=== PATIENT | female | born 1940 | race Caucasian/White ===

== ENCOUNTER 2020-09-27 08:37 | Inpatient (IN) ==
--- NOTE | 2020-08-20 12:22 | PAT Medication Instructions ---
Medication Instructions Date of Service August 20, 2020 Home Medications trazodone 75 mg PO HS acetaminophen [Tylenol] 650 mg PO QID PRN bupropion HCl [Wellbutrin SR] 150 mg PO Q OTHER DAY metoprolol succinate [Toprol XL] 25 mg PO QAM potassium chloride [K-Tab] 10 meq PO QAM rosuvastatin [Crestor] 20 mg PO HS duloxetine 30 mg PO QAM melatonin 10 mg PO HS PRN Continue as directed bupropion HCl [Wellbutrin SR] 150 mg PO Q OTHER DAY DO NOT take the morning of surgery potassium chloride [K-Tab] 10 meq PO QAM Take morning of surgery With a small sip of water, OTHERWISE NOTHING TO EAT OR DRINK AFTER MIDNIGHT: acetaminophen [Tylenol] 650 mg PO QID PRN (okay to take up to 4 hours prior to surgery if needed) metoprolol succinate [Toprol XL] 25 mg PO QAM duloxetine 30 mg PO QAM Take evening before surgery trazodone 75 mg PO HS acetaminophen [Tylenol] 650 mg PO QID PRN (if needed) rosuvastatin [Crestor] 20 mg PO HS melatonin 10 mg PO HS PRN (if needed) Other Notes If you have any questions please call us at [phone] or [phone] or [phone] or [phone]
--- NOTE | 2020-08-24 14:32 | Anesthesiology Consultation ---
Date of Service August 24, 2020 Assessment & Plan (1) Encounter for pre-operative examination: - Per assessment on 08/24: Travel screen negative. No known COVID-19 positive contacts or current COVID-19 related symptoms. Surgeon arranging preop COVID testing (scheduled 08/30; [place]). Awaiting results. - Cardiology office visit: 04/26/20: "She is considered moderate risk from cardiovascular standpoint for a low risk procedure.. I had a long discussion with the patient regarding her cardiovascular history.. Recommend dobutamine stress echocardiography for further risk stratification given abnormal ECG and symptoms reported above. If stress testing within normal limits, she will proceed with EGD as scheduled. Continue current cardiovascular medications including Toprol-XL and statin therapy. No medication changes at this time." Patient had subsequent DSE 04/26/20 with no inducible ischemia and preserved LV systolic function. EGD done 04/2020 without issue. Chart Review Chart Review: Acceptable Risk for Surgery and Patient seen in Pre Admission Testing Teaching & Discussion Pre-Anesthesia Teaching/Discussion Notes: Instructed NPO after midnight before surgery,except medications with 15 cc of water. Medication instructions provided according to the PAT guidelines. History Surgery Operation Date: 09/03/20 10:40 Proposed Procedures p Right Reverse Total Shoulder Arthroplasty - Haris Soares, Height/Weight Height: 5 ft 2 in Weight: 69.3 kg Allergies Allergy/AdvReac Type Severity Reaction Status Date / Time oxycodone AdvReac Intermediate nausea, Verified 08/24/20 14:29 constipation, "didn't feel right" Medications Home Medications Medication Instructions Recorded Confirmed Last Taken trazodone 75 mg PO HS 12/06/18 08/24/20 07/31/20 acetaminophen [Tylenol] 650 mg PO QID PRN 02/23/20 08/24/20 07/31/20 bupropion HCl [Wellbutrin SR] 150 mg PO Q OTHER DAY 02/23/20 08/24/20 07/31/20 metoprolol succinate [Toprol XL] 25 mg PO QAM 02/23/20 08/24/20 07/31/20 potassium chloride [K-Tab] 10 meq PO QAM 02/23/20 08/24/20 07/31/20 rosuvastatin [Crestor] 20 mg PO HS 02/23/20 08/24/20 07/31/20 duloxetine 30 mg PO QAM 06/23/20 08/24/20 07/31/20 melatonin 10 mg PO HS PRN 06/23/20 08/24/20 07/31/20 Past Medical History Medical History (Updated 08/24/20 @ 15:13 by Zakia Patel) Anxiety and depression CAD (coronary artery disease) non-obstructive per 2018 cardiac cath Chronic kidney disease stage III Dyslipidemia Fracture of left ankle, lateral malleolus mechanical fall 07/2016 resulting in left ankle/foot and right shoulder injuries, non-displaced left lateral malleous fracture per 08/01/20 x-ray- ortho monitoring/recommend boot x 3-4 weeks/no surgical intervention planned at this time GERD (gastroesophageal reflux disease) + breakthrough symptoms History of kidney stones History of melanoma right calf and foot Hypertension Macular degeneration Osteoarthritis Osteopenia Tremor of both hands occasional Exercise / Class Metabolic Activity III < 4 Walking/Shop/Light housework Past Family History Family History Other No significant family history Past Surgical History Surgical History H/O total hysterectomy History of cardiac cath 2018- no stents (attempts to obtain official report unsuccesful) History of cataract surgery Left cataract extraction with IOL: 07/13/20: [place] [facility] [place] cataract extraction with IOL: 06/29/20: MAc sedation [place] [facility] [place] History of cholecystectomy History of colonoscopy History of cystoscopy MULTIPLE History of esophagogastroduodenoscopy (EGD) History of lithotripsy MULTIPLE History of parathyroidectomy HYPERCALCEMIA- REASON FOR SURGERY History of repair of rotator cuff RT History of tonsillectomy Past Anesthesia History No Hx of Anesthesia Complications and No Family Hx of Anesthesia Complications History of PONV No Hx of PONV and No Hx of Motion Sickness Social History Smoking Status: Former smoker tobacco type: cigarettes Do You Dip or Chew Tobacco: No Smoking End Date: Quit 50 years ago Hx Alcohol Use: No Hx Substance Use: No Review of Systems Patient denies chest pain, shortness of breath, dyspnea on exertion, joint pain, reflux, cough, wheezing, palpitations. Physical Exam Vital Signs VITALS BP 154/85 P 60 TEMP 98.3 SP02 97%RA RESP 16 PHYSICAL Full neck and c-spine range of motion. Full TMJ range of motion. TMD 3 finger breaths Mallampati Score 3 Dentition: intact, + crowns on molars Lungs: clear throughout to auscultation Cardiac: regular rate and rhythm, no murmurs noted Spine: normal Carotid arteries: negative bruit Extremities: left foot in orthopedic boot Testing Laboratory Results 08/24/20 14:58 08/24/20 14:58 PT 10.9 Seconds (9.0-12.0) 08/24/20 14:58 INR 1.0 (0.9-1.1) 08/24/20 14:58 APTT 25.4 Seconds (21.0-31.0) 08/24/20 14:58 Blood Type O Positive 08/24/20 14:58 Antibody Screen NEGATIVE 08/24/20 14:58 Electrocardiogram Date: 02/23/20 SB with first degree AVB at 54bpm. Septal infarct, age undetermined. Subsequent stress test. Chest X-Ray Date: 08/24/20 FINDINGS: PA and lateral chest radiographs are obtained. No prior studies are available for comparison at the time of dictation. The PA view is degraded by apical lordotic positioning. The cardiomediastinal silhouette is unremarkable noting atherosclerotic calcification of the thoracic aorta. There is mild bibasilar scarring/atelectasis. No airspace consolidation or pleural effusion is identified. There is no pneumothorax. The skeletal structures are osteopenic. Advanced arthritic change and deformity is seen in the right shoulder. A compression deformity is noted in the lower thoracic spine. Fusion hardware is partially visualized in the upper lumbar spine. Cholecystectomy clips are seen in the right upper quadrant. IMPRESSION: No active disease in the chest. Stress Test Date: 04/26/20 Type: DSE DSE is negative for inducible ischemia. LVEF 55-59%. Mild MR/TR. Grade I DD. 102% MPHR.
--- NOTE | 2020-08-24 15:35 | XRay Report ---
TWO VIEW CHEST CLINICAL HISTORY: Preoperative examination. FINDINGS: PA and lateral chest radiographs are obtained. No prior studies are available for compariso n at the time of dictation. The PA view is degraded by apical lordotic positioning. The cardiomediast inal silhouette is unremarkable noting atherosclerotic calcification of the thoracic aorta. There is mild bibasilar scarring/atelectasis. No airspace consolidation or pleural effusion is identified. The re is no pneumothorax. The skeletal structures are osteopenic. Advanced arthritic change and deformit y is seen in the right shoulder. A compression deformity is noted in the lower thoracic spine. Fusion hardware is partially visualized in the upper lumbar spine. Cholecystectomy clips are seen in the ri ght upper quadrant. IMPRESSION: No active disease in the chest. ACT 112: Negative or not required by law. Electronically signed by: Mikael Brown M.D. 08/24/2020 3:34 PM
[2020-08-24 16:10] LABS: Basophils # (auto) 0.02 K/uL (0-0.2); Basophils % (auto) 0.2 %; Eosinophils # (auto) 0.16 K/uL (0-0.5); Eosinophils % (auto) 1.8 %; Hematocrit (blood only) 34.6 % (37-47); Hemoglobin 11.6 g/dL (12.0-16.0); Immature Granulocytes # (auto) 0.02 K/uL (0.00-0.02); Immature Granulocytes % (auto) 0.2 %; Lymphocytes # (auto) 2.08 K/uL (1.2-3.4); Lymphocytes % (auto) 23.9 %; Mean Corpuscular Hgb Conc 33.5 g/dL (32-36); Mean Corpuscular Volume 95.3 fL (80-100); Mean Platelet Volume 9.9 fL (7.4-10.4); Monocytes # (auto) 0.49 K/uL (0.11-0.59); Monocytes % (auto) 5.6 %; Neutrophils # (auto) 5.93 K/uL (1.4-6.5); Neutrophils % (auto) 68.3 %; Platelet Count 231 K/uL (130-400); RDW Coefficient of Variation 12.8 % (11.5-14.5); RDW Standard Deviation 44.8 fL (36.4-46.3); Red Blood Count 3.63 M/uL (4.2-5.4)
[2020-08-24 16:21] LABS: Calcium 10.1 mg/dl (8.5-10.1); Creatinine Clr Calc Pharmacy 39.6 ml/min; Est GFR (African American) 58.5; Est GFR (Non-African American) 50.5; Potassium 4.3 mmol/L (3.5-5.1)
[2020-08-24 16:32] LABS: Partial Thromboplastin Ratio 0.9; Partial Thromboplastin Time 25.4 Seconds (21.0-31.0); Prothrombin Time 10.9 Seconds (9.0-12.0)
[2020-09-01 14:06] LABS: SARS CoV2 RNA (COVID-19) NOT DETECTED (NOT DETECTED)
--- NOTE | 2020-09-02 14:33 | History & Physical Report ---
Date of Service September 02, 2020 Assessment & Plan (1) Rotator cuff arthropathy of right shoulder: We will proceed with a right reverse shoulder arthroplasty. Postoperatively she will be placed in a sling and kept overnight in the hospital for postoperative medical management. She plans to go to outpatient physical therapy upon discharge. She will be living with her son for 3 weeks who lives out of town. Present on Admission?: Yes History of Present Illness Chief Complaint: Rotator cuff arthropathy of the right shoulder Primary Care Provider: Von Hernandez DO Lakshmi is a pleasant 80-year-old female who is been dealing with chronic increasing right shoulder pain. X-rays and clinical examination have been diagnostic for advanced rotator cuff arthropathy of her right shoulder. She can no longer lift her arm. She lives in constant pain. After failing conservative treatment, she has elected to proceed with a right reverse shoulder arthroplasty. Allergies Allergy/AdvReac Type Severity Reaction Status Date / Time oxycodone AdvReac Intermediate nausea, Verified 08/24/20 14:29 constipation, "didn't feel right" Home Medications Home Medications Medication Instructions Recorded Confirmed Type trazodone 75 mg PO HS 12/06/18 08/24/20 History acetaminophen [Tylenol] 650 mg PO QID PRN 02/23/20 08/24/20 History bupropion HCl [Wellbutrin SR] 150 mg PO Q OTHER DAY 02/23/20 08/24/20 History metoprolol succinate [Toprol XL] 25 mg PO QAM 02/23/20 08/24/20 History potassium chloride [K-Tab] 10 meq PO QAM 02/23/20 08/24/20 History rosuvastatin [Crestor] 20 mg PO HS 02/23/20 08/24/20 History duloxetine 30 mg PO QAM 06/23/20 08/24/20 History melatonin 10 mg PO HS PRN 06/23/20 08/24/20 History Past Med/Surg History Medical History Anxiety and depression CAD (coronary artery disease) non-obstructive per 2018 cardiac cath Chronic kidney disease stage III Dyslipidemia Fracture of left ankle, lateral malleolus mechanical fall 07/2016 resulting in left ankle/foot and right shoulder injuries, non-displaced left lateral malleous fracture per 9/6/20 x-ray- ortho monitoring/recommend boot x 3-4 weeks/no surgical intervention planned at this time GERD (gastroesophageal reflux disease) + breakthrough symptoms History of kidney stones History of melanoma right calf and foot Hypertension Macular degeneration Osteoarthritis Osteopenia Tremor of both hands occasional Surgical History H/O total hysterectomy History of cardiac cath 2017- no stents (attempts to obtain official report unsuccesful) History of cataract surgery Left cataract extraction with IOL: 07/13/20: MAC sedation at [facility] Right cataract extraction with IOL: 06/29/20: MAc sedation at [facility] History of cholecystectomy History of colonoscopy History of cystoscopy MULTIPLE History of esophagogastroduodenoscopy (EGD) History of lithotripsy MULTIPLE History of parathyroidectomy HYPERCALCEMIA- REASON FOR SURGERY History of repair of rotator cuff RT History of tonsillectomy Family History Other No significant family history Social History Smoking Status: Former smoker Smoking End Date: Quit 50 years ago; Second Hand Exposure: No; Do You Dip or Chew Tobacco: No; Hx Alcohol Use: No Hx Substance Use: No Preferred Language: [place] Communication Ability: Effective Health Program Analyst Required: No Beliefs That Will Affect Care: None Current Living Situation: Alone Feels Safe at Home: Yes Safety Concerns: Feels Safe At This Time Assistive Devices: Cane and Glasses Review of Systems Review of Systems: All systems reviewed & are unremarkable except as noted in HPI & below Physical Exam Constitutional: WD/WN, vitals as above Eyes: PERRL, conjunctivae normal, anicteric sclerae ENMT: external ear and nose normal, oropharynx normal Neck: trachea midline, no thyromegaly Respiratory: normal respiratory effort Cardiovascular: RRR, no murmur, no edema Gastrointestinal (Abdomen): normal bowel sounds, soft, nontender, no hepatosplenomegaly Musculoskeletal: Physical examination of the right shoulder reveals decreased range of motion and significant weakness. There is tenderness palpation along the anterior glenohumeral joint line. The right upper extremity is neurovascularly intact. Psychiatric: A+Ox3, euthymic affect Results & Data Results & Data ([facility]) Diagnostic Findings Radiographs of the right shoulder show some signs of osteoarthritis with blunting of the greater tuberosity and some superior migration of the humeral head on the glenoid. PG Care Time/CCT Total # of Minutes Spent Total Time Spent with Patient: Total time spent is greater than 50% in coordination of care (as documented) at patient's floor/unit and/or counseling patient: Coding Level of Care Code None Diagnoses Rotator cuff arthropathy of right shoulder M12.811
--- NOTE | 2020-09-23 08:45 | History & Physical Report ---
Date of Service September 23, 2020 Assessment & Plan (1) Rotator cuff arthropathy of right shoulder: We will proceed with a right reverse shoulder arthroplasty. Postoperatively she will be placed in a sling and kept overnight for postop medical management. She plans to go to outpatient physical therapy upon discharge. Present on Admission?: Yes History of Present Illness Chief Complaint: Rotator cuff arthropathy of the right shoulder Primary Care Provider: Von Hernandez DO Lakshmi is a pleasant 80-year-old female who is been dealing with chronic right shoulder pain. 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 She can no longer lift her arm. After failing conservative treatment, she has elected proceed with a right reverse shoulder arthroplasty. Allergies Allergy/AdvReac Type Severity Reaction Status Date / Time oxycodone AdvReac Intermediate nausea, Verified 09/22/20 13:26 constipation, "didn't feel right" Home Medications Home Medications Medication Instructions Recorded Confirmed Type trazodone 75 mg PO HS 12/06/18 09/22/20 History acetaminophen [Tylenol] 650 mg PO QID PRN 02/23/20 09/22/20 History bupropion HCl [Wellbutrin SR] 150 mg PO Q OTHER DAY 02/23/20 09/22/20 History metoprolol succinate [Toprol XL] 25 mg PO QAM 02/23/20 09/22/20 History potassium chloride [K-Tab] 10 meq PO QAM 02/23/20 09/22/20 History rosuvastatin [Crestor] 20 mg PO HS 02/23/20 09/22/20 History duloxetine 30 mg PO QAM 06/23/20 09/22/20 History melatonin 10 mg PO HS PRN 06/23/20 09/22/20 History Past Med/Surg History Medical History Anxiety and depression CAD (coronary artery disease) non-obstructive per 2018 cardiac cath Chronic kidney disease stage III Dyslipidemia Fracture of left ankle, lateral malleolus mechanical fall 07/2016 resulting in left ankle/foot and right shoulder injuries, non-displaced left lateral malleous fracture per 08/01/20 x-ray- ortho monitoring/recommend boot x 3-4 weeks/no surgical intervention planned at this time GERD (gastroesophageal reflux disease) + breakthrough symptoms History of kidney stones History of melanoma right calf and foot Hypertension Macular degeneration Osteoarthritis Osteopenia Tremor of both hands occasional Surgical History H/O total hysterectomy History of cardiac cath 2017- no stents (attempts to obtain official report unsuccesful) History of cataract surgery Left cataract extraction with IOL: 07/13/20: [place] [facility] [place] extraction with IOL: 06/29/20: MA[place] [facility] [place] History of cholecystectomy History of colonoscopy History of cystoscopy MULTIPLE History of esophagogastroduodenoscopy (EGD) History of lithotripsy MULTIPLE History of parathyroidectomy HYPERCALCEMIA- REASON FOR SURGERY History of repair of rotator cuff RT History of tonsillectomy Family History Other No significant family history Social History Smoking Status: Former smoker Second Hand Exposure: No; Hx Alcohol Use: No Hx Substance Use: No Preferred Language: Wolof Communication Ability: Effective Engineering Production Liaison Required: No Beliefs That Will Affect Care: None Current Living Situation: Alone Feels Safe at Home: Yes Assistive Devices: Cane and Glasses Review of Systems Review of Systems: All systems reviewed & are unremarkable except as noted in HPI & below Physical Exam Constitutional: WD/WN, vitals as above Eyes: PERRL, conjunctivae normal, anicteric sclerae ENMT: external ear and nose normal, oropharynx normal Neck: trachea midline, no thyromegaly Respiratory: normal respiratory effort Cardiovascular: RRR, no murmur, no edema Gastrointestinal (Abdomen): normal bowel sounds, soft, nontender, no hepatosplenomegaly Musculoskeletal: Physical examination of the right shoulder reveals decreased range of motion and significant weakness. There is tenderness palpation along the anterior glenohumeral joint line. The right upper extremity is neurovascularly intact. Psychiatric: A+Ox3, euthymic affect Results & Data Results & Data ([facility]) Diagnostic Findings Radiographs of the right shoulder show some signs of osteoarthritis with blunting of the greater tuberosity and some superior migration of the humeral head on the glenoid. PG Care Time/CCT Total # of Minutes Spent Total Time Spent with Patient: Total time spent is greater than 50% in coordination of care (as documented) at patient's floor/unit and/or counseling patient: Coding Level of Care Code None Diagnoses Rotator cuff arthropathy of right shoulder M12.811
[~2020-09-27 08:37] MED LIST: ACETAMINOPHEN 500 MG TAB PO SCH; BUPIVACAINE 0.5 % 5 MG/1 ML PF 10ML VIAL ONE; FAMOTIDINE 20 MG TAB PO SCH; GABAPENTIN 300 MG CAP PO SCH; LR 15ML/HR IV SCH; LR 60ML/HR IV SCH; ROPIVACAINE 0.5% HCL/PF 150 MG, BUPIVACAINE 0.5% MPF 30 ML, EPINEPHrine 30MG/30ML (OR U... INSTIL SCH; TRANEXAMIC ACID 1,000 MG **IV Intra-op IV SCH; TRANEXAMIC ACID 1,000 MG **IV Pre-op IV SCH; ceFAZolin 1000MG 1,000 MG/7.5 ML SYR IV SCH; dexAMETHasone 4 MG TAB PO SCH
--- NOTE | 2020-09-27 09:30 | History & Physical Bridge Note ---
Date of Service September 27, 2020 History & Physical Bridge Note I have examined the patient, reviewed the History & Physical and in the interval since the performance of the History & Physical I have noted the following changes of clinical significance: no changes noted
[2020-09-27] MEDS ORDERED: ONDANSETRON INJ 2 MG/ML 2 ML VIAL ONE ×2 (10:27→10:39)
[2020-09-27] MEDS ORDERED: MIDAZOLAM HCL 1 MG/ML 2ML VIAL ONE ×2 (10:27→10:39)
[2020-09-27] MEDS ORDERED: PROPOFOL IV EMULSION 10 MG/ML 20 ML VIAL IV ONE ×2 (10:27→10:39)
[2020-09-27] MEDS ORDERED: DEXAMETHASONE SOD INJ 4 MG/ML VIAL ONE ×2 (10:27→10:39)
[2020-09-27] MEDS ORDERED: LIDOCAINE HCL 2% 2 ML VIAL/AMP(20MG/ML) INFIL ONE ×2 (10:27→10:39)
[2020-09-27] MEDS ORDERED: fentaNYL citrate 100 MCG/2 ML VIAL ONE ×2 (10:27→10:39)
[2020-09-27] MEDS ORDERED: NEOSTIGMINE METHYLSULFATE 5 MG/5 ML SYR ONE (10:39)
[2020-09-27] MEDS ORDERED: GLYCOPYRROLATE 0.2 MG/ML VIAL ONE ×2 (10:39→12:38)
[2020-09-27] MEDS ORDERED: ORTHO JOINT ANESTHETIC ONE (10:41)
[2020-09-27] MEDS ORDERED: fentaNYL citrate 100 MCG/2 ML VIAL IV PRN (10:45)
[2020-09-27] MEDS ORDERED: ePHEDrine sulfate 50 MG/ML AMP IV PRN (10:45)
[2020-09-27] MEDS ORDERED: ONDANSETRON INJ 2 MG/ML 2 ML VIAL IV PRN ×2 (10:45→14:10)
[2020-09-27] MEDS ORDERED: ATROPINE SULFATE 0.1 MG/ML 10ML SYR IV PRN (10:45)
[2020-09-27] MEDS ORDERED: ROCURONIUM BROMIDE 10 MG/ML 5 ML VIAL IV ONE ×4 (10:46)
[2020-09-27] MEDS ORDERED: LR 60ML/HR IV SCH (11:00)
--- NOTE | 2020-09-27 12:45 | Operative Report ---
PG Post Operative Report Pre & Post Diagnosis Operation Date: 09/27/20 10:55 Pre-Op Diagnosis: Rotator cuff arthropathy of the right shoulder with tendinopathy of the long head of the biceps tendon Post-Op Diagnosis: Rotator cuff arthropathy of the right shoulder with tendinopathy of the long head of the biceps tendon I identified the patient and participated in the time-out.: Yes Procedure Operation Date: 09/27/20 10:55 Actual Procedures p Right Reverse Total Shoulder Arthroplasty, with open biceps tenodesis as a distinct and separate procedure (modifier 59) (Right) - Haris Soares DO Surgeon Haris Soares DO Industrial Conveyor Belt Repairer Haris Sifuentes PAC Estimated Blood Loss 200 Findings Consistent with Post-Op Diagnosis Specimens Right humeral head Complications none Disposition Disposition: Recovery Room Indications Lakshmi is a pleasant 80-year-old female who is been dealing with chronic increasing right shoulder pain. She has a history of a rotator cuff repair in the past. She is gone on to develop cuff arthropathy of the right shoulder. After failing conservative treatment, she has elected to proceed with a right reverse shoulder arthroplasty. Description of Procedure A CPT code modifier 59: The long head of the biceps tendon was enlarged and inflamed consistent with tendinopathy. A tenodesis was opted. This was a separate and distinct portion of the procedure. For these reasons, a CPT code modifier 59 will be added to this case. Implants used: I used a [employer]omet Comprehensive reverse total shoulder arthroplasty system with a size 6 press fit micro humeral stem, a +6 humeral tray and a standard humeral bearing, a 25 mm small augment baseplate with a 6.5 mm central screw and superior, inferior, and anterior locking screws, and a size 36 mm eccentric glenosphere. Lakshmi arrived at [facility] for the above procedure. She was seen in the preoperative holding area and the operative extremity was identified and signed. She was given a preoperative antibiotic, TXA, and an interscalene nerve block. She was taken back to the operating room, laid on table in supine position, and put under general anesthesia. She was then put into the beachchair position. The shoulder was then prepped and draped in sterile fashion. A timeout was done and the patient and the operative extremity was properly identified. A deltopectoral approach was used. Dissection was taken down through the fascia and the deltoid was retracted laterally and the conjoined tendon was retracted medially. The anterior shoulder was exposed. The biceps groove was opened up and the biceps tendon was examined extensively. The biceps tendon demonstrated enlargement and inflammatory changes consistent with longstanding inflammation in the context of osteoarthritis and cuff arthropathy. The long head of the biceps tendon was then tenodesed to the upper border of the pectoralis major. This was a separate and distinct portion of the procedure. The subscapularis was then directly released off the lesser tuberosity with a peel technique. The inferior capsule was released and the humeral head was dislocated. A canal finding reamer was sent down the center of the humeral canal. Sequential reaming up to a size 6 reamer was done. Off that reamer, a proximal humeral resection guide was placed. The proximal humerus was resected at 135 of inclination and 25 of retroversion. Osteophytes were then removed and the glenoid was exposed. Time was spent doing a complete capsular and labral release. The glenoid guide was then placed in the inferior aspect of the glenoid. A 3.2 mm Steinmann pin was then placed into the glenoid vault at 10 of inclination. . The glenoid baseplate was then reamed. The final size 25 mm small augment baseplate was then impacted in the place. A 6.5 mm central screw was then placed followed by superior, inferior, and anterior locking screws. A 36 mm eccentric glenosphere was then impacted into place. Surrounding soft tissues were then injected with 100 cc an orthopedic pain control cocktail. The proximal humerus was then exposed. Sequential broaching of the humerus up to a size 6 broach was done. Off that broach a +6 humeral tray was trialed. The shoulder was then reduced, brought through a full range of motion, and felt to be stable. The shoulder was then dislocated and the broach was removed. The final size 6 micro press-fit humeral stem was then impacted into place. A standard humeral bearing was then snapped onto a +6 humeral tray. The humeral tray was then impacted onto the humeral stem. The shoulder was once again reduced, brought through a full range of motion, and felt to be stable. The subscapularis was then tenodesed back to the lesser tuberosity with transosseous FiberWire sutures and side to side sutures with the arm in 45 of external rotation. A dilute betadyne lavage was then done for 3 minutes. The joint was then irrigated with normal saline solution. Hemostasis was obtained. The interval was closed with 2-0 Vicryl suture. The skin was then closed with 2-0 Vicryl and jamel. A Silverlon dressing was placed and the arm was rested in a regular arm sling. She was then extubated and transferred to a hospital bed. She taken to the postanesthesia care unit in stable condition. She tolerated the procedure well. Haris Sifuentes PA-C, was present for the entire procedure. He was critical for patient positioning, prepping, draping, retraction exposure, wound closure and application of sterile dressing. I attest to the content of the Intraoperative Record and any orders documented therein. Any exceptions are noted below.
[2020-09-27] MEDS ORDERED: MAGNESIUM HYDROXIDE SUSP 30 ML UDC PO PRN (14:10)
[2020-09-27] MEDS ORDERED: oxyCODONE HCL IR 5 MG TAB (IMMEDIATE RELEASE) PO PRN (14:10)
[2020-09-27] MEDS ORDERED: METOCLOPRAMIDE HCL INJ 5 MG/ML 2 ML VIAL IV PRN (14:10)
[2020-09-27] MEDS ORDERED: SODIUM CHLORIDE 0.9% 1000ML 1,000 ML IV SCH (14:10)
[2020-09-27] MEDS ORDERED: NALOXONE HCL 0.4 MG/1 ML VIAL/CARP IV PRN (14:10)
[2020-09-27] MEDS ORDERED: HYDROmorphone INJ 0.5 MG/0.5 ML SYR IV PRN (14:10)
[2020-09-27] MEDS ORDERED: HYDROCODONE/ACETAMOPHEN 5/325MG TAB PO PRN (14:10)
[2020-09-27] MEDS ORDERED: bisacodyL 10 MG SUPP PR PRN (14:10)
[2020-09-27] MEDS ORDERED: Nursing to Pharmacy Communication SCH (14:15)
[2020-09-27] MEDS ORDERED: COUGH DROP (SUGAR FREE) LOZ 24 LOZ/1 BOX BUCCAL PRN (14:19)
--- NOTE | 2020-09-27 14:42 | XRay Report ---
XR shoulder RT min 2V routine HISTORY: 80 years-old Female Post shoulder surgery right shoulder total joint arthroplasty COMPARISON: Chest radiograph 08/24/2020 TECHNIQUE: 2 views of the right shoulder FINDINGS: Reverse right shoulder total joint arthroplasty demonstrates satisfactory alignment. Overlying skin s taples are noted along with expected postsurgical soft tissue swelling and deep tissue air. Fracture with mild displacement of the right acromium appears unchanged from 08/24/2020. There is widening of t he AC joint. No acute fracture identified. Imaged lung sims appear clear. IMPRESSION: Satisfactory alignment of the reverse right shoulder total joint arthroplasty ACT 112: Negative or not required by law. The above report was generated using voice recognition software. It may contain grammatical, syntax o r spelling errors. Electronically signed by: Brain Leavitt M.D. 09/27/2020 2:41 PM
--- NOTE | 2020-09-27 15:13 | Anesthesiology Progress Note ---
Date of Service September 27, 2020 Anesthesia Post Procedure Vital Signs Vital Signs: Temp Pulse Pulse Resp BP Pulse Ox 09/27/20 15:06 36.5 C 67 16 115/65 93 09/27/20 14:26 62 15 119/71 95 09/27/20 13:59 36.4 C L 64 15 107/66 94 09/27/20 13:40 36.3 C L 63 18 121/57 L 96 09/27/20 13:30 63 17 122/53 L 93 09/27/20 13:20 63 17 124/52 L 99 09/27/20 13:10 66 19 130/54 L 100 09/27/20 13:04 36.0 C L 73 16 137/62 99 09/27/20 10:01 37 C 55 L 18 164/79 H 98 09/27/20 09:17 37 C 56 L 18 154/80 H 95 Pain Intensity Right Shoulder: Pain Intensity: 0 Transfer of Care Handoff Completed per policy Notes Mental Status: alert / awake / arousable and participated in evaluation Patient Amnestic to Procedure: Yes Nausea / Vomiting: adequately controlled Pain: adequately controlled Airway Patency, RR, SpO2: stable & adequate BP & HR: stable & adequate Hydration State: stable & adequate Anesthetic Complications: no major complications apparent and Pt Satisfied with anesthetic care
[2020-09-27] MEDS: KETOROLAC TROMETHAMINE 15 MG/ML VIAL IV SCH ×2 (15:31→21:38)
[2020-09-27] MEDS: ACETAMINOPHEN 500 MG TAB PO SCH (18:05)
[2020-09-27] MEDS: ceFAZolin 2000MG 2,000 MG/15 ML SYR IV SCH (18:12)
[2020-09-27] MEDS ORDERED: ROSUVASTATIN CALCIUM 20 MG TAB PO SCH (21:00)
[2020-09-27] MEDS ORDERED: SENNA 8.6 MG TAB PO SCH (21:00)
[2020-09-27] MEDS ORDERED: traZODone HCL 50 MG TAB PO SCH (21:00)
[2020-09-27] MEDS ORDERED: MELATONIN 3 MG TAB PO PRN ×2 (21:03→21:07)
[2020-09-27] MEDS: DOCUSATE SODIUM 100 MG CAP PO SCH (21:37)
[2020-09-28] MEDS: ceFAZolin 2000MG 2,000 MG/15 ML SYR IV SCH (03:39)
[2020-09-28] MEDS: KETOROLAC TROMETHAMINE 15 MG/ML VIAL IV SCH ×2 (03:40→07:59)
[2020-09-28] MEDS: ACETAMINOPHEN 500 MG TAB PO SCH (06:10)
[2020-09-28 06:27] LABS: Hemoglobin 10.5 g/dL (12.0-16.0); Immature Granulocytes # (auto) 0.03 K/uL (0.00-0.02); Immature Granulocytes % (auto) 0.2 %; Lymphocytes # (auto) 1.28 K/uL (1.2-3.4); Lymphocytes % (auto) 9.8 %; Mean Corpuscular Hemoglobin 31.7 pg (25-34); Mean Corpuscular Hgb Conc 33.9 g/dL (32-36); Mean Corpuscular Volume 93.7 fL (80-100); Mean Platelet Volume 9.7 fL (7.4-10.4); Monocytes # (auto) 0.59 K/uL (0.11-0.59); Monocytes % (auto) 4.5 %; Neutrophils # (auto) 11.12 K/uL (1.4-6.5); Neutrophils % (auto) 85.5 %; Platelet Count 224 K/uL (130-400); RDW Coefficient of Variation 12.1 % (11.5-14.5); Red Blood Count 3.31 M/uL (4.2-5.4); White Blood Count 13.02 K/uL (4.8-10.8)
[2020-09-28 06:53] LABS: Creatinine Clr Calc Pharmacy 36.5 ml/min; Est GFR (African American) 53.5; Est GFR (Non-African American) 46.2; Potassium 4.3 mmol/L (3.5-5.1)
--- NOTE | 2020-09-28 07:04 | Orthopedic Progress Note ---
Date of Service September 28, 2020 Assessment & Plan (1) Status post reverse arthroplasty of right shoulder: Overall she is doing fairly well. She is not in much pain in the right shoulder. She will be seen by physical therapy today for ambulation and range of motion exercises. She can be discharged home later this morning. She will follow-up with orthopedics in 2 weeks. Present on Admission?: Yes Admission and Anticipated Discharge Date Admission Date: September 27, 2020 Edison Martins was seen and examined at bedside this morning. Overall she is doing very well. She is not having any pain in the right shoulder. The block is still in effect. She was able to get some sleep last night. She has no complaints. Physical Exam Physical Exam: On physical examination of the right shoulder, the dressing is clean and dry. She is wearing her sling as instructed. I am unable to do a neurologic examination because the block is still in effect. Results & Data ([facility]) Vital Signs (Past 12 Hours) Vital Signs Temp Pulse Resp BP Pulse Ox 09/28/20 03:45 36.6 C 58 L 16 156/77 H 97 09/28/20 00:00 36.2 C L 54 L 15 133/72 93 09/27/20 19:08 36.4 C L 56 L 16 127/71 95 Laboratory Results H & H 08/24/20 09/28/20 Range/Units 14:58 06:01 Hgb 11.6 L 10.5 L (12.0-16.0) g/dL Hct 34.6 L 31.0 L (37-47) % Coagulation 08/24/20 Range/Units 14:58 INR 1.0 (0.9-1.1) Diagnostic Findings Postoperative x-rays of the right shoulder show the prosthesis to be in anatomic alignment without any evidence of fracture, dislocation, or loosening. PG Care Time/CCT Total # of Minutes Spent Total Time Spent with Patient: Total time spent is greater than 50% in coor dination of care (as documented) at patient's floor/unit and/or counseling patient: Coding Level of Care Code None Diagnoses Status post reverse arthroplasty of right shoulder Z96.611
--- NOTE | 2020-09-28 07:07 | Discharge Summary ---
Date of Service September 28, 2020 Admission HPI Per Admitting Provider Lakshmi is a pleasant 80-year-old female who is been dealing with chronic right shoulder pain. 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 She can no longer lift her arm. After failing conservative treatment, she has elected proceed with a right reverse shoulder arthroplasty. Principal Diagnosis Right reverse shoulder replacement Discharge Data Allergies Allergy/AdvReac Type Severity Reaction Status Date / Time oxycodone AdvReac Intermediate nausea, Verified 09/27/20 09:20 constipation, "didn't feel right" Consultations 09/27/20 14:10 Consult Case Management - Discharge Planning Routine Procedures Performed Operation Date: 09/27/20 10:55 Actual Procedures p Right Reverse Total Shoulder Arthroplasty, Uncemented(Right) - Haris Soares DO Ordered Studies 09/03/20 05:00 US - OR guided needle placemen Routine 09/27/20 05:00 US - OR guided needle placemen Routine Hospital Course (1) Status post reverse arthroplasty of right shoulder: On September 27, 2020 Leidy arrived at [facility] and underwent a right reverse shoulder arthroplasty without complication. She had a general anesthetic and a right interscalene nerve block. Postoperatively she was placed in a sling and transferred to the general orthopedic floors. Her hospital course was uneventful. On postop day #1 her H&H was stable and her pain was well controlled. She was seen by physical therapy and was able to do ambulation and range of motion exercises. She was then discharged home. She will follow- up with orthopedics in 2 weeks. Total Time Total Time Spent Total Time Spent (In Minutes): 20 Discharge Plan Discharge Items Patient Disposition: Home - Home Health Services Reason For Visit: Right Shoulder Degenerative Joint Disease Discharge Diagnosis: Right reverse shoulder Activity: As commented below Non-emergency contact: Surgeon Call non-emergency contact if: your wound has increased redness and your wound has increased drainage Follow-up/Referrals: Von Hernandez DO [Primary Care Provider] - Diet: Regular Addtl Attending Provider Instructions: Activity and Therapy Recommendations: * If you are using [facility] then therapy will be provided at your home until they feel you have accomplished all of your goals. * If you are using [facility] then Physical Therapy will be provided until they feel you are ready to start Outpatient Physical Therapy. * If you are not using home therapy then Outpatient Physical Therapy should start about 3-5 days from your day of surgery. Therapy will last about 8-12 weeks * Wear your sling for 3 weeks, unless otherwise instructed. You may remove your sling to shower and to dress, but otherwise, you should be in your sling at all times, including while sleeping * The shoulder replacement is very stable and you can use your hand while in the sling * You were shown a series of exercises in the hospital. Do these exercises daily including the exercises you were shown in physical therapy. Medications: * Narcotic You will likely be sent home from the hospital with a prescription for the narcotic pain medication that worked best throughout your stay. * Other medications may be prescribed for specific circumstances. If you have any questions, please call the office at . * Resume previous home medications unless otherwise instructed Dressing Care: Leave the Silverlon dressing in place for 7 days. After 7 days you may remove the dressing. If the incision is not draining then you may leave the jamel open to air. If there is a little bit of drainage or if the jamel are getting stuck on your clothing then cover the incision with a dry dressing. The jamel will be removed at your 2 week follow-up appointment. Showering: You may shower with the Silverlon dressing in place. Do not let the shower spray hit the dressing directly. Pat the Silverlon dressing dry. If the dressing becomes wet underneath, then simply remove the dressing. Keep the incision dry until you are 7 days out from the day of surgery. After 7 days you may remove the Silverlon dressing and shower with the jamel exposed. Let soapy water run over the jamel and pat them dry. Do not scrub or soak the incision. Things To Watch For: * Drainage from the incision site that occurs more than one week after your surgery. * Increased redness at the incision site. * Fever above 102 degrees Fahrenheit. * Unusual chest pain or shortness of breath. * Call [facility] at with any of the above problems Follow-Up Visit: Follow-up with Dr. Soares's PA (Haris Sifuentes) 2-3 weeks after your day of surgery. He will remove your jamel and answer any questions. If you have any additional questions or concerns, Dr Soares is usually in the office at the same time and will be available An appointment was probably scheduled when you signed-up for surgery in the office. If you have any questions call More detailed instructions as well as Frequently Asked Questions were provided in a folder by our office when you signed-up for surgery. Please review these instructions when you get home. If you have any further questions or concerns, please feel free to call the office at [phone] Pending Studies at Discharge: No Stand-Alone Forms: [facility], Sm[facility] Cessation Medications and DC Order Prescriptions: New tramadol 50 mg tablet 50 mg PO Q6H PRN (Reason: pain) Qty: 30 RF: 0 Continued bupropion HCl [Wellbutrin SR] 150 mg tablet sustained-release 12 hr 150 mg PO Q OTHER DAY RF: 0 potassium chloride [K-Tab] 10 mEq Tablet Extended Release 10 meq PO QAM RF: 0 metoprolol succinate [Toprol XL] 25 mg tablet extended release 24 hr 25 mg PO QAM RF: 0 rosuvastatin [Crestor] 20 mg tablet 20 mg PO HS RF: 0 acetaminophen [Tylenol] 325 mg Capsule 650 mg PO QID PRN (Reason: Pain) RF: 0 psyllium husk [Metamucil] 0.4 gram Capsule 0.4 g PO DAILY RF: 0 [employer] 1 cap PO DAILY RF: 0 trazodone 50 mg Tablet 75 mg PO HS RF: 0 duloxetine 30 mg Capsule,Delayed Release(Dr/Ec) 30 mg PO QAM RF: 0 melatonin 10 mg Tablet 10 mg PO HS PRN (Reason: Sleep) RF: 0 Discharge Orders: Discharge Order (Routine); Ordered 09/28/20 Ordered By: Haris Soares Admission Data Admit Date/Time: 09/27/20 13:06 Attending Provider: Haris Soares Admit Provider: Haris Soares Primary Care Provider: Von Hernandez Coding Level of Care Code D/C Day Management <30 mins Diagnoses Status post reverse arthroplasty of right shoulder Z96.611
[2020-09-28] MEDS: DOCUSATE SODIUM 100 MG CAP PO SCH (07:59)
[2020-09-28] MEDS ORDERED: dexAMETHasone 4 MG TAB PO SCH (08:00)
[2020-09-28] MEDS ORDERED: METOPROLOL SUCC 25MG EXT REL TAB PO SCH (09:00)
[2020-09-28] MEDS ORDERED: MULTIVITAMIN TAB PO SCH (09:00)
[2020-09-28] MEDS ORDERED: buPROPion SR 150 MG TABCR PO SCH (09:00)
[2020-09-28] MEDS ORDERED: POTASSIUM CHLORIDE 10 MEQ TABCR PO SCH (09:00)
[2020-09-28] MEDS ORDERED: DULoxetine HCL 30 MG CAP PO SCH (09:00)
--- NOTE | 2020-09-28 10:28 | Anesthesiology Progress Note ---
Date of Service September 28, 2020 Anesthesia Post Procedure Vital Signs Vital Signs: Temp Pulse Pulse Resp BP Pulse Ox 09/28/20 08:29 36.6 C 63 59 L 16 125/74 92 09/28/20 07:13 36.6 C 59 L 16 125/74 92 09/28/20 03:45 36.6 C 58 L 16 156/77 H 97 09/28/20 00:00 36.2 C L 54 L 15 133/72 93 09/27/20 19:08 36.4 C L 56 L 16 127/71 95 09/27/20 16:00 36.4 C L 61 16 103/62 96 09/27/20 15:06 36.5 C 67 16 115/65 93 09/27/20 14:26 62 15 119/71 95 09/27/20 13:59 36.4 C L 64 15 107/66 94 09/27/20 13:40 36.3 C L 63 18 121/57 L 96 09/27/20 13:30 63 17 122/53 L 93 09/27/20 13:20 63 17 124/52 L 99 09/27/20 13:10 66 19 130/54 L 100 09/27/20 13:04 36.0 C L 73 16 137/62 99 Pain Intensity Right Shoulder: Pain Intensity: 0 Notes Mental Status: alert / awake / arousable and participated in evaluation Patient Amnestic to Procedure: Yes Nausea / Vomiting: adequately controlled Pain: adequately controlled Airway Patency, RR, SpO2: stable & adequate BP & HR: stable & adequate Hydration State: stable & adequate Anesthetic Complications: no major complications apparent and Pt Satisfied with anesthetic care
== END 2020-09-28 12:38 | disposition home health service (06) | DRG 483 ==
LOC: ASU 08:37 → 3E 13:06

== ENCOUNTER 2025-02-27 11:57 | Inpatient (IN) ==
[2025-02-27 13:15] LABS: Basophils # (auto) 0.05 K/uL (0.00-0.20); Basophils % (auto) 0.6 %; Eosinophils # (auto) 0.17 K/uL (0.00-0.50); Hematocrit (blood only) 37.5 % (37.0-47.0); Hemoglobin 12.6 g/dl (12.0-16.0); Immature Granulocytes # (auto) 0.03 K/uL (0.01-0.20); Immature Granulocytes % (auto) 0.4 %; Lymphocytes # (auto) 1.56 K/uL (1.20-3.40); Lymphocytes % (auto) 18.3 %; Mean Corpuscular Hemoglobin 31.9 pg (25.0-34.0); Mean Corpuscular Hgb Conc 33.6 g/dL (32.0-36.0); Mean Corpuscular Volume 94.9 fL (80.0-100.0); Mean Platelet Volume 9.6 fL (9.4-12.4); Monocytes # (auto) 0.38 K/uL (0.11-0.59); Monocytes % (auto) 4.5 %; Neutrophils # (auto) 6.34 K/uL (1.40-6.50); Neutrophils % (auto) 74.2 %; Platelet Count 315 K/uL (130-400); RDW Coefficient of Variation 12.6 % (11.5-14.5); RDW Standard Deviation 43.6 fL (36.4-46.3); Red Blood Count 3.95 M/uL (4.20-5.40); White Blood Count 8.53 K/ul (4.8-10.8)
[2025-02-27 13:29] LABS: Alanine Aminotransferase 9 U/L (7-52); Albumin Globulin Ratio 1.6 (0.9-2); Albumin Level 4.2 gm/dl (3.4-5.0); Alkaline Phosphatase 60 U/L (34-104); Anion Gap 5 (3-11); Aspartate Aminotransferase 20 U/L (13-39); BUN Creatinine Ratio 19.5 (10-20); Bilirubin,Total 0.6 mg/dl (0.2-1.0); Blood Urea Nitrogen 16 mg/dl (6-23); Calcium 10.4 mg/dl (8.6-10.3); Carbon Dioxide 29 mmol/L (21-32); Chloride 106 mmol/L (98-107); Globulin 2.6 gm/dl (2.5-4.0); Glucose 100 mg/dl (70-99(Fasting)); Potassium 4.2 mmol/L (3.5-5.1); Sodium 140 mmol/L (136-145); Total Protein 6.8 gm/dl (6.0-8.3)
--- NOTE | 2025-02-27 14:18 | XRay Report ---
XR chest 1V not portable HISTORY: 84 years-old Female dizzy acute dizziness COMPARISON: 07/28/2023 TECHNIQUE: PA view of the chest FINDINGS: Cardiomediastinal and hilar silhouettes are within normal limits. Atherosclerosis of the aorta. No pn eumothorax, pleural effusion or airspace consolidation. Right shoulder arthroplasty. Cholecystectomy. IMPRESSION: No acute process. ACT 112: Negative or not required by law. The above report was generated using voice recognition software. It may contain grammatical, syntax o r spelling errors. Electronically signed by: Felix Leavitt M.D. 02/27/2025 2:16 PM
--- NOTE | 2025-02-27 15:23 | Emergency Department Note ---
Impression & Plan Complicated urinary tract infection, Abdominal pain, suprapubic, Heme positive stool ED Provider Note NAME: DESEAN GOMEZ AGE: 84 SEX: F : 1940 ARRIVES VIA: Ambulance INFORMANT: [Patient][, ] ED PROVIDER(S): [Linden Jacques MD] CHIEF COMPLAINT: Lower abdominal pain, possible UTI, constipation, dark stool MEDICAL DECISION MAKING: [Screening KUB was ordered. Patient's KUB showed nonobstructive bowel gas pattern. The patient's urine culture was reviewed which showed the patient does have drug-resistant Pseudomonas. Not amenable to p.o. antibiotics. The patient was ordered IV cefepime 2 g. Patient did have a Hemoccult completed. No melena or bright red blood. Patient did have hemorrhoids. Hemoccult positive. Patient's blood work shows a normal white count hemoglobin and platelet count. The patient's kidney function is unremarkable mild hypercalcemia 10.4. KUB report pending at the time of admission. I did speak with the on-call hospital service Dr. Ni and the patient was admitted to the medicine service. KUB which showed patient could have vascular calcifications for possible splenic artery aneurysm. CT abdomen pelvis was ordered by the inpatient service. Discussion w/ other healthcare providers: Dr. Ni inpatient medicine service Prior /Outside records reviewed: none Differential diagnosis: Appendicitis, ovarian cyst, ovarian torsion, ectopic , TOA, PID, diverticulitis, UTI, obstruction, inflammatory bowel disease, renal colic, PUD, pancreatitis, biliary pathology, hernia, volvulus, constipation, as well as other pathologies were considered. Diagnostics, as interpreted by me: ECG: [none] Cardiac monitoring: An order was placed for continuous cardiac monitoring. The monitor shows a rate of 69 with sinus rhythm. [Patient was placed on pulse oximetry] Medical decision rules: [none] Imaging studies: [I informally interpreted the patient's KUB shows nonobstructive bowel gas pattern with formal report to follow.] [] HPI: Patient presents due to concern for lower abdominal pain as well as dark stools. The patient states that she noticed dark stool about a month ago. The patient states that she has had abdominal pain since October but may be worse within the last week. Patient reports that she was told that she likely had a UTI after giving a urine sample through her PCPs office and was ordered antibiotics but is yet to pick these up. Patient denies any chest pains or shortness of breath. No nausea or vomiting. No known sick contacts or any recent travel. Patient reports that she had a colonoscopy years ago and was told that she would not need one any further. The patient does have a history of hemorrhoids. Patient denies any prior history of IBD. She does not take any blood thinning medications. Patient reports that patient did have a small amount of stool this morning but states that sometimes she has been having stools every 2 weeks. PAST MEDICAL HISTORY: [See Below] PAST SURGICAL HISTORY: [See Below] SOCIAL HISTORY: [See Below] HOME MEDICATIONS: [See Below] ALLERGIES: [See Below] VITALS: [See Below] PHYSICAL EXAMINATION: GENERAL: NAD, non-toxic. EYE EXAM: Normal conjunctiva. PERRL, no anisocoria and EOM's grossly intact w/o pain. OROPHARYNX: Moist mucus membranes, grossly normal dentition. NECK: Trachea midline, no stridor. [Supple, no nuchal rigidity, no adenopathy, non-tender. No signs of meningismus. FROM of the neck with good chin to chest and neck extension.] LUNGS: Clear to auscultation. Normal chest wall mechanics. HEART: NSR, no MRG. ABDOMEN: Abdomen soft, suprapubic pain without right lower quadrant and left lower quadrant pain, no masses, no rebound or guarding. BACK: No CVA TTP. SKIN: No rashes and no bruising. Rectal: Nonthrombosed nonbleeding external hemorrhoids. No melena or bright red blood per rectum. Heme positive. UPPER EXTREMITIES: Upper extremities are grossly normal. LOWER EXTREMITIES: Grossly normal, no edema. NEURO EXAM: A&O x3, cranial nerves II-XII grossly intact, normal speech, moves all 4 extremities. Past Med/Surg History Problem List (Updated 02/27/25 @ 22:10 by Linden Jacques MD) Heme positive stool (Acute) Abdominal pain, suprapubic (Acute) Complicated urinary tract infection (Acute) Complicated UTI (urinary tract infection) Pes anserine bursitis Sensorineural hearing loss (SNHL) of both ears 1st MTP arthritis COVID-19 (Acute) Pain in shoulder region after shoulder replacement Scapular fracture Osteoarthritis of right knee Rotator cuff arthropathy of left shoulder Status post reverse arthroplasty of right shoulder (~09/2020) History of hysterectomy Ankle pain Fracture of fifth metatarsal bone Hypertension (Acute) Dyslipidemia Osteopenia History of cholecystectomy History of parathyroidectomy HYPERCALCEMIA- REASON FOR SURGERY CAD (coronary artery disease) non-obstructive per 2018 cardiac cath Medical History Herniated intervertebral disc of lumbar spine Fracture of left ankle, lateral malleolus mechanical fall 07/2016 resulting in left ankle/foot and right shoulder injuries, non-displaced left lateral malleous fracture per 08/01/20 x-ray- ortho monitoring/recommend boot x 3-4 weeks/no surgical intervention planned at this time History of kidney stones Osteoarthritis Chronic kidney disease stage III GERD (gastroesophageal reflux disease) + breakthrough symptoms History of melanoma right calf and foot Macular degeneration Anxiety and depression Tremor of both hands occasional Surgical History History of lumbar laminectomy L4 -L5 History of cardiac cath 2017- no stents (attempts to obtain official report unsuccesful) History of cataract surgery Left cataract extraction with IOL: 07/13/20: MAC sedation at [facility] [place] Right cataract extraction with IOL: 06/29/20: MAc sedation at [facility] [place] History of repair of rotator cuff RT History of lithotripsy MULTIPLE History of cystoscopy MULTIPLE History of esophagogastroduodenoscopy (EGD) History of colonoscopy H/O total hysterectomy History of tonsillectomy Family History Other No significant family history Social History Smoking Status: Never smoker Second Hand Exposure: No; Do You Dip or Chew Tobacco: No; Hx Alcohol Use: No Hx Substance Use: No Preferred Language: Polish Communication Ability: Effective 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 lisinopril AdvReac Intermediate Cough Verified 02/27/25 16:48 oxycodone AdvReac Intermediate nausea, Verified 02/27/25 16:44 constipation, "didn't feel right" Home Meds Home Medications Medication Instructions Recorded Confirmed metoprolol succinate 25 mg 25 mg PO QAM 02/23/20 02/27/25 tablet,extended release 24 hr (Toprol XL) rosuvastatin 20 mg tablet (Crestor) 20 mg PO QAM 02/23/20 02/27/25 psyllium husk 0.4 gram capsule 0.4 g PO DAILY PRN Constipation 09/27/20 02/27/25 (Metamucil) acetaminophen 650 mg 650 mg PO TID PRN Pain 11/02/20 02/27/25 tablet,extended release amlodipine 5 mg tablet 2.5 mg PO QAM 07/02/23 02/27/25 escitalopram oxalate 10 mg tablet 10 mg PO QAM 07/02/23 02/27/25 amitriptyline 10 mg tablet 10 mg PO HS 02/27/25 02/27/25 cefpodoxime 100 mg tablet 100 mg PO BID 02/27/25 02/27/25 cetirizine 10 mg tablet (Zyrtec) 10 mg PO DAILY 02/27/25 02/27/25 cyanocobalamin (vitamin B-12) 1,000 mcg sublingual DAILY 02/27/25 02/27/25 1,000 mcg sublingual tablet famotidine 20 mg tablet 20 mg PO BID 02/27/25 02/27/25 fluticasone propionate 50 2 spray intranasal DAILY 02/27/25 02/27/25 mcg/actuation nasal spray,suspension melatonin 10 mg chewable tablet 20 mg PO HS 02/27/25 02/27/25 nystatin 100,000 unit/gram topical 1 applic topical TID PRN UNDER 02/27/25 02/27/25 powder (Klayesta) BREASTS NEEDED omeprazole 20 mg tablet,delayed 20 mg PO DAILY 02/27/25 02/27/25 release polyethylene glycol 3350 17 17 g PO DAILY PRN Constipation 02/27/25 02/27/25 gram/dose oral powder (Miralax) potassium citrate 10 mEq (1,080 10 meq PO QAM 02/27/25 02/27/25 mg) tablet,extended release Previous Rx's Medication Instructions Recorded tramadol 50 mg tablet 50 mg PO Q6H PRN pain #30 tabs 10/16/24 meloxicam 15 mg tablet 15 mg PO DAILY #30 tabs 01/13/25 Results & Data (ED) Vital Signs Vital Signs - 24 hr 02/27/25 12:03 02/27/25 14:45 02/27/25 15:56 Temperature 36.7 C Temperature Source Temporal Artery Scan Pulse Rate 78 64 Pulse Rate [Finger] 60 Respiratory Rate 16 18 Respiratory Effort / Characteristics Non-Labored Non-Labored Spontaneous Respiratory Depth Normal Normal Respiratory Pattern Regular Regular Blood Pressure 196/87 H Blood Pressure [Right Arm] 177/89 H Blood Pressure Mean 123 Blood Pressure Mean [Right Arm] 118 Blood Pressure Position [Right Arm] Semi-fowlers Pulse Oximetry 97 96 Oxygen Delivery Method Room Air Room Air Sepsis Recent Fever Within 48 Hours No Sepsis New/Unexplained Change in Mental Status N/A Sepsis Action Taken by Nursing No Action Required Home Medications Current Medication List: was personally reviewed by me Laboratory Data Attestation: I reviewed the patient's lab results. 02/27/25 12:29 02/27/25 12:29 Lab Results 02/27/25 Range/Units 12:29 WBC 8.53 (4.8-10.8) K/ul RBC 3.95 L (4.20-5.40) M/uL Hgb 12.6 (12.0-16.0) g/dl Hct 37.5 (37.0-47.0) % MCV 94.9 (80.0-100.0) fL MCH 31.9 (25.0-34.0) pg MCHC 33.6 (32.0-36.0) g/dL RDW Std Deviation 43.6 (36.4-46.3) fL RDW Coeff of Katrin 12.6 (11.5-14.5) % Plt Count 315 (130-400) K/uL MPV 9.6 (9.4-12.4) fL Immature Gran % (Auto) 0.4 % Neut % (Auto) 74.2 % Lymph % (Auto) 18.3 % [place] % (Auto) 4.5 % Eos % (Auto) 2.0 % Baso % (Auto) 0.6 % Neut # (Auto) 6.34 (1.40-6.50) K/uL Lymph # (Auto) 1.56 (1.20-3.40) K/uL [place] # (Auto) 0.38 (0.11-0.59) K/uL Eos # (Auto) 0.17 (0.00-0.50) K/uL Baso # (Auto) 0.05 (0.00-0.20) K/uL Immature Gran # (Auto) 0.03 (0.01-0.20) K/uL Sodium 140 (136-145) mmol/L Potassium 4.2 (3.5-5.1) mmol/L Chloride 106 (98-107) mmol/L Carbon Dioxide 29 (21-32) mmol/L Anion Gap 5 (3-11) BUN 16 (6-23) mg/dl Creatinine 0.82 (0.6-1.2) mg/dl Est Cr Clr Drug Dosing Not Reportable eGFR 70.93 BUN/Creatinine Ratio 19.5 (10-20) Glucose 100 H (70-99(Fasting)) mg/dl Calcium 10.4 H (8.6-10.3) mg/dl Total Bilirubin 0.6 (0.2-1.0) mg/dl AST 20 (13-39) U/L ALT 9 (7-52) U/L Alkaline Phosphatase 60 (34-104) U/L Total Protein 6.8 (6.0-8.3) gm/dl Albumin 4.2 (3.4-5.0) gm/dl Globulin 2.6 (2.5-4.0) gm/dl Albumin/Globulin Ratio 1.6 (0.9-2) Lipase 11 (11-82) U/L Administered Medications Lidocaine (Lidocaine 5% 1 Patch) 1 patch TD QAM [facility] Stop: 03/29/25 16:59 Last Admin: 02/27/25 17:01 Dose: 1 patch Documented By: LUCAS Miscellaneous (Remove Lidoderm Patch) 1 each N/A DAILY@2100 [facility] Stop: 03/29/25 20:59 Last Admin: 02/27/25 22:02 Dose: Not Given Documented By: JR Discontinued Medications Cefepime HCl (Maxipime 2000mg) 2,000 mg in 20 mls @ 5 mls/min IV NOW STA; Protocol Stop: 02/27/25 15:54 Last Admin: 02/27/25 16:11 Dose: 5 mls/min Documented By: LUCAS Ioversol (Optiray 320 100ml) 93 ml IV ONCE ONE Stop: 02/27/25 21:33 Last Admin: 02/27/25 21:32 Dose: 93 ml Documented By: HUBER Imaging Data Radiologist's Impression: Chest X-Ray 02/27/25 12:11 XR chest 1V not portable HISTORY: 84 years-old Female dizzy acute dizziness COMPARISON: 07/28/2023 TECHNIQUE: PA view of the chest FINDINGS: Cardiomediastinal and hilar silhouettes are within normal limits. Atherosclerosis of the aorta. No pneumothorax, pleural effusion or airspace consolidation. Right shoulder arthroplasty. Cholecystectomy. IMPRESSION: No acute process. ACT 112: Negative or not required by law. The above report was generated using voice recognition software. It may contain grammatical, syntax or spelling errors. Electronically signed by: Felix Leavitt M.D. 02/27/2025 2:16 PM KUB X-Ray 02/27/25 15:48 Exam: Single view abdomen. History: Lower abdominal pain. Comparison: None. Findings: Surgical clips right upper abdomen. Vascular calcifications left upper abdomen. Question splenic artery aneurysm measuring 1.5 cm diameter. Lower lumbar spine fusion hardware. Bowel gas pattern is nonobstructive. No gas projects over the included liver. Surgical clip projects over the left pelvis. Suspect migrated cholecystectomy clip. Amorphous densities large bowel distribution consistent with mild stool burden. No discrete mass. Impression: 1. Nonobstructive bowel gas pattern. 2. Likely cholecystectomy changes. 3. Vascular calcifications with findings worrisome for splenic artery aneurysm measuring 1.[address] would be helpful for further characterization. 4. Otherwise no findings to indicate source of patient's symptoms. Electronically signed by Camacho Figueroa 02-27-2025 4:28 PM Discharge Plan Visit Data Chief Complaint: Illness Stated Complaint: ILLNESS ED Provider: Linden Jacques Discharge Problem: Complicated urinary tract infection, Abdominal pain, suprapubic, Heme positive stool Discharge Instructions Interventions: ED Discharge Assessment Last Done: 02/27/25 21:16
--- NOTE | 2025-02-27 15:27 | Electrocardiogram Report ---
Test Reason : Blood Pressure : */* mmHG Vent. Rate : 67 BPM Atrial Rate : 67 BPM P-R Int : 192 ms QRS Dur : 60 ms QT Int : 372 ms P-R-T Axes : 37 30 62 degrees QTcB Int : 393 ms Normal sinus rhythm Normal ECG When compared with ECG of 28-Jul-2023 23:06, Nonspecific T wave abnormality no longer present Confirmed by Howard Soliman ([id number]) on 02/27/2025 3:27:18 PM Referred By: Confirmed By: Howard Soliman
[2025-02-27 15:55] LABS: Lipase 11 U/L (11-82)
[2025-02-27] MEDS: CEFEPIME 2000MG 2,000 MG/20 ML SYR IV STA (16:11)
--- NOTE | 2025-02-27 16:28 | XRay Report ---
Exam: Single view abdomen. History: Lower abdominal pain. Comparison: None. Findings: Surgical clips right upper abdomen. Vascular calcifications left upper abdomen. Question splenic artery aneurysm measuring 1.5 cm diameter. Lower lumbar spine fusion hardware. Bowel gas pattern is nonobstructive. No gas projects over the included liver. Surgical clip projects over the left pelvis. Suspect migrated cholecystectomy clip. Amorphous densities large bowel distribution consistent with mild stool burden. No discrete mass. Impression: 1. Nonobstructive bowel gas pattern. 2. Likely cholecystectomy changes. 3. Vascular calcifications with findings worrisome for splenic artery aneurysm measuring 1.[address] would be helpful for further characterization. 4. Otherwise no findings to indicate source of patient's symptoms. Electronically signed by Camacho Figueroa 02-27-2025 4:28 PM
--- NOTE | 2025-02-27 16:52 | History & Physical Report ---
Date of Service February 27, 2025 Assessment & Plan (1) Complicated UTI (urinary tract infection): Plan Patient is a 84-year-old female with past medical history significant for hypertension, CKD, hyperparathyroidism, GERD, hyperlipidemia, MDD, B12 deficiency, kidney stones, OA, osteoporosis who was admitted for a drug- resistant UTI. Patient also noting that she has been having black stools, abdominal pain and nausea and vomiting. 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 pending IV Cefepime Follow repeat urine sample Melena Possible GI Bleed Pt states she's been having abd pain with black stools, N/V KUB ordered in the ED FOBT pending CT abd/pelvis pending Hgb stable at 12.6 PRN antiemetics Follow H/H, consider GI consult in AM Continue other home meds as ordered Diet: clears, NPO after midnight DVT prophylaxis: SCDs Dispo: admit to med/surg History of Present Illness Chief Complaint: abdominal pain, black stools Primary Care Provider: Von Hernandez DO Patient is a 84-year-old female with past medical history significant for hypertension, CKD, hyperparathyroidism, GERD, hyperlipidemia, MDD, B12 deficiency, kidney stones, OA, osteoporosis who was admitted for a drug- resistant UTI. Patient also noting that she has been having black stools, abdominal pain and nausea and vomiting. patient states that for the past 2 weeks she has been having black tarry stools. States she went to her primary care provider 2 weeks ago and had a urine culture done which subsequently came back positive for bacteria that was resistant to certain antibiotics. States that her primary care provider prescribed her a medication to help with her pharmacy could not obtain that medication for some time. States that it took 6 days for her to get the medication. States that she took the first dose last night and is wondering whether that was causing her nausea and vomiting. States that her abdominal pain has been persistent. Has been having some burning with urination as well as abdominal pain. Denies any fevers but does note that she is freezing at night. Denies any urinary incontinence. Per epic chart review, patient called into her primary care's office concerned about her black tarry stool as well as the nausea and vomiting and abdominal pain and was advised to present to the emergency room. In the emergency room her labs were stable as well as her vitals. ED asking for admission based on outpatient urine culture noting Pseudomonas resistant to the oral fluoroquinolones and requiring admission for IV antibiotics. Allergies Allergy/AdvReac Type Severity Reaction Status Date / Time pollen extracts Allergy Mild RUNNY NOSE Verified 02/27/25 16:48 Penicillins Allergy Unknown HAPPENED A Verified 02/27/25 16:44 LONG TIME AGO. lisinopril AdvReac Intermediate Cough Verified 02/27/25 16:48 oxycodone AdvReac Intermediate nausea, Verified 02/27/25 16:44 constipation, "didn't feel right" Home Medications Medication Instructions Recorded Confirmed Type metoprolol succinate 25 mg 25 mg PO QAM 02/23/20 02/27/25 History tablet,extended release 24 hr (Toprol XL) rosuvastatin 20 mg tablet (Crestor) 20 mg PO QAM 02/23/20 02/27/25 History psyllium husk 0.4 gram capsule 0.4 g PO DAILY PRN Constipation 09/27/20 02/27/25 History (Metamucil) acetaminophen 650 mg 650 mg PO TID PRN Pain 11/02/20 02/27/25 History tablet,extended release amlodipine 5 mg tablet 2.5 mg PO QAM 07/02/23 02/27/25 History escitalopram oxalate 10 mg tablet 10 mg PO QAM 07/02/23 02/27/25 History tramadol 50 mg tablet 50 mg PO Q6H PRN pain #30 tabs 10/16/24 02/27/25 Rx meloxicam 15 mg tablet 15 mg PO DAILY #30 tabs 01/13/25 02/27/25 Rx amitriptyline 10 mg tablet 10 mg PO HS 02/27/25 02/27/25 History cefpodoxime 100 mg tablet 100 mg PO BID 02/27/25 02/27/25 History cetirizine 10 mg tablet (Zyrtec) 10 mg PO DAILY 02/27/25 02/27/25 History cyanocobalamin (vitamin B-12) 1,000 mcg sublingual DAILY 02/27/25 02/27/25 History 1,000 mcg sublingual tablet famotidine 20 mg tablet 20 mg PO BID 02/27/25 02/27/25 History fluticasone propionate 50 2 spray intranasal DAILY 02/27/25 02/27/25 History mcg/actuation nasal spray,suspension melatonin 10 mg chewable tablet 20 mg PO HS 02/27/25 02/27/25 History nystatin 100,000 unit/gram topical 1 applic topical TID PRN UNDER 02/27/25 02/27/25 History powder (Klayesta) BREASTS NEEDED omeprazole 20 mg tablet,delayed 20 mg PO DAILY 02/27/25 02/27/25 History release polyethylene glycol 3350 17 17 g PO DAILY PRN Constipation 02/27/25 02/27/25 History gram/dose oral powder (Miralax) potassium citrate 10 mEq (1,080 10 meq PO QAM 02/27/25 02/27/25 History mg) tablet,extended release Past Med/Surg History Problem List (Updated 02/27/25 @ 21:15 by Shannan Ni MD) Complicated UTI (urinary tract infection) Pes anserine bursitis Sensorineural hearing loss (SNHL) of both ears 1st MTP arthritis COVID-19 (Acute) Pain in shoulder region after shoulder replacement Scapular fracture Osteoarthritis of right knee Rotator cuff arthropathy of left shoulder Status post reverse arthroplasty of right shoulder (~09/2020) History of hysterectomy Ankle pain Fracture of fifth metatarsal bone Hypertension (Acute) Dyslipidemia Osteopenia History of cholecystectomy History of parathyroidectomy HYPERCALCEMIA- REASON FOR SURGERY CAD (coronary artery disease) non-obstructive per 2018 cardiac cath Medical History Herniated intervertebral disc of lumbar spine Fracture of left ankle, lateral malleolus History of kidney stones Osteoarthritis Chronic kidney disease GERD (gastroesophageal reflux disease) History of melanoma Macular degeneration Anxiety and depression Tremor of both hands Surgical History History of lumbar laminectomy History of cardiac cath History of cataract surgery History of repair of rotator cuff History of lithotripsy History of cystoscopy History of esophagogastroduodenoscopy (EGD) History of colonoscopy H/O total hysterectomy History of tonsillectomy Family History Other No significant family history Social History Smoking Status: Never smoker Second Hand Exposure: No; Do You Dip or Chew Tobacco: No; Hx Alcohol Use: No Hx Substance Use: No Preferred Language: Latvian Communication Ability: Effective 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 No acute distress HEENT: NC/AT CV: RRR Resp: Breath sounds clear bilaterally, no increased effort of breathing Abdomen: Soft, nontender back: tender to palpation over right scapula area Extremities: No edema in lower extremities bilaterally. Results & Data Results & Data Vital Signs (Past 12 Hours) Vital Signs Temp Pulse Pulse Resp BP BP Pulse Ox 02/27/25 15:56 64 02/27/25 14:45 60 18 177/89 H 96 02/27/25 12:03 36.7 C 78 16 196/87 H 97 O2 Del Method 02/27/25 15:56 02/27/25 14:45 Room Air 02/27/25 12:03 Room Air Diagnostic Findings Chest X-Ray 02/27/25 12:11 XR chest 1V not portable HISTORY: 84 years-old Female dizzy acute dizziness COMPARISON: 07/28/2023 TECHNIQUE: PA view of the chest FINDINGS: Cardiomediastinal and hilar silhouettes are within normal limits. Atherosclerosis of the aorta. No pneumothorax, pleural effusion or airspace consolidation. Right shoulder arthroplasty. Cholecystectomy. IMPRESSION: No acute process. ACT 112: Negative or not required by law. The above report was generated using voice recognition software. It may contain grammatical, syntax or spelling errors. Electronically signed by: Felix Leavitt M.D. 02/27/2025 2:16 PM KUB X-Ray 02/27/25 15:48 Exam: Single view abdomen. History: Lower abdominal pain. Comparison: None. Findings: Surgical clips right upper abdomen. Vascular calcifications left upper abdomen. Question splenic artery aneurysm measuring 1.5 cm diameter. Lower lumbar spine fusion hardware. Bowel gas pattern is nonobstructive. No gas projects over the included liver. Surgical clip projects over the left pelvis. Suspect migrated cholecystectomy clip. Amorphous densities large bowel distribution consistent with mild stool burden. No discrete mass. Impression: 1. Nonobstructive bowel gas pattern. 2. Likely cholecystectomy changes. 3. Vascular calcifications with findings worrisome for splenic artery aneurysm measuring 1.[address] would be helpful for further characterization. 4. Otherwise no findings to indicate source of patient's symptoms. Electronically signed by Camacho Figueroa 02-27-2025 4:28 PM
[2025-02-27] MEDS: LIDOCAINE 5% 1 PATCH TD SCH (17:01)
[2025-02-27] MEDS ORDERED: CEFEPIME 2 GM VIAL IV SCH (21:00)
[2025-02-27] MEDS ORDERED: NYSTATIN POWDER 15GM BTL EXT PRN (21:15)
[2025-02-27] MEDS ORDERED: PSYLLIUM or GUAR GUM FIBER 4GM PACKET PO PRN (21:28)
[2025-02-27] MEDS: OPTIRAY 320 100ml IV ONE (21:32)
--- OUTSIDE RECORDS SUMMARY | 2025-02-27 21:48 | External Medical Summary | Summary of Care ---
Author Name Unknown Organization [facility] Address [address] [place] [facility] [address] Phone [phone] Care Team Providers Care Senior Peoplesoft Developer Name Role Phone Von Hernandez DO Primary Care Provider [phone] Encounter Details Date Type Department Care Team (Late st Contact Info) Description 02/20/2025 Telephone Family Practice [facility] [place] [address] [place] [address] Von Hernandez DO [address] [place] [address] Allergies Active Allergy Reactions Criticality Noted Date Comments Lisinopril Cough 07/17/2021 Oxycodone 03/26/2020 Severe GI upset, pt feels funny Pollen 03/26/2020 Runny nose documented as of this encounter (statuses as of 02/20/2025) Medications melatonin 0.25 MG TABS Take by mouth at bedtime . gummies - not sure the dose Active polyethylene glycol 3350 (MIRALAX) packet Take 1 Packet by mouth daily. 30 Each 3 0 Active B-12-SL 1000 MCG Sublingual Tablet Sublingual (Cyanocobalamin ) Place under the tongue 1,000 mcg daily . 30 Tablet 11 2 Active Acetaminophen ER 650 MG Oral Tablet Extended Release Take 1 Tablet by mouth every 8 hours as needed. Active Fluticasone Propionate 50 MCG/ACT Nasal Suspension (Flonase)Indica tions:Chronic cough Administer 2 Sprays into each nostril in the morning. 18.2 mL 1 4 Active Rosuvastatin Calcium 20 MG Oral Tablet (Crestor) TAKE 1 TABLET BY MOUTH EVERY MORNING 90 Tablet 4 Active Potassium Citrate ER 10 MEQ (1080 MG) Oral Tablet Extended Release (Urocit-K) TAKE 1 TABLET BY MOUTH IN THE MORNING. 90 Tablet 1 4 Active Cetirizine HCl 10 MG Oral Tablet (ZyrTEC Allergy) As needed Active Famotidine 20 MG Oral Tablet (Pepcid) TAKE 1 TABLET BY MOUTH BEFORE BEDTIME 90 Tablet 2 4 Active Additional Information Patient taking differently: BID (.AM/PM), Reported on 01/20/2025 Escitalopram Oxalate 10 MG Oral Tablet (Lexapro) TAKE 1 TABLET BY MOUTH EVERY DAY IN THE MORNING 90 Tablet 3 4 Active Omeprazole 20 MG Oral Capsule Delayed Release (PriLOSEC) Take 1 Capsule by mouth in the morning. Active Metoprolol Succinate ER 25 MG Oral Tablet Extended Release 24 Hour (toPROL XL)Indications: HTN, goal below 140/90 TAKE 1 TABLET BY MOUTH EVERY DAY IN THE MORNING 90 Tablet 3 4 Active amLODIPine Besylate 5 MG Oral Tablet (Norvasc) TAKE 1/2 TABLET BY MOUTH IN THE MORNING 45 Tablet 3 4 Active Amitriptyline HCl 10 MG Oral Tablet (Elavil)Indicat ions:Primary insomnia,Recurr ent major depressive disorder, in full remission (HCC) Take 1 Tablet by mouth at bedtime. 30 Tablet 5 5 Active Meloxicam 15 MG Oral Tablet (Mobic) Take 1 Tablet by mouth in the morning. 5 Active Nystatin 111369 UNIT/GM External Powder (Nystop)Indicat ions:Candidiasi s, intertrigo Apply topically to affected area 3 times a day. Apply to area underneath both breasts. 60 g 1 5 Active Cefpodoxime Proxetil 100 MG Oral Tablet Take 1 Tablet by mouth in the morning and 1 Tablet before bedtime. 14 Tablet 5 Active documented as of this encounter (statuses as of 02/20/2025) Active Problems Problem Noted Date Diagnosed Date Moderate episode of recurrent major depressive d isorder 04/12/2024 Idiopathic peripheral neuropathy 01/29/2024 Bunion of great toe of left foot 01/16/2024 B12 deficiency 09/12/2022 Hypertensive heart and chron ic kidney disease with heart failure and stage 1 through stage 4 chronic kidney disease, or chronic kidney disease 07/26/2022 Recurrent major depressive disorder, in full rem ission 03/27/2022 HTN, goal below 140/90 05/02/2021 Chronic kidney disease, stage 3a 01/31/2021 Overview: Per CKD protocol Age-related osteoporosis wit h current pathological fracture with routine healing 06/01/2020 Compression fracture of T10 vertebra with routin e healing 02/23/2020 Hyperlipidemia GERD (gastroesophageal reflux disease) Generalized osteoarthritis Kidney stones Hyperparathyroidism Overview (05/11/2020): s/p parathyroid gland removal documented as of this encounter (statuses as of 02/20/2025) Resolved Problems Problem Noted Date Diagnosed Date Resolved Date Coronary artery disease invo lving tangirnaq coronary artery of tangirnaq heart without angina pectoris 01/06/2020 05/02/2021 Osteoporosis 09/17/2023 documented as of this encounter (statuses as of 02/20/2025) Immunizations Name Administration Dates Next Due COVID-19 mRNA, LNP-s, No Pre serve, 2-Dose Series ([employer]) 10/03/2021,01/19/2021,12/29/2020 Pneumococcal Conjugate Vacc, 13 Valent (Prevnar) 09/19/2016 Pneumococcal Polysaccharide PPV23 (Pneumovax) 09/04/2018,08/26/2011 Season Influenza, Quad, PF, Adjuvanted, 65+ Yrs, IM (FLUAD) 09/12/2023,10/16/2021,07/28/2020 Seasonal Influenza Vac., MDV , IM, 0.5 mL (Fluzone) 09/17/2024 Seasonal Influenza, High Dos e, Trivalent, PF, IM (Fluzone HD) 09/08/2022 TDAP (age 10 and older)(Boostrix) 02/02/2020 Zoster Vaccine Recombinant (Shingrix) 09/30/2024 (Deferred: Patient Refused) documented as of this encounter Social History Tobacco Use Types Packs/Day Years Used Date Smoking Tobacco: Former Cigarettes Q uit: 1980 Smokeless Tobacco: Never Alcohol Use Standard Drinks/Week Comments Yes 0 (1 standard drink = 0.6 oz pure alcohol) glass of wine a few nights a week AUDIT-C Answer Date Recorded Frequency of Alcohol Consumption Never 01/06/2020 Average Number of Drinks Not on file 020 Frequency of Binge Drinking Not on file 12/27 PHQ-2 Answer Date Recorded PHQ Adult Total Score 2 09/18/2024 Hunger Vital Sign Answer Date Recorded Within the past 12 months, y ou worried that your food would run out before you got the money to buy more. Patient declined Within the past 12 months, t he food you bought just didn't last and you didn't have money to get more. Patient declined Childcare Answer Date Recorded Do you feel overwhelmed with taking care of a child, family member or friend? No 09/17/2023 Does your family need help f inding childcare? (Household - for ages 0-17 years) Not on file 09/17/2023 Clothing Answer Date Recorded Have you been unable to get clothing when it was really needed? No 09/17/2023 Is your family able to get c lothes or diapers when needed? (Household - for ages 0-17 years) Not on file 09/17/2023 Personal Safety Answer Date Recorded Do you feel unsafe or have concerns for your saf ety? No 09/17/2023 Do you have concerns for you r family's safety? (Household - for ages 0-17 years) Not on file 09/17/2023 Utilities Answer Date Recorded Do you have trouble paying y our heating, water, or electric bill? No 09/17/2023 Is your family able to pay t he heat, water, or electric bill? (Household - for ages 0-17 years) Not on file 09/17/2023 Does your family have access to good internet? (Household - for ages 0-17 years) Not on file 09/17/2023 Employment Status Answer Date Recorded Are you unemployed or without regular income? No 09/17/2023 Does the household have a re gular source of income? (Household - for ages 0-17 years) Not on file 09/17/2023 Social Connections Answer Date Recorded How often do you feel lonely or isolated from th ose around you? Rarely 09/17/2023 Financial Resource Strain Answer Date R ecorded Do you have any trouble payi ng for your medications, or do you think you might in the future? No 09/17/2023 Does your family have troubl e paying for medicine? (Household - for ages 0-17 years) Not on file 09/17/2023 Transportation Needs Answer Date Record ed READ ONLY Do you have troubl e getting a ride to medical visits or work? Never True 09/17/2023 Does your family have a hard time getting a ride to doctors visits? (Household - for ages 0-17 years) Not on file 09/17/2023 Has lack of transportation k ept you from medical appointments, meetings, work, or from getting things needed for daily living? Check all that apply. (Adult - for ages 18 years and over) Not on file 09/17/2023 Do you (or your family) have trouble finding or paying for a ride (transportation)? (Household - for ages 0-17 years) Not on file 09/17/2023 Housing Stability Answer Date Recorded Do you currently live in a s helter or have no steady place to sleep at night? No 09/17/2023 READ ONLY Do you think you a re at risk of becoming homeless? No 09/17/2023 Does your family worry about paying for your home or becoming homeless? (Household - for ages 0-17 years) Not on file 1 Are you homeless or worried that you might be in the future? (Adult - for ages 18 years and over) Not on file Are you (or your family) edna eless or worried that you might be in the future? (Household - for ages 0-17 years) Not on file Food Insecurity Answer Date Recorded Do you need food for this week? No 09/17/2023 Are you able to get enough f ood for your family? (Household - for ages 0-17 years) Not on file 09/17/2023 Does your family need food t his week? (Household - for ages 0-17 years) Not on file 09/17/2023 Do you always have enough fo od for your family? (Household - for ages 0-17 years) Not on file 09/17/2023 Comments No Sex and Gender Information Value Date Recorded Sex Assigned at Female 04/25/2022 2:04 PM EDT Legal Sex Female 4:52 AM EST Gender Identity Female 04/25/2022 2:04 PM EDT Sexual Orientation Straight 04/25/2022 2: 04 PM EDT documented as of this encounter Miscellaneous Notes * Telephone Encounter - Von Hernandez DO - 02/20/2025 4:51 PM EDT There are no other oral options so I went with this and we will need to wait. * Telephone Encounter - Marylu Soto LPN - 02/20/2025 3:34 PM EDT Please advise if you would like an alternative sent in * Telephone Encounter - Molly Sal PHARM Tech - 02/20/2025 3:20 PM EDT [facility] called [facility] Cef[facility]ime Proxetil 100 MG Oral Table and it wont be here until Sunday, pt asking if it is okay to wait that long or can something else be sent in , please advise Thank you, Mloly Sal CPhT Calender Wind Up Tender II [facility] 02/20/2025, 3:21 PM * Telephone Encounter - Marylu Soto LPN - 02/20/2025 1:06 PM EDT Called patient and made aware. Verbalized understanding * Telephone Encounter - Von Hernandez DO - 02/20/2025 12:38 PM EDT Please call Lakshmi - her urin testing came back with a resistant bacteria in it. I sent for an antibiotic to [facility] for her to take documented in this encounter Plan of Treatment Upcoming Encounters Date Type Department Care Team (Late st Contact Info) Description 04/06/2025 12:40 PM EDT Office Visit Family Practice [facility] [place] [address] [place] [address] Von Hernandez DO [address] [facility] [place] [address] 04/16/2025 12:00 PM EDT Office Visit Gastroenterology, [facility] [address] [place] [phone] Sherlyn May CRNP [address] [place] [address] 05/12/2025 11:00 AM EDT Office Visit Rheumatology [facility] [address] [place] [phone] Haris Barrera MD [facility] [place] [address] 09/22/2025 1:00 PM EDT Nurse Only Ancillary [facility] [place] [address] [facility] [place] [address] N[place], Nurse Annual Wellness [address] [facility] [place] [address] Health Maintenance Due Date Last Done Comments Zoster Vaccines (1 of 2) 1991 *BISPHONATE OR OTHER ACCEPTABLE MEDICATION NEEDED FOR OSTEOPOROSIS (REFER TO SMARTSET #1146) 05/09/2024 COVID-19 Vaccine ( season) 2024 10/03/2021, 01/19/2021, 12/29/2020 GFR 10/13/2024 04/12/2024, 2 03/2023, 04/24/2023, Additional history exists Albumin/Creatinine Ratio 04/12/2025 04/12/2024, 08/3 11/2021 CKD PHOS USE SMARTSET 85017 04/12/2025 04/12/2024, 0 07/26/2022 Adult Wellness Visit 09/18/2025 09/18/2024, 09/17/2023, 04/25/2022, Additional history exists Depression Monitoring 09/18/2025 09/18/2024 DXA Scan 10/29/2025 10/29/2023, 12/0 02/2023, 10/26/2021, Additional history exists CKD HGB USE SMARTSET 64026 12/19/202512/19, 04/12/2024, 04/12/2024, Additional history exists DTap/Tdap Vaccines (2 - Td or Tdap) 02/01/2030 02/02/2020 Pneumococcal Vaccine: 50+ Years Completed 09/04/2018, 09/19/2016, 08/26/2011 VITAMIN D LEVEL ONCE IN A LIFETIME-USE SMARTSET# 17269 Completed 04/12/2024, 04/24/2023, 04/25/2022, Additional history exists Influenza Vaccine (FLU shot) Completed , 09/12/2023, 09/12/2023, Additional history exists HPV (Gardasil) Vaccine Aged Out No lo nger eligible based on patient's age to complete this topic Hepatitis B Vaccine Aged Out No longe r eligible based on patient's age to complete this topic MENINGOCOCCAL (MENACTRA/MENVEO) Aged Out No longer eligible based on patient's age to complete this topic Meningitis B Vaccine (Bexsero/Trumemba) Aged Out No longer eligible based on patient's age to complete this topic documented as of this encounter Medical Devices Not on filedocumented as of this encounter Care Teams Senior Peoplesoft Developer Relationship Specialty Start Date End Date Von Hernandez DO [address] [place] [address] PCP - General Family Medicine 02/02/20 documented as of this encounter
--- OUTSIDE RECORDS SUMMARY | 2025-02-27 21:49 | External Medical Summary | Summary of Care ---
Author Name Unknown Organization [facility] Address [address] [facility] [place] [address] Phone [phone] Care Team Providers Care R And D Lab Technician Name Role Phone Von Hernandez DO Primary Care Provider [phone] Encounter Details Date Type Department Care Team (Late st Contact Info) Description 02/20/2025 Telephone Family Practice [facility] [place] [address] [place] [address] Von Hernandez DO [address] [place] [address] Allergies Active Allergy Reactions Criticality Noted Date [...] mouth in the morning. 5 Active Nystatin 698986 UNIT/GM External Powder (Nystop)Indicat ions:Candidiasi s, intertrigo [...] Resolved Date Coronary artery disease invo lving [place] coronary artery of [place] heart without angina pectoris 01/06/2020 05/02/2021 Osteoporosis 09/17/2023 documented as of this encounter (statuses as of 02/20/2025) Immunizations Name Administration Dates Next Due COVID-19 mRNA, LNP-s, No Pre serve, 2-Dose Series ([employer]) 10/03/2021,01/19/2021,12/29/2020 Pneumococcal Conjugate Vacc, 13 Valent (Prevnar) [...] sent in , please advise Thank you, Molly Sal CPhT Manager Rn Case II [facility] 02/20/2025, 3:21 PM * Telephone Encounter - Marylu Soto LPN - 02/20/2025 1:06 PM EDT Called patient and made aware. Verbalized understanding * Telephone Encounter - Von Hernandez DO - 02/20/2025 12:38 PM EDT Please call Lakshmi - her urin testing came back with a resistant bacteria in it. I sent for an antibiotic to [facility] for her to take documented in this encounter Plan of Treatment Upcoming Encounters Date Type Department Care Team (Late st Contact Info) Description 04/06/2025 12:40 PM EDT Office Visit Family Practice [facility] [place] [address] [place] [address] Von [facility] DO [address] [facility] [place] [address] 04/16/2025 12:00 PM EDT Office Visit Gastroenterology, [facility] [address] [place] [phone] Sherlyn May CRNP [address] [place] [address] 05/12/2025 11:00 AM EDT Office Visit Rheumatology [facility] [address] [place] [phone] Haris Barrera MD [facility] [place] [address] 09/22/2025 1:00 PM EDT Nurse Only Ancillary [facility] [place] [address] [facility] [place] [address] Nia, Nurse Annual Wellness [address] [facility] [place] [address] Health Maintenance Due Date Last Done Comments Zoster Vaccines (1 of 2) 1991 *BISPHONATE OR OTHER ACCEPTABLE MEDICATION NEEDED FOR OSTEOPOROSIS (REFER TO SMARTSET #1146) 05/09/2024 COVID-19 Vaccine ( season) 2024 10/03/2021, 01/19/2021, 12/29/2020 GFR 10/13/2024 04/12/2024, 2 03/2023, 04/24/2023, Additional history exists Albumin/Creatinine Ratio 04/12/2025 04/12/2024, 08/3 11/2021 CKD PHOS USE SMARTSET 13896 04/12/2025 04/12/2024, 0 07/26/2022 Adult Wellness Visit 09/18/2025 09/18/2024, 09/17/2023, 04/25/2022, Additional history exists Depression Monitoring 09/18/2025 09/18/2024 DXA Scan 10/29/2025 10/29/2023, 12/0 02/2023, 10/26/2021, Additional history exists CKD HGB USE SMARTSET 79326 12/19/202512/19, 04/12/2024, 04/12/2024, Additional history exists DTap/Tdap Vaccines (2 - Td or Tdap) 02/01/2030 02/02/2020 Pneumococcal Vaccine: 50+ Years Completed 09/04/2018, 09/19/2016, 08/26/2011 VITAMIN D LEVEL ONCE IN A LIFETIME-USE SMARTSET# 87377 Completed 04/12/2024, 04/24/2023, 04/25/2022, Additional history exists [...] filedocumented as of this encounter Care Teams R And D Lab Technician Relationship Specialty Start Date End Date Von Hernandez DO [address] [place] [address] PCP - General Family Medicine 02/02/20 documented as of this encounter
--- OUTSIDE RECORDS SUMMARY | 2025-02-27 21:49 | External Medical Summary ---
Author Name Unknown Address Unknown Organization K01:[facility] [place] [address] [place] [address] Laboratory Report Ordering Provider Test Date Status CAREN MORSEYOLIS 02/13/2025 14:14:43 Final <10,000 colonies/ml mixed no rmal josh Observation Date Value Abnormality Reference (Units ) Status Bacteria identified in Specimen by Culture 02/13/2025 14:14:43 [id number]^PSEUDOMON AERUGINOSA Abnormal Final 10,000 to 100,000 colonies/m L Pseudomonas aeruginosa Performing Location [facility] [place] [address] [place] [address] Ordering Provider Test Date Status CAREN MORSEYOLIS 02/13/2025 14:14:43 Final Observation Date Value Abnormality Reference (Units ) Status Cefepime susceptibility 02/13/2025 14:14:43 4 Susceptible Final Ciprofloxacin 02/13/2025 14:14:43 2 Resistant Final Due to serious side effects, the FDA has advised against using Ciprofloxacin to treat uncomplicated UTIs and respiratory tract infections unless there are no alternative treatment options. Levofloxacin susceptibility 02/13/2025 14:14:43 >=8 Re sistant Final Due to serious side effects, the FDA has advised against using Levofloxacin to treat uncomplicated UTIs and respiratory tract infections unless there are no alternative treatment options. Piperacillin + Tazobactamsusceptibility 02/13/2025 14:14:43 8 Susceptible Final Tobramycinsusceptibility 02/13/2025 14:14:43 <=1 Susce ptible Final Test: Culture, Urine, Quanti tative
Specimen Source: Urine, Clean Catch
Specimen Type: Urine
Specimen Date: 02/13/2025 1414
Result Date: 02/16/2025 0755
Result Status: Final result
Abnormal: Yes
Resulting Lab: LAB[facility]ATORY [facility]
[address]
[place] [address]

CULTURE

10,000 to 100,000 colonies/mL Pseudomonas aeruginosa (Abnormal)

<10,000 colonies/ml mixed normal josh

SUSCEPTIBILITY

Pseudomonas
aeruginosa
METHOD MICROBROTH
DILUTIONS

CEFEPIME 4 Susceptible
CIPROFLOXACIN 2 Resistant
[1]
LEVOFLOXACIN >=8 Resistant
[2]
PIPERACILLIN TAZOBACTAM 8 Susceptible
TOBRAMYCIN <=1 Susceptible

[1] Due to serious side effects, the FDA has advised against using
Ciprofloxacin to treat uncomplicated UTIs and respiratory tract infections
unless there are no alternative treatment options.

[2] Due to serious side effects, the FDA has advised against using
Levofloxacin to treat uncomplicated UTIs and respiratory tract infections
unless there are no alternative treatment options.

null Performing Location [facility] [address] [address] [facility] [address]
--- OUTSIDE RECORDS SUMMARY | 2025-02-27 21:49 | External Medical Summary | Summary of Care ---
Author Name Unknown Organization [facility] Address [address] [facility] [place] [address] Phone [phone] Care Team Providers Care Nuclear Fuel Enrichment Technician Name Role Phone Von Hernandez DO Primary Care Provider [phone] Encounter Details Date Type Department Care Team (Late st Contact Info) Description 02/20/2025 Telephone Family Practice [facility] [place] [address] [place] [address] Von Hernandez DO [address] [place] [address] Allergies Active Allergy Reactions Criticality Noted Date [...] mouth in the morning. 5 Active Nystatin 700225 UNIT/GM External Powder (Nystop)Indicat ions:Candidiasi s, intertrigo [...] Resolved Date Coronary artery disease invo lving rosebud coronary artery of rosebud heart without angina pectoris 01/06/2020 05/02/2021 Osteoporosis 09/17/2023 documented as of this encounter (statuses as of 02/20/2025) Immunizations Name Administration Dates Next Due COVID-19 mRNA, LNP-s, No Pre serve, 2-Dose Series ([employer]) 10/03/2021,01/19/2021,12/29/2020 Pneumococcal Conjugate Vacc, 13 Valent (Prevnar) [...] please advise Thank you, Molly Sal CPhT Serging Machine Operator Automatic II [facility] 02/20/2025, 3:21 PM * Telephone Encounter - Marylu Soto LPN - 02/20/2025 1:06 PM EDT Called patient and made aware. Verbalized understanding * Telephone Encounter - Von Hernandez DO - 02/20/2025 12:38 PM EDT Please call Lkashmi - her urin testing came back with a resistant bacteria in it. I sent for an antibiotic to [facility] for her to take documented in this encounter Plan of Treatment Upcoming Encounters Date Type Department Care Team (Late st Contact Info) Description 04/06/2025 12:40 PM EDT Office Visit Family Practice [facility] [place] [address] [place] [address] Von Hernandez DO 200 [facility] [place] [address] 04/16/2025 12:00 PM EDT Office Visit Gastroenterology, [facility] [address] [place] [phone] Sherlyn May CRNP [address] [place] [address] 05/12/2025 11:00 AM EDT Office Visit Rheumatology [facility] [address] [place] [phone] Haris Barrera MD [facility] [place] [address] 09/22/2025 1:00 PM EDT Nurse Only Ancillary [facility] [place] [address] [facility] [place] [address] [place], Nurse Annual Wellness [address] [facility] [place] [address] Health Maintenance Due Date Last Done Comments Zoster Vaccines (1 of 2) 1991 *BISPHONATE OR OTHER ACCEPTABLE MEDICATION NEEDED FOR OSTEOPOROSIS (REFER TO SMARTSET #1146) 05/09/2024 COVID-19 Vaccine ( season) 2024 10/03/2021, 01/19/2021, 12/29/2020 GFR 10/13/2024 04/12/2024, 2 03/2023, 04/24/2023, Additional history exists Albumin/Creatinine Ratio 04/12/2025 04/12/2024, 08/3 11/2021 CKD PHOS USE SMARTSET 09464 04/12/2025 04/12/2024, 0 07/26/2022 Adult Wellness Visit 09/18/2025 09/18/2024, 09/17/2023, 04/25/2022, Additional history exists Depression Monitoring 09/18/2025 09/18/2024 DXA Scan 10/29/2025 10/29/2023, 12/0 02/2023, 10/26/2021, Additional history exists CKD HGB USE SMARTSET 08940 12/19/202512/19, 04/12/2024, 04/12/2024, Additional history exists DTap/Tdap Vaccines (2 - Td or Tdap) 02/01/2030 02/02/2020 Pneumococcal Vaccine: 50+ Years Completed 09/04/2018, 09/19/2016, 08/26/2011 VITAMIN D LEVEL ONCE IN A LIFETIME-USE SMARTSET# 80769 Completed 04/12/2024, 04/24/2023, 04/25/2022, Additional history exists [...] filedocumented as of this encounter Care Teams Nuclear Fuel Enrichment Technician Relationship Specialty Start Date End Date Von Hernandez DO [address] [place] [address] PCP - General Family Medicine 02/02/20 documented as of this encounter
--- OUTSIDE RECORDS SUMMARY | 2025-02-27 21:49 | External Medical Summary ---
Author Name Unknown Address Unknown Organization K09:[facility] [address] Laboratory Report Ordering Provider Test Date Status KALI MORSE 02/13/2025 14:14:43 Final Observation Date Value Abnormality Reference (Units ) Status Color of Urine by Auto 02/13/2025 14:14:43 Yellow Light Yellow, Yellow, Dark Yellow Final Clarity, Urine 02/13/2025 14:14:43 Slightly Cloudy Abnormal Clear Final Glucose [Mass/volume] in Urine by Automated test strip 02/13/2025 14:14:43 Negative Negative (mg/dL) Final Bilirubin.total [Presence] in Urine by Automated test strip 02/13/2025 14:14:43 Negative Negative Final Ketones [Mass/volume] in Urine by Automated test strip 02/13/2025 14:14:43 Trace Abnormal Negative (mg/dL) Final Specific gravity, Urine 02/13/2025 14:14:43 1.025 1.003-1.030 Final Hemoglobin [Presence] in Urine by Automated test strip 02/13/2025 14:14:43 Moderate Abnormal Negative Final pH, Urine 02/13/2025 14:14:43 5.5 5.0-7.5 (Units) Final Protein [Mass/volume] in Urine by Automated test strip 02/13/2025 14:14:43 30 Abnormal Negative (mg/dL) Final Urobilinogen [Mass/volume] in Urine by Automated test strip 02/13/2025 14:14:43 0.2 0.2, 1.0 (mg/dL) Final Nitrite [Presence] in Urine by Automated test strip 02/13/2025 14:14:43 Positive Abnormal Negative Final Leukocyte esterase [Presence] in Urine by Automated test strip 02/13/2025 14:14:43 Trace Abnormal Negative Final Performing Location [facility] [address]
--- OUTSIDE RECORDS SUMMARY | 2025-02-27 21:49 | External Medical Summary | Summary of Care ---
Author Name Unknown Organization [facility] Address [address] [place] [address] Phone [phone] Care Team Providers Care Mine Surveyor Name Role Phone David Vonoscar Zabala DO Primary Care Provider [phone] Reason for Visit * Reason Comments Acute Encounter Details Date Type Department Care Team (Late st Contact Info) Description 01/20/2025 9:40 AM EST Office Visit Family Practice [facility] [address] [facility] [place] [address] Francie Yarbrough PA-C [address] [facility] [place] [address] Candidiasis, intertrigo*; HTN, goal below 140/90 Allergies Active Allergy Reactions Criticality Noted Date Comments Lisinopril Cough 07/17/2021 Oxycodone 03/26/2020 Severe GI upset, pt feels funny Pollen 03/26/2020 Runny nose documented as of this encounter (statuses as of 01/20/2025) Medications melatonin 0.25 MG TABS Take by [...] mouth in the morning. 5 Active Nystatin 562329 UNIT/GM External Powder (Nystop)Indicat ions:Candidiasi s, intertrigo Apply topically to affected area 3 times a day. Apply to area underneath both breasts. 60 g 1 5 Active zoster vac recomb adjuvanted (SHINGRIX) 50 MCG/0.5ML injectionIndica tions:Need for vaccination for zoster Inject 0.5 mL into a large muscle now and repeat dose in 60 to 180 days 1 Each 1 0 025 Discontin ued(Medic ation List Clean Up) traZODone HCl 50 MG Oral Tablet (Desyrel) Take 1 Tablet by mouth at bedtime. 90 Tablet 3 4 025 Discontin ued(Medic ation List Clean Up) documented as of this encounter (statuses as of 01/20/2025) Active Problems Problem Noted Date Diagnosed Date [...] as of this encounter (statuses as of 01/20/2025) Resolved Problems Problem Noted Date Diagnosed Date Resolved Date Coronary artery disease invo lving [place] coronary artery of [place] heart without angina pectoris 01/06/2020 05/02/2021 Osteoporosis 09/17/2023 documented as of this encounter (statuses as of 01/20/2025) Immunizations Name Administration Dates Next Due COVID-19 mRNA, LNP-s, No Pre serve, 2-Dose Series ([employer]) 10/03/2021,01/19/2021,12/29/2020 Pneumococcal Conjugate Vacc, 13 Valent (Prevnar) [...] PM EDT documented as of this encounter Last Filed Vital Signs Vital Sign Reading Time Taken Comments Blood Pressure 138/80 01/20/2025 10:09 AM EST Pulse 75 01/20/2025 10:09 AM EST Temperature 37.1 °C (98.8 °F) 01/20/2025 10:[address] Respiratory Rate 16 01/20/2025 10:09 AM EST Oxygen Saturation 97% 01/20/2025 10:09 AM EST Inhaled Oxygen Concentration - - Weight 53 kg (116 lb 12 oz) 01/20/2025 10:09 AM EST Height - - Body Mass Index 21.35 12/19/2024 1:20 PM EST documented in this encounter Progress Notes * Francie Yarbrough PA-C - 01/20/2025 10:23 AM EST Images from the original note were not included. History of Present Illness Lakshmi Mathews is a 84 year old female that presents for Acute Patient is a 84 year old female who presents with a rash under her breasts which started this weekend. Started on left. No pain, bleeding, some itching and wetness. Tried powder. Physical Exam Vitals: 01/20/25 1009 Temp: 98.8 °F (37.1 °C) Pulse: 75 Resp: 16 SpO2: 97% BP: 138/80 BP Readings from Last 3 Encounters: 01/20/25 138/80 12/19/24 142/80 10/24/24 124/74 Wt Readings from Last 3 Encounters: 01/20/25 116 lb 12 oz (53 kg) 12/19/24 127 lb (57.6 kg) 09/18/24 133 lb (60.3 kg) General: alert, healthy, no distress, well nourished, well developed, comfortable, and cooperative Head: Normocephalic, No masses, lesions, tenderness or abnormalities Eye Exam: PERRLA, extraocular movements intact, conjunctiva are pink and non- injected, sclera clear Lungs: chest symmetric with normal AP diameter, no chest deformities noted, normal respiratory rateand rhythm, diaphragmatic excursion normal Skin: skin color, texture, turgor are normal, areas erythematous macular rash with satellite lesions noted under both breasts. I have reviewed the following results: None Assessment and Plan Candidiasis, intertrigo (Primary) - Nystatin 565509 UNIT/GM External Powder (Nystop); Apply topically to affected area 3 times a day.Apply to area underneath both breasts. HTN, goal below 140/90 Wrap-Up Time: I spent a total of 20-29 minutes (exact time 23 mins) on the date of service in preparation, delivery, and documentation of the care provided to Lakshmi Mathews excluding any time spent in the performance of separately billed services. documented in this encounter Nursing Notes * Rosa Russell NA - 01/20/2025 10:04 AM EST Lakshmi Mathews presents with complaints of rashes underneath both breasts starting today. Reportsit started underneath her left breast over the weekend but today she realized it is both. Notes pruritus and some discharge Sunday night. Denies pain or odors. documented in this encounter Plan of Treatment Upcoming Encounters Date Type Department Care Team (Late st Contact Info) Description 04/06/2025 12:40 PM EDT [facility] [address] [place] [address] Von Hernandez, DO [address] [place] [address] 04/16/2025 12:00 PM EDT Office Visit Gastroenterology, [facility] [address] [place] [address] Sherlyn May CRNP [address] [place] [address] 05/12/2025 11:00 AM EDT Office Visit Rheumatology [facility] [address] [place] [phone] Haris Barrera MD [address] [facility] [place] [address] 09/22/2025 1:00 PM EDT Nurse Only Ancillary Scenery [place] [address] [place] [address] Nia, Nurse Annual Wellness Scenery [address] [facility] [place] [address] Health Maintenance Due Date Last Done Comments Zoster Vaccines (1 of 2) 1991 *BISPHONATE OR OTHER ACCEPTABLE MEDICATION NEEDED FOR OSTEOPOROSIS (REFER TO SMARTSET #1146) 05/09/2024 COVID-19 Vaccine ( season) 2024 10/03/2021, 01/19/2021, 12/29/2020 GFR 10/13/2024 04/12/2024, 07/28, 04/24/2023, Additional history exists Albumin/Creatinine Ratio 04/12/2025 04/12/2024, 06/28 CKD PHOS USE SMARTSET 04120 04/12/2025 04/12/2024, 0 07/26/2022 Adult Wellness Visit 09/18/2025 09/18/2024, 09/17/2023, 04/25/2022, Additional history exists Depression Monitoring 09/18/2025 09/18/2024 DXA Scan 10/29/2025 10/29/2023, 12/0 02/2023, 10/26/2021, Additional history exists CKD HGB USE SMARTSET 96874 12/19/202512/19, 04/12/2024, 04/12/2024, Additional history exists DTap/Tdap Vaccines (2 - Td or Tdap) 02/01/2030 02/02/2020 Pneumococcal Vaccine: 50+ Years Completed 09/04/2018, 09/19/2016, 08/26/2011 VITAMIN D LEVEL ONCE IN A LIFETIME-USE SMARTSET# 02898 Completed 04/12/2024, 04/24/2023, 04/25/2022, Additional history exists [...] Not on filedocumented as of this encounter Visit Diagnoses Diagnosis Candidiasis, intertrigo- Primary Candidiasis of skin and nails HTN, goal below 140/90 Unspecified essential hypertension documented in this encounter Care Teams Mine Surveyor Relationship Specialty Start Date End Date Von Hernandez DO [address] [place] [address] PCP - General Family Medicine 02/02/20 documented as of this encounter
--- OUTSIDE RECORDS SUMMARY | 2025-02-27 21:49 | External Medical Summary | Summary of Care ---
Author Name Unknown Organization [facility] Address [address] [place] [facility] [address] Phone [phone] Care Team Providers Care Shaker Screen Operator Name Role Phone Von Hernandez DO Primary Care Provider [phone] Reason for Visit * Reason Onset Date Comments Advice 12/25/2024 Encounter Details Date Type Department Care Team (Late st Contact Info) Description 12/25/2024 Telephone Family Practice [facility] [place] [address] [place] [address] Von Hernandez DO [address] [facility] [address] Advice Allergies Active Allergy Reactions Criticality Noted Date Comments Lisinopril Cough 07/17/2021 Oxycodone 03/26/2020 Severe GI upset, pt feels funny Pollen 03/26/2020 Runny nose documented as of this encounter (statuses as of 01/15/2025) Medications melatonin 0.25 MG TABS Take by mouth at bedtime . gummies - not sure the dose Active zoster vac recomb adjuvanted (SHINGRIX) 50 MCG/0.5ML injectionIndicat ions:Need for vaccination for zoster Inject 0.5 mL into a large muscle now and repeat dose in 60 to 180 days 1 Each 1 0 Active Additional Information Patient not taking.Reported on 12/19/2024 polyethylene glycol 3350 (MIRALAX) packet Take 1 Packet by mouth daily. 30 Each 3 0 Active B-12-SL 1000 MCG Sublingual Tablet Sublingual (Cyanocobalamin) Place under the tongue 1,000 mcg daily . 30 Tablet 11 2 Active Acetaminophen ER 650 MG Oral Tablet Extended Release Take 1 Tablet by mouth every 8 hours as needed. Active Fluticasone Propionate 50 MCG/ACT Nasal Suspension (Flonase)Indicat ions:Chronic cough Administer 2 Sprays into each nostril [...] Patient taking differently: BID (.AM/PM), Reported on 12/19/2024 Escitalopram Oxalate 10 MG Oral Tablet (Lexapro) TAKE 1 TABLET BY MOUTH EVERY DAY IN THE MORNING 90 Tablet 3 4 Active Omeprazole 20 MG Oral Capsule Delayed Release (PriLOSEC) Take 1 Capsule by mouth in the morning. Active traZODone HCl 50 MG Oral Tablet (Desyrel) Take 1 Tablet by mouth at bedtime. 90 Tablet 3 4 Active Additional Information Patient not taking.Reported on 12/19/2024 Metoprolol Succinate ER 25 MG Oral Tablet Extended Release 24 Hour (toPROL XL)Indications:H TN, goal below 140/90 TAKE 1 TABLET BY MOUTH EVERY DAY IN THE MORNING 90 Tablet 3 4 Active amLODIPine Besylate 5 MG Oral Tablet (Norvasc) TAKE 1/2 TABLET BY MOUTH IN THE MORNING 45 Tablet 3 4 Active Amitriptyline HCl 10 MG Oral Tablet (Elavil)Indicati ons:Primary insomnia,Recurre nt major depressive disorder, in full remission (HCC) Take 1 Tablet by mouth at bedtime. 30 Tablet 5 5 Active documented as of this encounter (statuses as of 01/15/2025) Active Problems Problem Noted Date Diagnosed Date [...] as of this encounter (statuses as of 01/15/2025) Resolved Problems Problem Noted Date Diagnosed Date Resolved Date Coronary artery disease invo lving [place] coronary artery of [place] heart without angina pectoris 01/06/2020 05/02/2021 Osteoporosis 09/17/2023 documented as of this encounter (statuses as of 01/15/2025) Immunizations Name Administration Dates Next Due COVID-19 mRNA, LNP-s, No Pre serve, 2-Dose Series ([employer] 10/03/2021,01/19/2021,12/29/2020 Pneumococcal Conjugate Vacc, 13 Valent (Prevnar) [...] Date Smoking Tobacco: Former Cigarettes Q uit: 1981 Smokeless Tobacco: Never Alcohol Use Standard Drinks/Week [...] encounter Miscellaneous Notes * Telephone Encounter - Ariana Chaidez LPN - 01/15/2025 3:57 PM EST Patient calling back: Advised of Von Hernandez DO's message Will stop in next week to for labs. * Telephone Encounter - Nora Friend RN - 01/15/2025 10:54 AM EST Provider to address: Reason for Call: Advice Contact: Telephone Call Contact Type: Advice Provider In-Basket: No Outcome: UTC, left VM for patient to return call. Please transfer to nurse line when call is returned. Face to face time spent with Patient (minutes): 0 Total Time including non face to face (minutes): 10 * Telephone Encounter - Glenys Fuentes LPN - 01/05/2025 3:17 PM EST Attempted to call patient, there was no answer, left voicemail. When patient returns call, ok for ROMI to relay message, please refer to below documentation. If needed, can transfer to dedicated nurse line. * Telephone Encounter - Von Hernandez DO - 01/02/2025 6:17 PM EST Please call Lakshmi to come in for a urine test next week to see if she has a UTI * Telephone Encounter - Von Hernandez DO - 01/02/2025 4:51 PM EST Thank you Glenys! * Telephone Encounter - Glenys Fuentes LPN - 01/02/2025 4:39 PM EST Called and spoke with pt. Pt is only feeling sick in way of constipation States that she has a foul odor with her urine, but this has been going on for months Denies any other signs of infection * Telephone Encounter - Von Hernandez DO - 01/02/2025 4:05 PM EST Please call her and see how she feels. If all she is is anxiuos tell her not to get worried about this. If she feels sick I need to know how. * Telephone Encounter - Glenys Fuentes LPN - 01/02/2025 3:54 PM EST See previous note - pt denies any sign of infection * Telephone Encounter - Nohemy Taveras OSA - 01/02/2025 12:41 PM EST Reason for patient's call: Pt calling requesting to speak to a nurse regarding her test results, noanswer on the DNL. Pt would like a call back rachid. Pt is worried and upset. * Telephone Encounter - Halina Alvarez OSA - 01/02/2025 11:37 AM EST Pt calling back - message was given to pt - pt denies any infection - hold is too long for Dedicated nurse. Please call pt back to discuss Thank you ROMI Fowler * Telephone Encounter - Glenys Fuentes LPN - 01/02/2025 10:59 AM EST Attempted to call patient, there was no answer, left voicemail. When patient returns call, ok for ROMI to relay message, please refer to below documentation. If needed, can transfer to dedicated nurse line. * Telephone Encounter - Von Hernandez DO - 12/25/2024 11:26 PM EST Please call Lakshmi: HEr white blood cell count came back elevated. HAs she had any recent signs f infection lie urinary symptoms, diarrhea or an upper respiratory illness? documented in this encounter Plan of Treatment Upcoming Encounters Date Type Department Care Team (Late st Contact Info) Description 04/06/2025 12:40 PM EDT Office Visit Family Practice [facility] [address] [facility] [place] [address] Von Hernandez DO [address] [facility] [place] [address] 04/16/2025 12:00 PM EDT Office Visit Gastroenterology, [facility] [address] [place] [address] Sherlyn May CRNP [address] [place] [address] 05/12/2025 11:00 AM EDT Office Visit Rheumatology [facility] [address] [place] [phone] Haris Barrera MD [address] [employer] [place], [place] [address] 09/22/2025 1:00 PM EDT Nurse Only Ancillary Scenery Nia [place] [address] [place] [address] Nia, Nurse Annual Wellness Scenery [address] [facility] [place] [address] Scheduled Orders Name Type Priority Associated Diagnoses Orde r Schedule URINALYSIS, REFLEX TO MICROSCOPIC Lab Routine Foul smelling urine Expected: 01/02/2025, Expires: 01/02/2026 CULTURE, URINE, QUANTITATIVE Lab Routine Foul smelling urine Expected: 01/05/2025, Expires: 01/02/2026 Health Maintenance Due Date Last Done Comments Zoster Vaccines (1 of 2) 1991 *BISPHONATE OR OTHER ACCEPTABLE MEDICATION NEEDED FOR OSTEOPOROSIS (REFER TO SMARTSET #1146) 05/09/2024 COVID-19 Vaccine ( season) 2024 10/03/2021, 01/19/2021, 12/29/2020 GFR 10/13/2024 04/12/2024, 07/28, 04/24/2023, Additional history exists Albumin/Creatinine Ratio 04/12/2025 04/12/2024, 0811/2021 CKD PHOS USE SMARTSET 19349 04/12/2025 04/12/2024, 0 07/26/2022 Adult Wellness Visit 09/18/2025 09/18/2024, 09/17/2023, 04/25/2022, Additional history exists Depression Monitoring 09/18/2025 09/18/2024 DXA Scan 10/29/2025 10/29/2023, 12/0 02/2023, 10/26/2021, Additional history exists CKD HGB USE SMARTSET 40654 12/19/202512/19, 04/12/2024, 04/12/2024, Additional history exists DTap/Tdap Vaccines (2 - Td or Tdap) 02/01/2030 02/02/2020 Pneumococcal Vaccine: 50+ Years Completed 09/04/2018, 09/19/2016, 08/26/2011 VITAMIN D LEVEL ONCE IN A LIFETIME-USE SMARTSET# 78832 Completed 04/12/2024, 04/24/2023, 04/25/2022, Additional history exists [...] as of this encounter Visit Diagnoses Diagnosis Foul smelling urine- Primary Other nonspecific finding on examination of urine documented in this encounter Care Teams Shaker Screen Operator Relationship Specialty Start Date End Date Von Hernandez DO [address] [place] [address] PCP - General Family Medicine 02/02/20 documented as of this encounter
--- OUTSIDE RECORDS SUMMARY | 2025-02-27 21:49 | External Medical Summary | Summary of Care ---
Author Name Unknown Organization [facility] Address [address] [place] [address] Phone [phone] Care Team Providers Care Fur Joiner Name Role Phone David Von Vj GILMORE Primary Care Provider [phone] Reason for Visit * Reason Comments Outpatient Testing Encounter Details Date Type Department Care Team (Late st Contact Info) Description 02/13/2025 2:10 PM EDT Laboratory [facility] [place] [address] [place] [phone] [facility] [address] [place] [address] Foul smelling urine Allergies Active Allergy Reactions Criticality Noted Date Comments Lisinopril Cough 07/17/2021 Oxycodone 03/26/2020 Severe GI upset, pt feels funny Pollen 03/26/2020 Runny nose documented as of this encounter (statuses as of 02/13/2025) Medications melatonin 0.25 MG TABS Take by [...] mouth in the morning. 5 Active Nystatin 330815 UNIT/GM External Powder (Nystop)Indicat ions:Candidiasi s, intertrigo Apply topically to affected area 3 times a day. Apply to area underneath both breasts. 60 g 1 5 Active documented as of this encounter (statuses as of 02/13/2025) Active Problems Problem Noted Date Diagnosed Date [...] as of this encounter (statuses as of 02/13/2025) Resolved Problems Problem Noted Date Diagnosed Date Resolved Date Coronary artery disease invo lving [place] coronary artery of [place] heart without angina pectoris 01/06/2020 05/02/2021 Osteoporosis 09/17/2023 documented as of this encounter (statuses as of 02/13/2025) Immunizations Name Administration Dates Next Due COVID-19 mRNA, LNP-s, No Pre serve, 2-Dose Series ([employer]) 10/03/2021,01/19/2021,12/29/2020 Pneumococcal Conjugate Vacc, 13 Valent (Prevnar) [...] PM EDT documented as of this encounter Plan of Treatment Upcoming Encounters Date Type Department Care Team (Late st Contact Info) Description 04/06/2025 12:40 PM EDT Office Visit Family Practice [facility] [address] [facility] [place] [address] Von Hernandez DO [address] [facility] [place] [address] 04/16/2025 12:00 PM EDT Office Visit Gastroenterology, [facility] [address] [place] [phone] Sherlyn May CRNP [address] [place] [address] 05/12/2025 11:00 AM EDT Office Visit Rheumatology [facility] [address] [place] [phone] Haris Barrera MD [facility] [place] [address] 09/22/2025 1:00 PM EDT Nurse Only Ancillary [facility] [address] [facility] [address] [place] [address] Nia, Nurse Annual Wellness [address] [facility] [place] [address] Pending Results Name Type Priority Associated Diagnoses Date /Time CULTURE, URINE, QUANTITATIVE Lab Routine Foul smelling urine 02/13/2025 2:14 PM EDT Health Maintenance Due Date Last Done Comments Zoster Vaccines (1 of 2) 1991 *BISPHONATE OR OTHER ACCEPTABLE MEDICATION NEEDED FOR OSTEOPOROSIS (REFER TO SMARTSET #1146) 05/09/2024 COVID-19 Vaccine ( season) 2024 10/03/2021, 01/19/2021, 12/29/2020 GFR 10/13/2024 04/12/2024, 07/28, 04/24/2023, Additional history exists Albumin/Creatinine Ratio 04/12/2025 04/12/2024, 06/28 CKD PHOS USE SMARTSET 27939 04/12/2025 04/12/2024, 0 07/26/2022 Adult Wellness Visit 09/18/2025 09/18/2024, 09/17/2023, 04/25/2022, Additional history exists Depression Monitoring 09/18/2025 09/18/2024 DXA Scan 10/29/2025 10/29/2023, 02/2023, 10/26/2021, Additional history exists CKD HGB USE SMARTSET 57733 12/19/202512/19, 04/12/2024, 04/12/2024, Additional history exists DTap/Tdap Vaccines (2 - Td or Tdap) 02/01/2030 02/02/2020 Pneumococcal Vaccine: 50+ Years Completed 09/04/2018, 09/19/2016, 08/26/2011 VITAMIN D LEVEL ONCE IN A LIFETIME-USE SMARTSET# [id number] Completed 04/12/2024, 04/24/2023, 04/25/2022, Additional history exists [...] Not on filedocumented as of this encounter Procedures Procedure Name Priority Date/Time Associated Diagnosis Comments MICROSCOPIC EXAM, URINE Routine 02/13/2025 2:14 PM EDT Foul smelling urine URINALYSIS, REFLEX TO MICROSCOPIC Routine 02/13/2025 2:14 PM EDT Foul smelling urine documented in this encounter Results * (ABNORMAL) MICROSCOPIC EXAM, URINE (02/13/2025 2:14 PM EDT) RBC, Urine 30-49(A) 0 - 2 /HPF 02/13/2025 3:11 PM EDT [facility] 56 WBC, Urine 10-19(A) 0 - 2 /HPF 02/13/2025 3:11 PM EDT [facility] 56 Bacteria, Urine 26-50(A) 0 - 25 /HPF 02/13/2025 3:11 PM EDT [facility] 56 Urine Urine specimen obtained by clean catch procedure / Unknown Non-blood Collection / Unknown 02/13/2025 2:14 PM EDT 02/13/2025 2:14 PM EDT Von Hernandez LAB URINE ORDERABLES Final Result [facility] [address] [place] [address] * (ABNORMAL) URINALYSIS, REFLEX TO MICROSCOPIC (02/13/2025 2:14 PM EDT) Color, Urine Yellow Light Yellow, Yellow, Dark Yellow 02/13/2025 3:11 PM EDT [facility] 56 Clarity, Urine Slightly Cloudy(A) Clear 02/13/2025 3:11 PM EDT [facility] 56 Glucose, Urine Negative Negative mg/dL 02/13/2025 3:11 PM EDT [facility] 56 Bilirubin, Urine Negative Negative 02/13/2025 3:11 PM EDT [facility] 56 Ketone, Urine Trace(A) Negative mg/dL 02/13/2025 3:11 PM EDT [facility] 56 Specific Enterprise, Urine 1.025 1.003 - 1.030 02/13/2025 3:11 PM EDT [facility] 56 Blood, Urine Moderate(A) Negative 02/13/2025 3:11 PM EDT [facility] pH, Urine 5.5 5.0 - 7.5 Units 02/13/2025 3:11 PM EDT [facility] Protein, Urine 30(A) Negative mg/dL 02/13/2025 3:11 PM EDT [facility] Urobilinogen, Urine 0.2 0.2, 1.0 mg/dL 02/13/2025 3:11 PM EDT [facility] Nitrite, Urine Positive(A) Negative 02/13/2025 3:11 PM EDT [facility] Esterase, Urine Trace(A) Negative 02/13/2025 3:11 PM EDT [facility] Urine Urine specimen obtained by clean catch procedure / Unknown Non-blood Collection / Unknown 02/13/2025 2:14 PM EDT 02/13/2025 2:14 PM EDT Von Hernandez DO LAB URINE ORDERABLES Final Result [facility] [address] documented in this encounter Visit Diagnoses Diagnosis Foul smelling urine Other nonspecific finding on examination of urine documented in this encounter Care Teams Fur Joiner Relationship Specialty Start Date End Date Von [facility] [address] [facility] [address] PCP - General Family Medicine 02/02/20 documented as of this encounter
--- OUTSIDE RECORDS SUMMARY | 2025-02-27 21:49 | External Medical Summary | Summary of Care ---
Author Name Unknown Organization [facility] Address [address] [facility] [address] Phone [phone] Care Team Providers Care Pool Table Operator Name Role Phone Von Hernandez DO Primary Care Provider [phone] Encounter Details Date Type Department Care Team (Late st Contact Info) Description 02/20/2025 Telephone Family Practice [facility] [place] [address] [place] [address] Von Hernandez DO [address] [place] [address] Allergies Active Allergy Reactions Criticality Noted Date [...] mouth in the morning. 5 Active Nystatin 782032 UNIT/GM External Powder (Nystop)Indicat ions:Candidiasi s, intertrigo [...] Resolved Date Coronary artery disease invo lving [place] coronary artery of [place] heart without angina pectoris 01/06/2020 05/02/2021 Osteoporosis 09/17/2023 documented as of this encounter (statuses as of 02/20/2025) Immunizations Name Administration Dates Next Due COVID-19 mRNA, LNP-s, No Pre serve, 2-Dose Series ([employer]) 10/03/2021,01/19/2021,12/29/2020 Pneumococcal Conjugate Vacc, 13 Valent (Prevnar) [...] please advise Thank you, Molly Sal CPhT It Compliance Analyst II [facility] 02/20/2025, 3:21 PM * Telephone Encounter - Marylu Soto LPN - 02/20/2025 1:06 PM EDT Called patient and made aware. Verbalized understanding * Telephone Encounter - Von Hernandez DO - 02/20/2025 12:38 PM EDT Please call Lakshmi - her urin testing came back with a resistant bacteria in it. I sent for an antibiotic to [facility] for her to take documented in this encounter Plan of Treatment Upcoming Encounters Date Type Department Care Team (Late st Contact Info) Description 04/06/2025 12:40 PM EDT Office Visit Family Practice [facility] [place] [address] [place] [address] Von Hernandez DO [facility] [place] [address] 04/16/2025 12:00 PM EDT Office Visit Gastroenterology, [facility] [address] [place] [phone] Sherlyn May CRNP [address] [place] [address] 05/12/2025 11:00 AM EDT Office Visit Rheumatology [facility] [address] [place] [phone] Haris Barrera MD [facility] [place] [address] 09/22/2025 1:00 PM EDT Nurse Only Ancillary [facility] [place] [address] [facility] [place] [address] Nia, Nurse Annual Wellness [address] [facility] [place] [address] Health Maintenance Due Date Last Done Comments Zoster Vaccines (1 of 2) 1991 *BISPHONATE OR OTHER ACCEPTABLE MEDICATION NEEDED FOR OSTEOPOROSIS (REFER TO SMARTSET #1146) 05/09/2024 COVID-19 Vaccine ( season) 2024 10/03/2021, 01/19/2021, 12/29/2020 GFR 10/13/2024 04/12/2024, 2 03/2023, 04/24/2023, Additional history exists Albumin/Creatinine Ratio 04/12/2025 04/12/2024, 08/3 11/2021 CKD PHOS USE SMARTSET 24798 04/12/2025 04/12/2024, 0 07/26/2022 Adult Wellness Visit 09/18/2025 09/18/2024, 09/17/2023, 04/25/2022, Additional history exists Depression Monitoring 09/18/2025 09/18/2024 DXA Scan 10/29/2025 10/29/2023, 12/0 02/2023, 10/26/2021, Additional history exists CKD HGB USE SMARTSET 50966 12/19/202512/19, 04/12/2024, 04/12/2024, Additional history exists DTap/Tdap Vaccines (2 - Td or Tdap) 02/01/2030 02/02/2020 Pneumococcal Vaccine: 50+ Years Completed 09/04/2018, 09/19/2016, 08/26/2011 VITAMIN D LEVEL ONCE IN A LIFETIME-USE SMARTSET# [id number] Completed 04/12/2024, 04/24/2023, 04/25/2022, Additional history exists [...] filedocumented as of this encounter Care Teams Pool Table Operator Relationship Specialty Start Date End Date Von Hernandez DO [address] [place] [address] PCP - General Family Medicine 02/02/20 documented as of this encounter
--- OUTSIDE RECORDS SUMMARY | 2025-02-27 21:49 | External Medical Summary ---
Author Name Unknown Address Unknown Organization K[facility] [place] [id number] Laboratory Report Ordering Provider Test Date Status AUBREY MORSEJordan 02/13/2025 14:14:43 Final Observation Date Value Abnormality Reference (Units ) Status RBC, Urine 02/13/2025 14:14:43 30-49 Abnormal 0-2 (/HPF) Final WBC, Urine 02/13/2025 14:14:43 10-19 Abnormal 0-2 (/HPF) Final Bacteria [#/area] in Urine sediment by Microscopy high power field 02/13/2025 14:14:43 26-50 Abnormal 0-25 (/HPF) Final Performing Location [facility] [place] [address]
[2025-02-27] MEDS: FAMOTIDINE 20 MG TAB PO SCH (22:28)
[2025-02-27] MEDS: AMITRIPTYLINE HCL 10 MG TAB PO SCH (22:29)
[2025-02-27] MEDS: METOPROLOL SUCC 25MG EXT REL TAB PO STA (22:29)
--- NOTE | 2025-02-27 22:53 | CT Scan Report ---
Exam(s): CT ABDOMEN + PELVIS With Contrast IV Amt: 93 ml optiray 320 EXAM: CT Abdomen and Pelvis With Intravenous Contrast CLINICAL HISTORY: abd pain, N/V. TECHNIQUE: Axial computed tomography images of the abdomen and pelvis with intravenous contrast. CTDI is 24.21 mGy and DLP is 1035.8 mGy-cm. Automated exposure control was utilized for the study. A dose lowering technique was utilized adhering to the principles of ALARA. CONTRAST: Patient received 93 ml optiray 320 of IV contrast COMPARISON: No relevant prior studies available. FINDINGS: Lung bases: Unremarkable. No mass. No consolidation. ABDOMEN: Liver: Unremarkable. No mass. Gallbladder and bile ducts: Cholecystectomy. No ductal dilation. Pancreas: Unremarkable. No mass. No ductal dilation. Spleen: Unremarkable. No splenomegaly. Adrenals: Unremarkable. No mass. Kidneys and ureters: 5 x 8 mm proximal right ureteral stone approximately 1 cm beyond the UPJ with mild right hydronephrosis. No pyelonephritis noted bilaterally. No left-sided obstructive stones. Stomach and bowel: Stomach is mildly distended with retained fluid and oral contents. No gastric mucosal thickening. No focal high-grade bowel obstruction. Scattered nonspecific gas distended small bowel loops in the abdomen. No dilation. Mild stool burden. Scattered diverticulosis of the descending and sigmoid colon without definitive diverticulitis. PELVIS: Appendix: A normal retrocecal appendix is noted. Bladder: Unremarkable. No mass. Reproductive: Status post hysterectomy. ABDOMEN and PELVIS: Intraperitoneal space: Unremarkable. No free air. No significant fluid collection. Bones/joints: Posterior fusion at L4-5 level. Grade 1 anterolisthesis of L3 on L4 and L5 on S1. No acute fracture. No dislocation. Soft tissues: Unremarkable. 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 No acute prevascular abnormality identified. No abdominal aortic aneurysm. Lymph nodes: Unremarkable. No enlarged lymph nodes. IMPRESSION: 1. 5 x 8 mm proximal right ureteral stone approximately 1 cm beyond the UPJ with mild right hydronephrosis. 2. No focal high-grade bowel obstruction. Scattered nonspecific gas distended small bowel loops in the abdomen. Suspect normal variation. No dilation. Mild stool burden. Scattered diverticulosis of the descending and sigmoid colon without definitive diverticulitis. No free intraperitoneal fluid or pneumoperitoneum. Electronically signed by: James Lozada MD 02/27/25 22:52 PM
[2025-02-27] MEDS: MELATONIN 3 MG TAB PO PRN (23:33)
[2025-02-28 00:07] LABS: Hematocrit (blood only) 33.6 % (37.0-47.0); Hemoglobin 11.3 g/dl (12.0-16.0)
[2025-02-28] MEDS: CEFEPIME 2000MG 2,000 MG/20 ML SYR IV SCH (06:35)
[2025-02-28 07:04] LABS: Appearance Urine Clear (Clear); Bacteria Urine Automated None Seen (None Seen); Bilirubin Urine Negative (Negative); Blood Urine 2+ (Negative); Cast Urine Automated 0-2 /lpf (0-2); Color Urine Yellow; Epithelial Cell Urine Auto 0-2 /hpf (0-2); Glucose Urine UA Negative (Negative); Ketones Urine Trace (Negative); Leukocyte Esterase Urine Trace (Negative); Nitrite Urine Positive (Negative); Protein Urine 1+ (Negative); Specific Gravity Urine > 1.045 (1.000-1.030); Urobilinogen Urine Negative (Negative); WBC Urine Automated >50 /hpf (0-5); pH Urine 5.5 (4.5-7.5)
[2025-02-28 07:48] LABS: Basophils # (auto) 0.05 K/uL (0.00-0.20); Basophils % (auto) 0.7 %; Eosinophils # (auto) 0.27 K/uL (0.00-0.50); Eosinophils % (auto) 3.7 %; Hemoglobin 11.1 g/dl (12.0-16.0); Immature Granulocytes # (auto) 0.06 K/uL (0.01-0.20); Immature Granulocytes % (auto) 0.8 %; Lymphocytes # (auto) 1.61 K/uL (1.20-3.40); Mean Corpuscular Hemoglobin 31.9 pg (25.0-34.0); Mean Corpuscular Hgb Conc 33.6 g/dL (32.0-36.0); Mean Corpuscular Volume 94.8 fL (80.0-100.0); Mean Platelet Volume 9.4 fL (9.4-12.4); Monocytes % (auto) 6.8 %; Neutrophils # (auto) 4.83 K/uL (1.40-6.50); Platelet Count 269 K/uL (130-400); RDW Coefficient of Variation 12.8 % (11.5-14.5); Red Blood Count 3.48 M/uL (4.20-5.40); White Blood Count 7.32 K/ul (4.8-10.8)
[2025-02-28 08:03] LABS: Albumin Globulin Ratio 1.6 (0.9-2); Albumin Level 3.5 gm/dl (3.4-5.0); BUN Creatinine Ratio 22.1 (10-20); Bilirubin,Total 0.5 mg/dl (0.2-1.0); Calcium 9.7 mg/dl (8.6-10.3); Creatinine Clr Calc Pharmacy 40.8 ml/min; Globulin 2.2 gm/dl (2.5-4.0); Potassium 4.2 mmol/L (3.5-5.1); Total Protein 5.7 gm/dl (6.0-8.3)
[2025-02-28] MEDS: ACETAMINOPHEN 325 MG TAB PO PRN (08:27)
[2025-02-28] MEDS: CYANOCOBALAMIN (B-12) 500 MCG TABLET PO SCH (08:29)
[2025-02-28] MEDS: ROSUVASTATIN CALCIUM 20 MG TAB PO SCH (08:29)
[2025-02-28] MEDS: CETIRIZINE HCL 10 MG TABLET PO SCH (08:29)
[2025-02-28] MEDS: METOPROLOL SUCC 25MG EXT REL TAB PO SCH (08:29)
[2025-02-28] MEDS: amLODIPine BESYLATE 5 MG TAB PO SCH (08:29)
[2025-02-28] MEDS: POTASSIUM CITRATE 10 MEQ TAB PO SCH (08:29)
[2025-02-28] MEDS: ESCITALOPRAM OXALATE 10 MG TAB PO SCH (08:30)
[2025-02-28] MEDS: FLUTICASONE PROPIONATE NA SPR 16 GM BTL SCH (08:30)
[2025-02-28] MEDS: ADVANCED PROBIOTIC 625 MG CAPSULE PO SCH (08:39)
[2025-02-28] MEDS: PANTOprazole 40 MG/10 ML SYR IV SCH (08:40)
--- NOTE | 2025-02-28 08:49 | Gastrointestinal Consultation ---
Date of Consultation February 28, 2025 Assessment & Plan (1) Heme positive stool: Heme positive stool with a history of melena weight loss and epigastric tenderness. In addition she has a past history of peptic ulcer disease. Need to consider upper GI pathologies such as recurrent peptic ulcer disease, slime plasm, gastritis. Recommend proceeding with an upper endoscopy timing based on need for urologic management of her kidney stone and UTI. For now she can have a solid food diet as per hospitalist. Will reassess her in the morning. Can empirically start proton pump inhibitor orally twice daily (2) Kidney stone: History of Present Illness Reason for Consultation: History of melena and Hemoccult positive stool Attending Physician: Darren Ritchie MD History of Present Illness Patient admitted to the hospital for treatment of a urinary tract infection. She states that since October she has had black bowel movements. She has a longstanding history of constipation and has bowel movements irregularly. He has not noted any recent change in her bowel habits. Over the last 1 to 2 years she has lost about 40 pounds and has had a decreased appetite. Denies any significant abdominal pain. Since starting antibiotics for urinary tract infections she has had some nausea and some vomiting but denies hematemesis or bright red blood. She has a past history of peptic ulcer disease and has had her gallbladder removed. She has had a past colonoscopy as well. He denies any history of liver disease. In the emergency room a stool Hemoccult was positive. External hemorrhoids but no evidence of melena or bright red blood. Allergies Allergy/AdvReac Type Severity Reaction Status Date / Time pollen extracts Allergy Mild RUNNY NOSE Verified 02/27/25 16:48 Penicillins Allergy Unknown HAPPENED A Verified 02/27/25 16:44 LONG TIME AGO. lisinopril AdvReac Intermediate Cough Verified 02/27/25 16:48 oxycodone AdvReac Intermediate nausea, Verified 02/27/25 16:44 constipation, "didn't feel right" Home Medications Medication Instructions Recorded Confirmed Type metoprolol succinate 25 mg 25 mg PO QAM 02/23/20 02/27/25 History tablet,extended release 24 hr (Toprol XL) rosuvastatin 20 mg tablet (Crestor) 20 mg PO QAM 02/23/20 02/27/25 History psyllium husk 0.4 gram capsule 0.4 g PO DAILY PRN Constipation 09/27/20 02/27/25 History (Metamucil) acetaminophen 650 mg 650 mg PO TID PRN Pain 11/02/20 02/27/25 History tablet,extended release amlodipine 5 mg tablet 2.5 mg PO QAM 07/02/23 02/27/25 History escitalopram oxalate 10 mg tablet 10 mg PO QAM 07/02/23 02/27/25 History tramadol 50 mg tablet 50 mg PO Q6H PRN pain #30 tabs 10/16/24 02/27/25 Rx meloxicam 15 mg tablet 15 mg PO DAILY #30 tabs 01/13/25 02/27/25 Rx amitriptyline 10 mg tablet 10 mg PO HS 02/27/25 02/27/25 History cefpodoxime 100 mg tablet 100 mg PO BID 02/27/25 02/27/25 History cetirizine 10 mg tablet (Zyrtec) 10 mg PO DAILY 02/27/25 02/27/25 History cyanocobalamin (vitamin B-12) 1,000 mcg sublingual DAILY 02/27/25 02/27/25 History 1,000 mcg sublingual tablet famotidine 20 mg tablet 20 mg PO BID 02/27/25 02/27/25 History fluticasone propionate 50 2 spray intranasal DAILY 02/27/25 02/27/25 History mcg/actuation nasal spray,suspension melatonin 10 mg chewable tablet 20 mg PO HS 02/27/25 02/27/25 History nystatin 100,000 unit/gram topical 1 applic topical TID PRN UNDER 02/27/25 02/27/25 History powder (Klayesta) BREASTS NEEDED omeprazole 20 mg tablet,delayed 20 mg PO DAILY 02/27/25 02/27/25 History release polyethylene glycol 3350 17 17 g PO DAILY PRN Constipation 02/27/25 02/27/25 History gram/dose oral powder (Miralax) potassium citrate 10 mEq (1,080 10 meq PO QAM 02/27/25 02/27/25 History mg) tablet,extended release Patient History Medical History Herniated intervertebral disc of lumbar spine Fracture of left ankle, lateral malleolus mechanical fall 07/2016 resulting in left ankle/foot and right shoulder injuries, non-displaced left lateral malleous fracture per 08/01/20 x-ray- ortho monitoring/recommend boot x 3-4 weeks/no surgical intervention planned at this time History of kidney stones Osteoarthritis Chronic kidney disease stage III GERD (gastroesophageal reflux disease) + breakthrough symptoms History of melanoma right calf and foot Macular degeneration Anxiety and depression Tremor of both hands occasional Surgical History History of lumbar laminectomy L4 -L5 History of cardiac cath 2017- no stents (attempts to obtain official report unsuccesful) History of cataract surgery Left cataract extraction with IOL: 07/13/20: MAC sedation at [facility] [place] Right cataract extraction with IOL: 06/29/20: MAc sedation at [facility] [place] History of repair of rotator cuff RT History of lithotripsy MULTIPLE History of cystoscopy MULTIPLE History of esophagogastroduodenoscopy (EGD) History of colonoscopy H/O total hysterectomy History of tonsillectomy Family History Other No significant family history Social History Smoking Status: Former smoker Tobacco Type: Cigarettes Cigarettes Per Day: 2-4 Cigarettes a day.; Second Hand Exposure: No; Do You Dip or Chew Tobacco: No; Hx Alcohol Use: Yes Alcohol type: wine Hx Substance Use: No Preferred Language: Citizen Of [place] Communication Ability: Effective Client Finance Analyst Required: No Beliefs That Will Affect Care: None marital status: / Current Living Situation: Alone Feels Safe at Home: Yes Assistive Devices: Glasses, Hospital Bed and Walker Review of Systems Review of Systems: No fever No chills No SOB No CP No Abd pain History of nausea and vomiting Unintentional weight loss Physical Exam Physical Exam: Eyes; anicteric HENT No masses Chest clear to A Cor S1, S2 physiologic Abd: softer mild epigastric tenderness no masses Ext no edema Results & Data Vital Signs (Past 12 Hours) Vital Signs Temp Pulse Resp BP Pulse Ox O2 Del Method 02/28/25 08:21 36.6 C 59 L 18 198/81 H 95 Room Air 02/27/25 22:45 Room Air 02/27/25 22:45 Room Air 02/27/25 22:45 36.6 C 65 16 184/76 H 96 Room Air 02/27/25 22:30 89 18 170/82 H 97 Room Air 02/27/25 21:45 67 18 182/83 H 98 Room Air Laboratory Results Laboratory Results - last 48 hr 02/27/25 02/27/25 02/28/25 12:29 23:39 07:17 WBC 8.53 7.32 RBC 3.95 L 3.48 L Hgb 12.6 11.3 L 11.1 L Hct 37.5 33.6 L 33.0 L MCV 94.9 94.8 MCH 31.9 31.9 MCHC 33.6 33.6 RDW Std Deviation 43.6 44.0 RDW Coeff of Katrin 12.6 12.8 Plt Count 315 269 MPV 9.6 9.4 Immature Gran % (Auto) 0.4 0.8 Neut % (Auto) 74.2 66.0 Lymph % (Auto) 18.3 22.0 Nance % (Auto) 4.5 6.8 Eos % (Auto) 2.0 3.7 Baso % (Auto) 0.6 0.7 Neut # (Auto) 6.34 4.83 Lymph # (Auto) 1.56 1.61 Nance # (Auto) 0.38 0.50 Eos # (Auto) 0.17 0.27 Baso # (Auto) 0.05 0.05 Immature Gran # (Auto) 0.03 0.06 Sodium 140 139 Potassium 4.2 4.2 Chloride 106 109 H Carbon Dioxide 29 29 Anion Gap 5 1 L BUN 16 19 Creatinine 0.82 0.86 Est Cr Clr Drug Dosing Not Reportable 40.8 eGFR 70.93 66.99 BUN/Creatinine Ratio 19.5 22.1 H Glucose 100 H 89 Calcium 10.4 H 9.7 Phosphorus 3.0 Magnesium 2.0 Total Bilirubin 0.6 0.5 AST 20 15 ALT 9 10 Alkaline Phosphatase 60 48 Total Protein 6.8 5.7 L Albumin 4.2 3.5 Globulin 2.6 2.2 L Albumin/Globulin Ratio 1.6 1.6 Lipase 11 Urine Color Urine Appearance Urine pH Ur Specific [place] Urine Protein Urine Glucose (UA) Urine Ketones Urine Blood Urine Nitrite Urine Bilirubin Urine Urobilinogen Ur Leukocyte Esterase Urine WBC (Auto) Urine RBC (Auto) U Hyaline Cast (Auto) U Epithel Cells (Auto) Urine Bacteria (Auto) 02/28/25 Unknown WBC RBC Hgb Hct MCV MCH MCHC RDW Std Deviation RDW Coeff of Katrin Plt Count MPV Immature Gran % (Auto) Neut % (Auto) Lymph % (Auto) Nance % (Auto) Eos % (Auto) Baso % (Auto) Neut # (Auto) Lymph # (Auto) Nance # (Auto) Eos # (Auto) Baso # (Auto) Immature Gran # (Auto) Sodium Potassium Chloride Carbon Dioxide Anion Gap BUN Creatinine Est Cr Clr Drug Dosing eGFR BUN/Creatinine Ratio Glucose Calcium Phosphorus Magnesium Total Bilirubin AST ALT Alkaline Phosphatase Total Protein Albumin Globulin Albumin/Globulin Ratio Lipase Urine Color Yellow Urine Appearance Clear Urine pH 5.5 Ur Specific [place] > 1.045 H Urine Protein 1+ H Urine Glucose (UA) Negative Urine Ketones Trace H Urine Blood 2+ H Urine Nitrite Positive A Urine Bilirubin Negative Urine Urobilinogen Negative Ur Leukocyte Esterase Trace H Urine WBC (Auto) >50 H Urine RBC (Auto) 6-10 H U Hyaline Cast (Auto) 0-2 U Epithel Cells (Auto) 0-2 Urine Bacteria (Auto) None Seen Diagnostic Findings Chest X-Ray 02/27/25 12:11 XR chest 1V not portable HISTORY: 84 years-old Female dizzy acute dizziness COMPARISON: 07/28/2023 TECHNIQUE: PA view of the chest FINDINGS: Cardiomediastinal and hilar silhouettes are within normal limits. Atherosclerosis of the aorta. No pneumothorax, pleural effusion or airspace consolidation. Right shoulder arthroplasty. Cholecystectomy. IMPRESSION: No acute process. ACT 112: Negative or not required by law. The above report was generated using voice recognition software. It may contain grammatical, syntax or spelling errors. Electronically signed by: Felix Leavitt M.D. 02/27/2025 2:16 PM KUB X-Ray 02/27/25 15:48 Exam: Single view abdomen. History: Lower abdominal pain. Comparison: None. Findings: Surgical clips right upper abdomen. Vascular calcifications left upper abdomen. Question splenic artery aneurysm measuring 1.5 cm diameter. Lower lumbar spine fusion hardware. Bowel gas pattern is nonobstructive. No gas projects over the included liver. Surgical clip projects over the left pelvis. Suspect migrated cholecystectomy clip. Amorphous densities large bowel distribution consistent with mild stool burden. No discrete mass. Impression: 1. Nonobstructive bowel gas pattern. 2. Likely cholecystectomy changes. 3. Vascular calcifications with findings worrisome for splenic artery aneurysm measuring 1.[address] would be helpful for further characterization. 4. Otherwise no findings to indicate source of patient's symptoms. Electronically signed by Camacho Figueroa 02-27-2025 4:28 PM Abdomen/Pelvis CT 02/27/25 20:56 Exam(s): CT ABDOMEN + PELVIS With Contrast IV Amt: 93 ml optiray 320 EXAM: CT Abdomen and Pelvis With Intravenous Contrast CLINICAL HISTORY: abd pain, N/V. TECHNIQUE: Axial computed tomography images of the abdomen and pelvis with intravenous contrast. CTDI is 24.21 mGy and DLP is 1035.8 mGy-cm. Automated exposure control was utilized for the study. A dose lowering technique was utilized adhering to the principles of ALARA. CONTRAST: Patient received 93 ml optiray 320 of IV contrast COMPARISON: No relevant prior studies available. FINDINGS: Lung bases: Unremarkable. No mass. No consolidation. ABDOMEN: Liver: Unremarkable. No mass. Gallbladder and bile ducts: Cholecystectomy. No ductal dilation. Pancreas: Unremarkable. No mass. No ductal dilation. Spleen: Unremarkable. No splenomegaly. Adrenals: Unremarkable. No mass. Kidneys and ureters: 5 x 8 mm proximal right ureteral stone approximately 1 cm beyond the UPJ with mild right hydronephrosis. No pyelonephritis noted bilaterally. No left-sided obstructive stones. Stomach and bowel: Stomach is mildly distended with retained fluid and oral contents. No gastric mucosal thickening. No focal high-grade bowel obstruction. Scattered nonspecific gas distended small bowel loops in the abdomen. No dilation. Mild stool burden. Scattered diverticulosis of the descending and sigmoid colon without definitive diverticulitis. PELVIS: Appendix: A normal retrocecal appendix is noted. Bladder: Unremarkable. No mass. Reproductive: Status post hysterectomy. ABDOMEN and PELVIS: Intraperitoneal space: Unremarkable. No free air. No significant fluid collection. Bones/joints: Posterior fusion at L4-5 level. Grade 1 anterolisthesis of L3 on L4 and L5 on S1. No acute fracture. No dislocation. Soft tissues: Unremarkable. 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 No acute prevascular abnormality identified. No abdominal aortic aneurysm. Lymph nodes: Unremarkable. No enlarged lymph nodes. IMPRESSION: 1. 5 x 8 mm proximal right ureteral stone approximately 1 cm beyond the UPJ with mild right hydronephrosis. 2. No focal high-grade bowel obstruction. Scattered nonspecific gas distended small bowel loops in the abdomen. Suspect normal variation. No dilation. Mild stool burden. Scattered diverticulosis of the descending and sigmoid colon without definitive diverticulitis. No free intraperitoneal fluid or pneumoperitoneum. Electronically signed by: James Lozada MD 02/27/25 22:52 PM PG Care Time/CCT Total # of Minutes Spent Total Time Spent with Patient: Total time spent is greater than 50% in coordination of care (as documented) at patient's floor/unit and/or counseling patient: Coding Level of Care Code 43071 INT INP/OBS CARE 3/75MIN Diagnoses Heme positive stool R19.5 Kidney stone N20.0
[2025-02-28] MEDS ORDERED: amLODIPine BESYLATE 5 MG TAB PO SCH (09:00)
[2025-02-28] MEDS ORDERED: MELOXICAM 7.5 MG TAB PO SCH (09:00)
[2025-02-28] MEDS ORDERED: PANTOprazole 40 MG TAB PO SCH (09:00)
--- NOTE | 2025-02-28 11:05 | Urology Consultation ---
Date of Consultation February 28, 2025 Assessment & Plan (1) Kidney stone: (2) Complicated UTI (urinary tract infection): Plan This is an 84-year-old female with right UPJ stone and urinary tract infection. In this setting we discussed the typical recommendation is for cystoscopy, right retrograde pyelogram and right ureteral stent placement to allow maximal drainage of her right kidney. We discussed risks and benefits of surgery including bleeding, infection, injury to nearby structures, need for additional procedures. We explicitly discussed that in the setting of an infection we would not treat the stone. She expressed understanding and would like to proceed, unfortunately she had just finished breakfast at the time of our conversation. Since she is hemodynamically stable and afebrile, we will plan to make her n.p.o. at midnight and proceed with ureteral stent placement on 03/01/2025. If she starts to decompensate/have fevers or signs of developing sepsis, we can revisit sooner. History of Present Illness Reason for Consultation: Right ureteral stone, UTI Attending Physician: Darren Ritchie MD History of Present Illness This is an 84-year-old female who presented to the emergency department on 02/27/2025 with abdominal pain, dark stool, concern for possible UTI. Of note, she had recently had an outpatient urine culture that grew Pseudomonas. She was started on antibiotics but it took her some time to get the prescription. Workup in the ED and hospital was notable for normal WBC (8.53). Creatinine was also within normal limits at 0.82. Glucose was 100. Urinalysis from 02/28/2025 demonstrated 2+ blood, positive nitrites, >50 WBC/hpf. CT scan was performed on 02/27/2025. I independently reviewed these images. Both kidneys are in normal position. There is some thickening of the urothelial lining of the right side. There is a stone at the right UPJ. There are small hypodense areas of bilateral kidneys, likely consistent with cysts. I do not appreciate any stones on the left side. Bladder is grossly normal. Urology was consulted for right ureteral stone in the setting of UTI. At the bedside she reports having left sided abdominal pain/flank pain. She has a history of nephrolithiasis requiring shockwave lithotripsy in the past. She has never had ureteroscopy or stent placement. Allergies Allergy/AdvReac Type Severity Reaction Status Date / Time pollen extracts Allergy Mild RUNNY NOSE Verified 02/27/25 16:48 Penicillins Allergy Unknown HAPPENED A Verified 02/27/25 16:44 LONG TIME AGO. lisinopril AdvReac Intermediate Cough Verified 02/27/25 16:48 oxycodone AdvReac Intermediate nausea, Verified 02/27/25 16:44 constipation, "didn't feel right" Home Medications Medication Instructions Recorded Confirmed Type metoprolol succinate 25 mg 25 mg PO QAM 02/23/20 02/27/25 History tablet,extended release 24 hr (Toprol XL) rosuvastatin 20 mg tablet (Crestor) 20 mg PO QAM 02/23/20 02/27/25 History psyllium husk 0.4 gram capsule 0.4 g PO DAILY PRN Constipation 09/27/20 02/27/25 History (Metamucil) acetaminophen 650 mg 650 mg PO TID PRN Pain 11/02/20 02/27/25 History tablet,extended release amlodipine 5 mg tablet 2.5 mg PO QAM 07/02/23 02/27/25 History escitalopram oxalate 10 mg tablet 10 mg PO QAM 07/02/23 02/27/25 History tramadol 50 mg tablet 50 mg PO Q6H PRN pain #30 tabs 10/16/24 02/27/25 Rx meloxicam 15 mg tablet 15 mg PO DAILY #30 tabs 01/13/25 02/27/25 Rx amitriptyline 10 mg tablet 10 mg PO HS 02/27/25 02/27/25 History cefpodoxime 100 mg tablet 100 mg PO BID 02/27/25 02/27/25 History cetirizine 10 mg tablet (Zyrtec) 10 mg PO DAILY 02/27/25 02/27/25 History cyanocobalamin (vitamin B-12) 1,000 mcg sublingual DAILY 02/27/25 02/27/25 History 1,000 mcg sublingual tablet famotidine 20 mg tablet 20 mg PO BID 02/27/25 02/27/25 History fluticasone propionate 50 2 spray intranasal DAILY 02/27/25 02/27/25 History mcg/actuation nasal spray,suspension melatonin 10 mg chewable tablet 20 mg PO HS 02/27/25 02/27/25 History nystatin 100,000 unit/gram topical 1 applic topical TID PRN UNDER 02/27/25 04/0 03/20 History powder (Klayesta) BREASTS NEEDED omeprazole 20 mg tablet,delayed 20 mg PO DAILY 02/27/25 02/27/25 History release polyethylene glycol 3350 17 17 g PO DAILY PRN Constipation 02/27/25 02/27/25 History gram/dose oral powder (Miralax) potassium citrate 10 mEq (1,080 10 meq PO QAM 02/27/25 02/27/25 History mg) tablet,extended release Patient History Medical History Herniated intervertebral disc of lumbar spine Fracture of left ankle, lateral malleolus mechanical fall 07/2016 resulting in left ankle/foot and right shoulder injuries, non-displaced left lateral malleous fracture per 08/01/20 x-ray- ortho monitoring/recommend boot x 3-4 weeks/no surgical intervention planned at this time History of kidney stones Osteoarthritis Chronic kidney disease stage III GERD (gastroesophageal reflux disease) + breakthrough symptoms History of melanoma right calf and foot Macular degeneration Anxiety and depression Tremor of both hands occasional Surgical History History of lumbar laminectomy L4 -L5 History of cardiac cath 2017- no stents (attempts to obtain official report unsuccesful) History of cataract surgery Left cataract extraction with IOL: 07/13/20: MAC sedation at [facility] [place] Right cataract extraction with IOL: 06/29/20: MAc sedation at [facility] [place] History of repair of rotator cuff RT History of lithotripsy MULTIPLE History of cystoscopy MULTIPLE History of esophagogastroduodenoscopy (EGD) History of colonoscopy H/O total hysterectomy History of tonsillectomy Family History Other No significant family history Social History Smoking Status: Former smoker Tobacco Type: Cigarettes Cigarettes Per Day: 2-4 Cigarettes a day.; Second Hand Exposure: No; Do You Dip or Chew Tobacco: No; Hx Alcohol Use: Yes Alcohol type: wine Hx Substance Use: No Preferred Language: Cuban Communication Ability: Effective Lab Manager Required: No Beliefs That Will Affect Care: None marital status: / Current Living Situation: Alone Feels Safe at Home: Yes Assistive Devices: Glasses, Hospital Bed and Walker Review of Systems Review of Systems: 10 point review of systems negative except for otherwise indicated. Physical Exam Constitutional: well developed and well nourished; no acute distress Eyes: + anicteric sclerae; pupils not irregula r Respiratory: normal respiratory effort; no respiratory distress, does not use accessory muscles and no cough Cardiovascular: well perfused Gastrointestinal (Abdomen): Inspection/Auscultation: abdomen normal to inspection; abdomen not distended Musculoskeletal: Extremities: extremities normal to inspection Skin: normal turgor; no rashes and no lesions Neurologic: moves all extremities and awake Psychiatric: Orientation: alert and oriented x 3 Results & Data Vital Signs (Past 12 Hours) Vital Signs Temp Pulse Resp BP Pulse Ox O2 Del Method 02/28/25 08:21 36.6 C 59 L 18 198/81 H 95 Room Air PG Care Time/CCT Total # of Minutes Spent Total Time Spent with Patient: Total time spent is greater than 50% in coordination of care (as documented) at patient's floor/unit and/or counseling patient: Coding Level of Care Code 61122 INT INP/OBS CARE 2/55MIN Diagnoses Kidney stone N20.0 Complicated UTI (urinary tract infection) N39.0
--- NOTE | 2025-02-28 13:10 | XRay Report ---
XR lumbar spine 2-3V HISTORY: 84 years-old Female pain, falls, r/o fracture acute low back pain status post fall COMPARISON: CT abdomen and pelvis 02/27/2025 TECHNIQUE: 3 views of the lumbar spine FINDINGS: Residual contrast within the urinary bladder lumen. Cholecystectomy. Moderate colonic fecal retention . Demineralized appearance of the bones. Discectomy with posterior abimael and screw fusion again noted a t L4-L5. Minimal lumbar levoscoliosis. Unchanged anterolisthesis L3 on L4 and L5 on S1 with severe fa cet arthrosis. IMPRESSION: 1. No acute fracture or subluxation. 2. Chronic findings as above. ACT 112: Negative or not required by law. The above report was generated using voice recognition software. It may contain grammatical, syntax o r spelling errors. Electronically signed by: Felix Leavitt M.D. 02/28/2025 1:08 PM
--- NOTE | 2025-02-28 13:53 | CT Scan Report ---
CT head/brain wo con CLINICAL HISTORY: 84 years-old Female with falls, dizziness, r/o cva. Acute dizziness with head trau ma status post fall TECHNIQUE: Multiple axial CT images of the head were obtained without contrast. A dose lowering tech nique was utilized adhering to the principles of ALARA. CT DOSE: 547.75 mGy.cm COMPARISON: 07/02/2023 FINDINGS: No acute intracranial hemorrhage, midline shift, intracranial mass, hydrocephalus, territorial ischem ia or abnormal extra-axial collection. Involutional changes with chronic microvascular ischemic disea se. The calvarium is intact. The paranasal sinuses, mastoid air cells, and middle ear cavities are clear . IMPRESSION: No acute intracranial abnormality or calvarial fracture. ACT 112: Negative or not required by law. The above report was generated using voice recognition software. It may contain grammatical, syntax o r spelling errors. Electronically signed by: Felix Leavitt M.D. 02/28/2025 1:51 PM
--- NOTE | 2025-02-28 17:11 | Hospitalist Progress Note ---
Date of Service February 28, 2025 Assessment & Plan (1) Complicated UTI (urinary tract infection): Plan per previous hospitalist notes with addendum: Patient is a 84-year-old female with past medical history significant for hypertension, CKD, hyperparathyroidism, GERD, hyperlipidemia, MDD, B12 deficiency, kidney stones, OA, osteoporosis who was admitted for a drug- resistant UTI. Patient also noting that she has been having black stools, abdominal pain and nausea and vomiting. 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 IV Cefepime Follow repeat urine sample 02/28 outpatient urine culture: Pseudomonoas, R to fluoroquinolines repeat urine culture: pending Urologist consulted- for ureteral stent placement Sunday ID consulted continue IV Cefepime Melena Possible GI Bleed Pt states she's been having abd pain with black stools, N/V KUB ordered in the ED FOBT pending CT abd/pelvis pending Hgb stable at 12.6 PRN antiemetics Follow H/H, consider GI consult in AM / Hg baseline 13, now 11 GI consulted, endoscopy this week after Urology procedures completed Protonix IV BID stop Meloxicam Recurrent falls CT head: No acute intracranial hemorrhage, midline shift, intracranial mass, hydrocephalus, territorial ischemia or abnormal extra-axial collection. Involutional changes with chronic microvascular ischemic disease. The calvarium is intact. The paranasal sinuses, mastoid air cells, and middle ear cavities are clear. IMPRESSION: No acute intracranial abnormality or calvarial fracture. Lumbar spine: No acute fracture or subluxation. check Ortho vital signs will need echo, Zio patch monitor in Tele Continue other home meds as ordered Diet: clears, NPO after midnight DVT prophylaxis: SCDs Dispo: pending, lives alone, PT/OT eval Admission and Anticipated Discharge Date Admission Date: February 27, 2025 Subjective ff up for Pseudomonas UTI, possible GI bleed etc. Seen resting in bed, sleeping but easily awakened Oriented x 3, answering questions appropriately States that she feels fine overall Has some mild lower abdominal discomfort, no dysuria, hematuria, fevers or chills, flank pain Denies abdominal pain, nausea or vomiting No melena hematochezia today Reports she has been having episodes of fall, 5 times since the start of the year Unclear how she falls but states that she has episodes of dizziness and also her legs are giving out on some of these episodes No other new symptoms Review of Systems Review of Systems: all noted and negative except for above Physical Exam Physical Exam: General- oriented x 3, not in distress, speaks in sentences with no effort or accessory muscle use Eyes- anicteric Neck- no JVD Lungs- clear breath sounds bilaterally, no rales/wheezes Heart- normal rate, regular rhythm; no murmurs Abdomen- normal bowel sounds, nondistended, soft, nontender No CVA tenderness Extremities- no pretibial edema, no calf tenderness Neuro- alert, oriented x 3; no gross focal neurologic deficits Skin- warm & dry Results & Data Results & Data Vital Signs (Past 12 Hours) Vital Signs Temp Pulse Resp BP Pulse Ox O2 Del Method 02/28/25 14:56 36.7 C 62 18 144/80 H 93 Room Air 02/28/25 08:21 36.6 C 59 L 18 198/81 H 95 Room Air all noted and reviewed including below
[2025-02-28] MEDS: hydrALAZINE HCL 20 MG/ML VIAL IV PRN (19:42)
[2025-03-01] MEDS: ONDANSETRON INJ 2 MG/ML 2 ML VIAL IV PRN (06:09)
[2025-03-01 07:09] LABS: Folate (Folic Acid),Ser orPlas 7.64 ng/ml (>5.38)
--- NOTE | 2025-03-01 08:24 | Gastroenterology Progress Note ---
Date of Service March 01, 2025 Assessment & Plan (1) Heme positive stool: Plan: Hemodynamically stable hemoglobin stable. No further evidence of overt bleeding. In light of possible melena recommend endoscopy after management of her ureteral stone later this week. Admission and Anticipated Discharge Date Admission Date: February 27, 2025 Subjective No abdominal pain no shortness of breath no chest pain Physical Exam Physical Exam: No acute distress Respiratory rate regular Cardiac rhythm regular Abdomen soft nontender Results & Data Results & Data Vital Signs (Past 12 Hours) Vital Signs Temp Pulse Pulse Resp BP Pulse Ox O2 Del Method 03/01/25 08:11 36.9 C 89 16 122/71 93 Room Air 03/01/25 08:09 130 H 03/01/25 05:25 91 H 145/72 H 03/01/25 05:05 99 H 174/93 H 03/01/25 04:09 36.6 C 61 16 143/71 H 95 Room Air 02/28/25 23:47 36.7 C 68 18 148/76 H 93 Room Air 02/28/25 21:58 92 H 02/28/25 21:45 169/71 H Laboratory Results Laboratory Results - last 48 hr 02/27/25 02/27/25 02/28/25 12:29 23:39 07:17 WBC 8.53 7.32 RBC 3.95 L 3.48 L Hgb 12.6 11.3 L 11.1 L Hct 37.5 33.6 L 33.0 L MCV 94.9 94.8 MCH 31.9 31.9 MCHC 33.6 33.6 RDW Std Deviation 43.6 44.0 RDW Coeff of Katrin 12.6 12.8 Plt Count 315 269 MPV 9.6 9.4 Immature Gran % (Auto) 0.4 0.8 Neut % (Auto) 74.2 66.0 Lymph % (Auto) 18.3 22.0 Wells % (Auto) 4.5 6.8 Eos % (Auto) 2.0 3.7 Baso % (Auto) 0.6 0.7 Neut # (Auto) 6.34 4.83 Lymph # (Auto) 1.56 1.61 Wells # (Auto) 0.38 0.50 Eos # (Auto) 0.17 0.27 Baso # (Auto) 0.05 0.05 Immature Gran # (Auto) 0.03 0.06 Sodium 140 139 Potassium 4.2 4.2 Chloride 106 109 H Carbon Dioxide 29 29 Anion Gap 5 1 L BUN 16 19 Creatinine 0.82 0.86 Est Cr Clr Drug Dosing Not Reportable 40.8 eGFR 70.93 66.99 BUN/Creatinine Ratio 19.5 22.1 H Glucose 100 H 89 Calcium 10.4 H 9.7 Phosphorus 3.0 Magnesium 2.0 Total Bilirubin 0.6 0.5 AST 20 15 ALT 9 10 Alkaline Phosphatase 60 48 Total Protein 6.8 5.7 L Albumin 4.2 3.5 Globulin 2.6 2.2 L Albumin/Globulin Ratio 1.6 1.6 Lipase 11 Vitamin B12 Folate Urine Color Urine Appearance Urine pH Ur Specific [place] Urine Protein Urine Glucose (UA) Urine Ketones Urine Blood Urine Nitrite Urine Bilirubin Urine Urobilinogen Ur Leukocyte Esterase Urine WBC (Auto) Urine RBC (Auto) U Hyaline Cast (Auto) U Epithel Cells (Auto) Urine Bacteria (Auto) 02/28/25 03/01/25 Unknown 05:56 WBC RBC Hgb Hct MCV MCH MCHC RDW Std Deviation RDW Coeff of [place] Plt Count MPV Immature Gran % (Auto) Neut % (Auto) Lymph % (Auto) Wells % (Auto) Eos % (Auto) Baso % (Auto) Neut # (Auto) Lymph # (Auto) Wells # (Auto) Eos # (Auto) Baso # (Auto) Immature Gran # (Auto) Sodium Potassium Chloride Carbon Dioxide Anion Gap BUN Creatinine Est Cr Clr Drug Dosing eGFR BUN/Creatinine Ratio Glucose Calcium Phosphorus Magnesium Total Bilirubin AST ALT Alkaline Phosphatase Total Protein Albumin Globulin Albumin/Globulin Ratio Lipase Vitamin B12 515 Folate 7.64 Urine Color Yellow Urine Appearance Clear Urine pH 5.5 Ur Specific [place] > 1.045 H Urine Protein 1+ H Urine Glucose (UA) Negative Urine Ketones Trace H Urine Blood 2+ H Urine Nitrite Positive A Urine Bilirubin Negative Urine Urobilinogen Negative Ur Leukocyte Esterase Trace H Urine WBC (Auto) >50 H Urine RBC (Auto) 6-10 H U Hyaline Cast (Auto) 0-2 U Epithel Cells (Auto) 0-2 Urine Bacteria (Auto) None Seen PG Care Time/CCT Total # of Minutes Spent Total Time Spent with Patient: Total time spent is greater than 50% in coordination of care (as documented) at patient's floor/unit and/or counseling patient: Coding Level of Care Code 33627 SUB INP/OBS CARE 235MIN Diagnoses Heme positive stool R19.5
[2025-03-01 09:40] LABS: Basophils # (auto) 0.06 K/uL (0.00-0.20); Basophils % (auto) 0.6 %; Eosinophils # (auto) 0.21 K/uL (0.00-0.50); Hematocrit (blood only) 36.2 % (37.0-47.0); Hemoglobin 12.3 g/dl (12.0-16.0); Immature Granulocytes # (auto) 0.07 K/uL (0.01-0.20); Immature Granulocytes % (auto) 0.7 %; Lymphocytes % (auto) 11.3 %; Mean Corpuscular Hemoglobin 31.7 pg (25.0-34.0); Mean Corpuscular Volume 93.3 fL (80.0-100.0); Mean Platelet Volume 9.3 fL (9.4-12.4); Monocytes # (auto) 0.63 K/uL (0.11-0.59); Monocytes % (auto) 5.9 %; Neutrophils # (auto) 8.48 K/uL (1.40-6.50); Neutrophils % (auto) 79.5 %; Platelet Count 290 K/uL (130-400); RDW Coefficient of Variation 12.9 % (11.5-14.5); RDW Standard Deviation 43.8 fL (36.4-46.3); Red Blood Count 3.88 M/uL (4.20-5.40); White Blood Count 10.65 K/ul (4.8-10.8)
--- NOTE | 2025-03-01 09:54 | Urology Progress Note ---
Date of Service March 01, 2025 Assessment & Plan (1) Kidney stone: (2) Complicated UTI (urinary tract infection): Plan We reviewed the plan for cystoscopy, right retrograde pyelogram and right ureteral stent placement. We reviewed risks and benefits of surgery. She expressed understanding and would like to proceed with surgery. She should remain on broad-spectrum antibiotics, narrow coverage as culture data becomes available. Admission and Anticipated Discharge Date Admission Date: February 27, 2025 Subjective Feeling okay this morning, denies fevers or chills Has not passed her stone Slight increase in WBC today (10.65)., Electrolytes/creatinine pending Urine culture still pending, remains on cefepime Physical Exam Physical Exam: Resting in bed, NAD Results & Data Vital Signs (Past 12 Hours) Vital Signs Temp Pulse Pulse Resp BP Pulse Ox O2 Del Method 03/01/25 08:11 36.9 C 89 16 122/71 93 Room Air 03/01/25 08:09 130 H 03/01/25 05:25 91 H 145/72 H 03/01/25 05:05 99 H 174/93 H 03/01/25 04:09 36.6 C 61 16 143/71 H 95 Room Air 02/28/25 23:47 36.7 C 68 18 148/76 H 93 Room Air 02/28/25 21:58 92 H PG Care Time/CCT Total # of Minutes Spent Total Time Spent with Patient: Total time spent is greater than 50% in coordination of care (as documented) at patient's floor/unit and/or counseling patient: Coding Level of Care Code 93775 SUB INP/OBS CARE 12/20MIN Diagnoses Kidney stone N20.0 Complicated UTI (urinary tract infection) N39.0
[2025-03-01] MEDS ORDERED: ATROPINE SULFATE 0.1 MG/ML 10ML SYR IV PRN (09:55)
[2025-03-01] MEDS ORDERED: ePHEDrine sulfate 50 MG/ML AMP IV PRN (09:55)
[2025-03-01] MEDS ORDERED: fentaNYL citrate PF 100 MCG/2 ML VIAL IV PRN (09:55)
[2025-03-01] MEDS ORDERED: ONDANSETRON INJ 2 MG/ML 2 ML VIAL IV PRN (09:55)
[2025-03-01 10:02] LABS: Albumin Level 3.7 gm/dl (3.4-5.0); Bilirubin,Total 0.5 mg/dl (0.2-1.0); Potassium 4.1 mmol/L (3.5-5.1)
--- NOTE | 2025-03-01 10:03 | Anesthesiology Consultation ---
Date of Service March 01, 2025 Assessment & Plan ASA ASA3 Proposed Anesthesia Anesthesia Type: General Risk / Benefits Reviewed With: PT / POA / Parent / Guardian, Accepts Plan and Informed Consent Obtained History Surgery Operation Date: 03/01/25 09:00 Proposed Procedures p Cystoscopy(Right) - Reece Dietrich MD s Ureteral Stent Insertion/Removal(Right) - Reece Dietrich MD Height/Weight Height: 5 ft 1 in Weight: 58.7 kg Allergies Allergy/AdvReac Type Severity Reaction Status Date / Time pollen extracts Allergy Mild RUNNY NOSE Verified 02/27/25 16:48 Penicillins Allergy Unknown HAPPENED A Verified 02/27/25 16:44 LONG TIME AGO. lisinopril AdvReac Intermediate Cough Verified 02/27/25 16:48 oxycodone AdvReac Intermediate nausea, Verified 02/27/25 16:44 constipation, "didn't feel right" Medications Home Medications Medication Instructions Recorded Confirmed Last Taken metoprolol succinate 25 mg 25 mg PO QAM 02/23/20 02/27/25 02/26/25 tablet,extended release 24 hr (Toprol XL) rosuvastatin 20 mg tablet (Crestor) 20 mg PO QAM 02/23/20 02/27/25 02/25/25 psyllium husk 0.4 gram capsule 0.4 g PO DAILY PRN Constipation 09/27/20 02/27/25 09/26/20 10:00 (Metamucil) acetaminophen 650 mg 650 mg PO TID PRN Pain 11/02/20 02/27/25 02/25/25 tablet,extended release amlodipine 5 mg tablet 2.5 mg PO QAM 07/02/23 02/27/25 02/25/25 escitalopram oxalate 10 mg tablet 10 mg PO QAM 07/02/23 02/27/25 02/26/25 tramadol 50 mg tablet 50 mg PO Q6H PRN pain #30 tabs 10/16/24 02/27/25 Unknown meloxicam 15 mg tablet 15 mg PO DAILY #30 tabs 01/13/25 02/27/25 02/25/25 amitriptyline 10 mg tablet 10 mg PO HS 02/27/25 02/27/25 02/25/25 cefpodoxime 100 mg tablet 100 mg PO BID 02/27/25 02/27/25 02/25/25 cetirizine 10 mg tablet (Zyrtec) 10 mg PO DAILY 02/27/25 02/27/25 02/25/25 cyanocobalamin (vitamin B-12) 1,000 mcg sublingual DAILY 02/27/25 02/27/25 02/25/25 1,000 mcg sublingual tablet famotidine 20 mg tablet 20 mg PO BID 02/27/25 02/27/25 02/25/25 fluticasone propionate 50 2 spray intranasal DAILY 02/27/25 02/27/25 02/25/25 mcg/actuation nasal spray,suspension melatonin 10 mg chewable tablet 20 mg PO HS 02/27/25 02/27/25 02/25/25 nystatin 100,000 unit/gram topical 1 applic topical TID PRN UNDER 02/27/25 02/27/25 Unknown powder (Klayesta) BREASTS NEEDED omeprazole 20 mg tablet,delayed 20 mg PO DAILY 02/27/25 02/27/25 02/25/25 release polyethylene glycol 3350 17 17 g PO DAILY PRN Constipation 02/27/25 02/27/25 Unknown gram/dose oral powder (Miralax) potassium citrate 10 mEq (1,080 10 meq PO QAM 02/27/25 02/27/25 02/25/25 mg) tablet,extended release Active Medications Generic Name Dose Route Start Last Admin Trade Name Freq PRN Reason Stop Dose Admin Acetaminophen 650 mg 02/27/25 21:25 03/01/25 06:03 Acetaminophen 325 Mg Tab PO 03/29/25 21:24 650 mg TID PRN Administration Pain Amitriptyline HCl 10 mg 02/27/25 21:30 02/28/25 20:37 Amitriptyline Hcl 10 Mg Tab PO 03/29/25 21:29 10 mg HS BENNY Administration Amlodipine Besylate 5 mg 02/28/25 09:00 02/28/25 08:29 Amlodipine Besylate 5 Mg Tab PO 03/30/25 08:59 5 mg QAM BENNY Administration Cetirizine HCl 10 mg 02/28/25 09:00 02/28/25 08:29 Cetirizine Hcl 10 Mg Tablet PO 03/30/25 08:59 10 mg DAILY BENNY Administration Cyanocobalamin 1,000 mcg 02/28/25 09:00 02/28/25 08:29 Cyanocobalamin (B-12) 500 Mcg Tablet PO 03/30/25 08:59 1,000 mcg DAILY BENNY Administration Escitalopram Oxalate 10 mg 02/28/25 09:00 02/28/25 08:30 Escitalopram Oxalate 10 Mg Tab PO 03/30/25 08:59 10 mg QAM BENNY Administration Famotidine 20 mg 02/27/25 21:30 02/28/25 20:37 Famotidine 20 Mg Tab PO 03/29/25 21:29 20 mg BID BENNY Administration Fluticasone Propionate 2 sprays 02/28/25 09:00 02/28/25 08:30 Fluticasone Propionate Na Spr 16 Gm Btl NA 03/30/25 08:59 2 sprays DAILY BENNY Administration Hydralazine HCl 5 mg 02/28/25 11:47 03/01/25 05:05 Hydralazine Hcl 20 Mg/Ml Vial IV 03/30/25 11:46 5 mg Q6H PRN Administration systolic bp > 160 Cefepime HCl 2,000 mg in 20 mls @ 5 mls/min 02/28/25 06:00 03/01/25 05:04 Maxipime 2000mg IV 03/10/25 05:59 5 mls/min Q12H BENNY Administration Protocol Pantoprazole Sodium 40 mg in 10 mls @ 5 mls/min 02/28/25 09:00 02/28/25 20:37 Protonix IV 03/30/25 08:59 5 mls/min BID BENNY Administration Lactobacillus Acidophilus 1,250 mg 02/28/25 09:00 02/28/25 08:39 Advanced Probiotic 625 Mg Capsule PO 03/30/25 08:59 1,250 mg DAILY BENNY Administration Lidocaine 1 patch 02/27/25 17:00 02/28/25 08:26 Lidocaine 5% 1 Patch TD 03/29/25 16:59 Not Given QAM BENNY Melatonin 9 mg 02/27/25 21:25 02/28/25 20:37 Melatonin 3 Mg Tab PO 03/29/25 21:24 9 mg HS PRN Administration Sleep Metoprolol Succinate 25 mg 02/28/25 09:00 02/28/25 08:29 Metoprolol Succ 25mg Ext Rel Tab PO 03/30/25 08:59 25 mg QAM BENNY Administration Miscellaneous 1 each 02/27/25 21:00 02/28/25 20:37 Remove Lidoderm Patch N/A 03/29/25 20:59 1 each DAILY@2100 BENNY Administration Ondansetron HCl 4 mg 02/27/25 16:51 03/01/25 06:09 Ondansetron Inj 2 Mg/Ml 2 Ml Vial IV 03/29/25 16:50 4 mg Q6H PRN Administration Nausea And Vomiting Potassium Citrate 10 meq 02/28/25 09:00 02/28/25 08:29 Potassium Citrate 10 Meq Tab PO 03/30/25 08:59 10 meq QAM BENNY Administration Rosuvastatin Calcium 20 mg 02/28/25 09:00 02/28/25 08:29 Rosuvastatin Calcium 20 Mg Tab PO 03/30/25 08:59 20 mg QAM BENNY Administration NPO Date Last Intake of Fluids: 02/27/25 Time Last Intake of Fluids: 23:59 Date Last Intake of Solids: 02/27/25 Time Last Intake of Solids: 23:59 Past Medical History Medical History Herniated intervertebral disc of lumbar spine Fracture of left ankle, lateral malleolus mechanical fall 07/2016 resulting in left ankle/foot and right shoulder injuries, non-displaced left lateral malleous fracture per 08/01/20 x-ray- ortho monitoring/recommend boot x 3-4 weeks/no surgical intervention planned at this time History of kidney stones Osteoarthritis Chronic kidney disease stage III GERD (gastroesophageal reflux disease) + breakthrough symptoms History of melanoma right calf and foot Macular degeneration Anxiety and depression Tremor of both hands occasional Exercise / Class Metabolic Activity II 4-5 Yardwork/Stairs/Walk up hill Past Family History Family History Other No significant family history Past Surgical History Surgical History History of lumbar laminectomy L4 -L5 History of cardiac cath 2017- no stents (attempts to obtain official report unsuccesful) History of cataract surgery Left cataract extraction with IOL: 07/13/20: [place] [facility] [place] with IOL: 06/29/20: MAc [place] [facility] [place] History of repair of rotator cuff RT History of lithotripsy MULTIPLE History of cystoscopy MULTIPLE History of esophagogastroduodenoscopy (EGD) History of colonoscopy H/O total hysterectomy History of tonsillectomy Past Anesthesia History No Hx of Anesthesia Complications and No Family Hx of Anesthesia Complications History of PONV No Hx of PONV and No Hx of Motion Sickness Social History Smoking Status: Former smoker tobacco type: cigarettes Smoking cigarettes per day: 2-4 Cigarettes a day. Do You Dip or Chew Tobacco: No Hx Alcohol Use: Yes Alcohol type: wine alcohol intake frequency: a few times a month Hx Substance Use: No substance use type: does not use Review of Systems denies fever/cough/ colds/ chest pain/ SOB/ ROMI denies ROMI Physical Exam Vital Signs Last Vital Signs Temp 36.9 C 03/01/25 08:11 Pulse 89 03/01/25 08:11 Resp 16 03/01/25 08:11 BP 122/71 03/01/25 08:11 Pulse Ox 93 03/01/25 08:11 O2 Del Method Room Air 03/01/25 08:11 ENMT Mouth: no TMJ abnormality and no dentition abnormality Thyromental Distance: > or= 3.5 Finger Breadths Mallampati Class: II Neck neck extension not limited Respiratory normal respiratory effort; no respiratory distress Auscultation: lungs clear to auscultation bilaterally Cardiovascular Rate/Rhythm: regular rate and regular rhythm Neurologic moves all extremities Psychiatric Orientation: alert and oriented x 3 Testing Laboratory Results 03/01/25 09:10 Urine Color Yellow 02/28/25 Unknown Urine Appearance Clear (Clear) 02/28/25 Unknown Urine pH 5.5 (4.5-7.5) 02/28/25 Unknown Ur Specific [place] > 1.045 (1.000-1.030) H 02/28/25 Unknown Urine Protein 1+ (Negative) H 02/28/25 Unknown Urine Glucose (UA) Negative (Negative) 02/28/25 Unknown Urine Ketones Trace (Negative) H 02/28/25 Unknown Urine Nitrite Positive (Negative) A 02/28/25 Unknown Ur Leukocyte Esterase Trace (Negative) H 02/28/25 Unknown Urine WBC (Auto) >50 /hpf (0-5) H 02/28/25 Unknown Urine RBC (Auto) 6-10 /hpf (0-2) H 02/28/25 Unknown U Hyaline Cast (Auto) 0-2 /lpf (0-2) 02/28/25 Unknown U Epithel Cells (Auto) 0-2 /hpf (0-2) 02/28/25 Unknown Urine Bacteria (Auto) None Seen (None Seen) 02/28/25 Unknown
[2025-03-01 10:08] LABS: Albumin Globulin Ratio 1.5 (0.9-2); BUN Creatinine Ratio 22.4 (10-20); Creatinine Clr Calc Pharmacy 46.2 ml/min; Globulin 2.4 gm/dl (2.5-4.0); Total Protein 6.1 gm/dl (6.0-8.3)
[2025-03-01] MEDS ORDERED: MIDAZOLAM HCL 1 MG/ML 2ML VIAL ONE (10:15)
[2025-03-01] MEDS ORDERED: PROPOFOL IV EMULSION 10 MG/ML 20 ML VIAL IV ONE (10:15)
[2025-03-01] MEDS ORDERED: fentaNYL citrate PF 100 MCG/2 ML VIAL ONE (10:15)
[2025-03-01] MEDS ORDERED: PHENYLEPHRINE 100MCG/ML 5ML SYR ONE (10:25)
[2025-03-01] MEDS: DIATRIZOATE MEGLUMINE 30% 100ML VIAL INSTIL ONE (10:35)
--- NOTE | 2025-03-01 10:35 | Operative Report ---
PG Post Operative Report Pre & Post Diagnosis Operation Date: 03/01/25 09:00 Pre-Op Diagnosis: Right Ureteral Stone, UTI Post-Op Diagnosis: Right Ureteral Stone, UTI I identified the patient and participated in the time-out.: Yes Procedure Operation Date: 03/01/25 09:00 Actual Procedures p Cystoscopy, Right Retrograde Pyleogram and Insertion of Right Ureteral Stent(Right) - Reece Dietrich MD Surgeon Reece Dietrich MD Ma[employer] Cooking None Estimated Blood Loss 0 Findings Consistent with Post-Op Diagnosis Specimens None Drains 6 [place] x 24 cm double-J ureteral stent in the right ureter Anesthesia Type MAC Complications none Disposition Accompanied Patient To Recovery: Yes Disposition: Recovery Room Indications This is an 84-year-old female recently found to have a right ureteral stone as well as UTI. She is brought to the OR for right ureteral stent placement. Description of Procedure The patient was identified in the holding area and informed consent was confirmed. She was marked on the right side, then was taken to the operating room where anesthesia was initiated. She was placed in the dorsal lithotomy position with all pressure points appropriately padded. She was prepped and draped in the usual sterile fashion and a preoperative timeout was performed. A well-lubricated cystoscope was inserted per urethra and panendoscopy was performed. The urethra was normal in appearance. The bladder was of normal size with ureteral orifices in orthotopic position. The right ureteral orifice was identified and cannulated with a 5 [place] open- ended catheter. A retrograde pyelogram was performed demonstrating the distal ureter was normal in course and caliber. There was a narrowed area at the UPJ and right hydronephrosis. A ZIPwire was advanced to the level of the kidney under fluoroscopic guidance. Over the wire, a 6 [place] x 24 centimeter double-J ureteral stent was advanced. When the wire was removed, the proximal curl was visualized in the kidney with x-ray, and the distal curl visualized in the bladder with the cystoscope. At this point the bladder was drained and all instrumentation was removed. The patient was then awakened from anesthesia and was brought to the PACU in stable condition. I attest to the content of the Intraoperative Record and any orders documented therein. Any exceptions are noted below.
--- NOTE | 2025-03-01 11:02 | Anesthesiology Progress Note ---
Date of Service March 01, 2025 Anesthesia Post Procedure Vital Signs Vital Signs: Temp Pulse Pulse Pulse Resp BP Pulse Ox 03/01/25 10:57 36.2 C L 71 19 120/61 98 03/01/25 10:45 75 18 118/63 99 03/01/25 10:38 36.3 C L 93 H 19 150/80 H 98 03/01/25 08:11 36.9 C 89 16 122/71 93 03/01/25 08:09 130 H 03/01/25 05:25 91 H 145/72 H 03/01/25 05:05 99 H 174/93 H 03/01/25 04:09 36.6 C 61 16 143/71 H 95 02/28/25 23:47 36.7 C 68 18 148/76 H 93 02/28/25 21:58 92 H 02/28/25 21:45 169/71 H 02/28/25 18:56 78 02/28/25 14:56 36.7 C 62 18 144/80 H 93 O2 Del Method O2 Flow Rate 03/01/25 10:57 Room Air 03/01/25 10:45 Oxymask 5 03/01/25 10:38 Oxymask 8 03/01/25 08:11 Room Air 03/01/25 08:09 03/01/25 05:25 03/01/25 05:05 03/01/25 04:09 Room Air 02/28/25 23:47 Room Air 02/28/25 21:58 02/28/25 21:45 02/28/25 18:56 02/28/25 14:56 Room Air Pain Intensity Bilateral Lower Abdomen: Pain Intensity: 0 Transfer of Care Handoff Completed per policy Notes Mental Status: alert / awake / arousable and participated in evaluation Patient Amnestic to Procedure: Yes Nausea / Vomiting: adequately controlled Pain: adequately controlled Airway Patency, RR, SpO2: stable & adequate BP & HR: stable & adequate Hydration State: stable & adequate Anesthetic Complications: no major complications apparent and Pt Satisfied with anesthetic care
--- NOTE | 2025-03-01 11:26 | Fluoroscopy Report ---
FL retrograde includes kub CLINICAL HISTORY: RT SIDE CYSTOright-sided cystourethrogram COMPARISON STUDY: Lumbar spine radiographs 525 FLUOROSCOPY TIME: 7.7 seconds FLUOROSCOPY IMAGES: 1 EXPOSURE DOSE: 1.21 mGy FINDINGS: Proximal portion of a right ureteral stent is in satisfactory position, the distal portion was not imaged. Mild right-sided hydronephrosis. Partially imaged lumbar spinal fusion hardware. Chol ecystectomy. IMPRESSION: Fluoroscopic assistance as above. ACT 112: Negative or not required by law. Electronically signed by: Felix Leavitt M.D. 03/01/2025 11:25 AM
--- NOTE | 2025-03-01 13:53 | Hospitalist Progress Note ---
Date of Service March 01, 2025 Assessment & Plan (1) Complicated UTI (urinary tract infection): Plan per previous hospitalist notes with addendum: Patient is a 84-year-old female with past medical history significant for hypertension, CKD, hyperparathyroidism, GERD, hyperlipidemia, MDD, B12 deficiency, kidney stones, OA, osteoporosis who was admitted for a drug- resistant UTI. Patient also noting that she has been having black stools, abdominal pain and nausea and vomiting. Complicated UTI Right ureteral stone With mild hydronephrosis Pt with outpt urine cx from 02/13/25 that grew pseudomonas resistant to the fluoroquinolones but susceptible to cefepime States that her pcp prescribed her the medication cefpodoxime proxetil which she states it took a week for her pharmacy to get, and had one dose ASSOCIATE DIRECTOR QA Repeat UA pending IV Cefepime Follow repeat urine sample 02/28 outpatient urine culture: Pseudomonoas, R to fluoroquinolines repeat urine culture: pending Urologist consulted- for ureteral stent placement Sunday ID consulted continue IV Cefepime 03/01 Afebrile Repeat urine culture: Pending Currently on IV cefepime, awaiting ID recommendations for antibiotic regimen Status post right ureteral stent placement today by Dr. Reece Dietrich Strain urine Will need urology follow-up for stent removal in 1 to 2 weeks Melena Possible GI Bleed Pt states she's been having abd pain with black stools, N/V KUB ordered in the ED FOBT pending CT abd/pelvis pending Hgb stable at 12.6 PRN antiemetics Follow H/H, consider GI consult in AM 4/ Hg baseline 13, now 11 GI consulted, endoscopy this week after Urology procedures completed Protonix IV BID stop Meloxicam 03/01 No recurrence of melena while inpatient Hemoglobin remaining at 11 Continue Protonix IV twice daily Possible upper GI endoscopy this week per GI service Recurrent falls CT head: No acute intracranial hemorrhage, midline shift, intracranial mass, hydrocephalus, territorial ischemia or abnormal extra-axial collection. Involutional changes with chronic microvascular ischemic disease. The calvarium is intact. The paranasal sinuses, mastoid air cells, and middle ear cavities are clear. IMPRESSION: No acute intracranial abnormality or calvarial fracture. Lumbar spine: No acute fracture or subluxation. check Ortho vital signs will need echo, Zio patch monitor in Tele 03/01 Orthostatic vital signs pending Telemetry: No arrhythmias so far PT OT evaluation Continue other home meds as ordered Diet: clears, NPO after midnight DVT prophylaxis: SCDs Dispo: pending, lives alone, PT/OT eval Admission and Anticipated Discharge Date Admission Date: February 27, 2025 Subjective follow-up for UTI, right ureteral stone, possible GI bleed, multiple falls, etc. Seen resting in bed, very drowsy, status post right ureteral stent placement Easily awakened initially does not remember me, eventual recalled our discussion from yesterday States she feels fine overall Denies abdominal pain, back pain No nausea, vomiting, melena hematochezia No other new symptoms Review of Systems Review of Systems: all noted and negative except for above Physical Exam Physical Exam: General- mostly drowsy, not in distress, speaks in sentences with no effort or accessory muscle use Eyes- anicteric Neck- no JVD Lungs- clear breath sounds bilaterally, no rales/wheezes Heart- normal rate, regular rhythm; no murmurs Abdomen- normal bowel sounds, nondistended, soft, nontender Extremities- no pretibial edema, no calf tenderness Neuro- alert, oriented x 3; no gross focal neurologic deficits Skin- warm & dry Results & Data Results & Data Vital Signs (Past 12 Hours) Vital Signs Temp Pulse Pulse Pulse Resp BP Pulse Ox 03/01/25 13:00 36.5 C 72 18 132/68 95 03/01/25 12:00 36.7 C 68 18 128/69 95 03/01/25 11:30 36.6 C 75 18 124/69 94 03/01/25 11:11 36.7 C 75 16 124/69 95 03/01/25 10:57 36.2 C L 71 19 120/61 98 03/01/25 10:45 75 18 118/63 99 03/01/25 10:38 36.3 C L 93 H 19 150/80 H 98 03/01/25 08:11 36.9 C 89 16 122/71 93 03/01/25 08:09 130 H 03/01/25 05:25 91 H 145/72 H 03/01/25 05:05 99 H 174/93 H 03/01/25 04:09 36.6 C 61 16 143/71 H 95 O2 Del Method O2 Flow Rate 03/01/25 13:00 Room Air 03/01/25 12:00 Room Air 03/01/25 11:30 Room Air 03/01/25 11:11 Room Air 03/01/25 10:57 Room Air 03/01/25 10:45 Oxymask 5 03/01/25 10:38 Oxymask 8 03/01/25 08:11 Room Air 03/01/25 08:09 03/01/25 05:25 03/01/25 05:05 03/01/25 04:09 Room Air all noted and reviewed including below
[2025-03-02 08:16] LABS: Basophils # (auto) 0.05 K/uL (0.00-0.20); Basophils % (auto) 0.6 %; Eosinophils % (auto) 3.3 %; Hematocrit (blood only) 37.3 % (37.0-47.0); Hemoglobin 12.5 g/dl (12.0-16.0); Immature Granulocytes # (auto) 0.06 K/uL (0.01-0.20); Immature Granulocytes % (auto) 0.7 %; Lymphocytes # (auto) 1.56 K/uL (1.20-3.40); Lymphocytes % (auto) 17.2 %; Mean Corpuscular Hgb Conc 33.5 g/dL (32.0-36.0); Mean Corpuscular Volume 95.4 fL (80.0-100.0); Mean Platelet Volume 9.2 fL (9.4-12.4); Monocytes # (auto) 0.59 K/uL (0.11-0.59); Monocytes % (auto) 6.5 %; Neutrophils # (auto) 6.49 K/uL (1.40-6.50); Neutrophils % (auto) 71.7 %; Platelet Count 283 K/uL (130-400); RDW Coefficient of Variation 12.9 % (11.5-14.5); RDW Standard Deviation 45.6 fL (36.4-46.3); Red Blood Count 3.91 M/uL (4.20-5.40); White Blood Count 9.05 K/ul (4.8-10.8)
[2025-03-02 08:32] LABS: BUN Creatinine Ratio 18.1 (10-20); Potassium 4.5 mmol/L (3.5-5.1)
--- NOTE | 2025-03-02 10:03 | Urology Progress Note ---
Date of Service March 02, 2025 Assessment & Plan (1) Right ureteral stone: (2) Complicated UTI (urinary tract infection): Plan: - Pt POD#1 s/p cystoscopy and right ureteral stent placement - Doing well, progressing as expected - Afebrile, lab work reviewed - creatinine 0.94, WBC 9.05 - Tolerating right ureteral stent with minimal bother - Urine culture prelim with Pseudomonas - Continue antibiotics per culture data - Okay to d/c from perspective when medically stable - Recommend d/c with course of appropriate PO antibiotics - Expected clinical course reviewed, all questions answered - Will arrange outpatient follow-up with our service to discuss definitive stone treatment - will sign off, recall as needed Admission and Anticipated Discharge Date Admission Date: February 27, 2025 Subjective Patient seen and examined at bedside this morning. She is awake and sitting up in bed. She denies flank pain or bother. Voiding spontaneously. Denies nausea, vomiting, fever or chills. Review of Systems Constitutional: as per Subjective / HPI Genitourinary: as per Subjective / HPI Physical Exam Constitutional: well developed and well nourished; no acute distress Respiratory: normal respiratory effort; no respiratory distress and no labored breathing Gastrointestinal (Abdomen): Inspection/Auscultation: abdomen normal to inspection Musculoskeletal: Head/Neck/Chest: normocephalic Neurologic: moves all extremities and awake Psychiatric: Orientation: alert and oriented x 3 Results & Data Vital Signs (Past 12 Hours) Vital Signs Temp Pulse Pulse Pulse Resp BP BP 03/02/25 08:31 162/70 H 03/02/25 07:43 36.6 C 75 16 03/02/25 07:00 114 H 03/02/25 03:45 36.9 C 67 18 159/77 H 03/02/25 00:37 76 03/01/25 22:34 36.9 C 70 18 139/76 Pulse Ox O2 Del Method 03/02/25 08:31 03/02/25 07:43 94 Room Air 03/02/25 07:00 03/02/25 03:45 91 Room Air 03/02/25 00:37 03/01/25 22:34 93 Room Air PG Care Time/CCT Total # of Minutes Spent Total Time Spent with Patient: Total time spent is greater than 50% in coordination of care (as documented) at patient's floor/unit and/or counseling patient: Coding Level of Care Code 90149 SUB INP/OBS CARE MIN Diagnoses Right ureteral stone N20.1 Complicated UTI (urinary tract infection) N39.0
--- NOTE | 2025-03-02 12:11 | Gastroenterology Progress Note ---
Date of Service March 02, 2025 Assessment & Plan (1) Heme positive stool: Plan: Patient has stable hemoglobin. No evidence of overt bleeding per nursing. There was a question of possible melena and Dr. Mcgarry had recommended endoscopy after management of her ureteral stone but now she is having some confusion. - continue to follow hgb/hct. - continue with protonix 40mg IV bid. - will discuss further with Dr. Mcgarry. further recommendations to follow. Admission and Anticipated Discharge Date Admission Date: February 27, 2025 Supervising Physician Co-Signing Physician Notes I saw and examined this patient with our nurse practitioner and agree with her assessment and plan. Today seems somewhat confused. Possibly sequelae from stone extraction yesterday. He is to be further evaluated. Ultimately would like to do an endoscopy prior to discharge to further assess her heme positive stool history of melena. Subjective Patient seems confused this morning. she is alert but will not answer my questions. spoke with nursing, no noted blood in the stool or melena. 03/02 hgb 12.5 (previously 12.3). Physical Exam Gastrointestinal (Abdomen): normal bowel sounds, nontender, soft. Results & Data Results & Data Vital Signs (Past 12 Hours) Vital Signs Temp Pulse Pulse Pulse Resp BP BP 03/02/25 10:52 97.7 F 75 20 155/87 H 03/02/25 08:31 162/70 H 03/02/25 07:43 97.9 F 75 16 03/02/25 07:00 114 H 03/02/25 03:45 98.4 F 67 18 159/77 H 03/02/25 00:37 76 Pulse Ox O2 Del Method 03/02/25 10:52 97 Room Air 03/02/25 08:31 03/02/25 07:43 94 Room Air 03/02/25 07:00 03/02/25 03:45 91 Room Air 03/02/25 00:37 Laboratory Results Laboratory Results - last 48 hr 03/01/25 03/01/25 03/02/25 05:56 09:10 08:00 WBC 10.65 9.05 RBC 3.88 L 3.91 L Hgb 12.3 12.5 Hct 36.2 L 37.3 MCV 93.3 95.4 MCH 31.7 32.0 MCHC 34.0 33.5 RDW Std Deviation 43.8 45.6 RDW Coeff of Katrin 12.9 12.9 Plt Count 290 283 MPV 9.3 L 9.2 L Immature Gran % (Auto) 0.7 0.7 Neut % (Auto) 79.5 71.7 Lymph % (Auto) 11.3 17.2 [place] % (Auto) 5.9 6.5 Eos % (Auto) 2.0 3.3 Baso % (Auto) 0.6 0.6 Neut # (Auto) 8.48 H 6.49 Lymph # (Auto) 1.20 1.56 [place] # (Auto) 0.63 H 0.59 Eos # (Auto) 0.21 0.30 Baso # (Auto) 0.06 0.05 Immature Gran # (Auto) 0.07 0.06 Sodium 139 139 Potassium 4.1 4.5 Chloride 108 H 106 Carbon Dioxide 26 30 Anion Gap 5 3 BUN 17 17 Creatinine 0.76 0.94 Est Cr Clr Drug Dosing 46.2 37.0 eGFR 77.70 60.21 BUN/Creatinine Ratio 22.4 H 18.1 Glucose 119 H 102 H Calcium 10.0 10.0 Magnesium 2.0 2.0 Iron 83 Total Bilirubin 0.5 AST 13 ALT 8 Alkaline Phosphatase 52 Total Protein 6.1 Albumin 3.7 Globulin 2.4 L Albumin/Globulin Ratio 1.5 Vitamin B12 515 Folate 7.64 Coding Level of Care Code 30043 SUB INP/OBS CARE 12/20MIN Diagnoses Heme positive stool R19.5
--- NOTE | 2025-03-02 14:23 | Infectious Disease Consult ---
Date of Service March 02, 2025 Telehealth Information I performed this visit using a real-time telehealth connection between my location and the patients location ([facility]). After connecting through interactive tele-video, patient was identified by name and date of and/or wristband check.Patient (or authorized healthcare call center representative) was informed that this was a telemedicine visit and it was being conducted confidentially over secure lines. My office door was closed and no one else was present in the room with me.Patient (or authorized healthcare call center representative) provided consent to proceed with the visit, expressed an understanding of privacy and security of the telemedicine visit, and gave permission to have a hospital call center representative in the room in order to assist with the visit and to conduct portions of the visit, as needed. I informed the patient (or authorized healthcare call center representative) that I reviewed their record and presented the opportunity for them to ask any questions regarding the visit today. The patient agreed to participate. Assessment & Plan (1) Right ureteral stone: Plan: Patient admitted with abdominal pain and found to have obstructive uropathy S/P stent placement. It is less clear if she had an infection. No leukocytosis or fevers noted. Urine culture with only 30K Pseudomonas. In the setting of her procedure, it makes sense to treat her regardless. Sensitivities are pending, but using cefepime empirically is not unreasonable. Ideally we would switch her to cipro 750mg po bid if the isolate is sensitive. Regardless, I would not treat her more than 7 days of abx total (end date would be 03/05/25). Thank you for the consult referral. ID will sign off for now. Please call with any questions or should her clinical course change. History of Present Illness History of Present Illness Ms. Mathews is seen today for a presumed complicated UTI. She is a poor historian and did not answer most questions beyond limited yes and no. She was brought to the ED at [facility] on 02/27/25 with N/V and melena in the setting of abdominal pain. CT imaging showed a 5 x 8mm stone in her right ureter with some associated mild hydronephrosis. She was started on empiric abx with cefepime and taken to the OR by Urology on 03/01/25 for stent placement. Prior to admission she had apparently been diagnosed with a UTI and given cefpodoxime. Cultures now show 30K of P aeruginosa, but has had no fevers or leukocytosis. Today she is awake and confused. She denies any pain or dysuria. She also denies any N/V, melena, or diarrhea, but also states she has no appetite. No further details on her history can be elucidated. Allergies Allergy/AdvReac Type Severity Reaction Status Date / Time pollen extracts Allergy Mild RUNNY NOSE Verified 02/27/25 16:48 Penicillins Allergy Unknown HAPPENED A Verified 02/27/25 16:44 LONG TIME AGO. lisinopril AdvReac Intermediate Cough Verified 02/27/25 16:48 oxycodone AdvReac Intermediate nausea, Verified 02/27/25 16:44 constipation, "didn't feel right" Home Medications Medication Instructions Recorded Confirmed Type metoprolol succinate 25 mg 25 mg PO QAM 02/23/20 02/27/25 History tablet,extended release 24 hr (Toprol XL) rosuvastatin 20 mg tablet (Crestor) 20 mg PO QAM 02/23/20 02/27/25 History psyllium husk 0.4 gram capsule 0.4 g PO DAILY PRN Constipation 09/27/20 02/27/25 History (Metamucil) acetaminophen 650 mg 650 mg PO TID PRN Pain 11/02/20 02/27/25 History tablet,extended release amlodipine 5 mg tablet 2.5 mg PO QAM 07/02/23 02/27/25 History escitalopram oxalate 10 mg tablet 10 mg PO QAM 07/02/23 02/27/25 History tramadol 50 mg tablet 50 mg PO Q6H PRN pain #30 tabs 10/16/24 02/27/25 Rx meloxicam 15 mg tablet 15 mg PO DAILY #30 tabs 01/13/25 02/27/25 Rx amitriptyline 10 mg tablet 10 mg PO HS 02/27/25 02/27/25 History cefpodoxime 100 mg tablet 100 mg PO BID 02/27/25 02/27/25 History cetirizine 10 mg tablet (Zyrtec) 10 mg PO DAILY 02/27/25 02/27/25 History cyanocobalamin (vitamin B-12) 1,000 mcg sublingual DAILY 02/27/25 02/27/25 History 1,000 mcg sublingual tablet famotidine 20 mg tablet 20 mg PO BID 02/27/25 02/27/25 History fluticasone propionate 50 2 spray intranasal DAILY 02/27/25 02/27/25 History mcg/actuation nasal spray,suspension melatonin 10 mg chewable tablet 20 mg PO HS 02/27/25 02/27/25 History nystatin 100,000 unit/gram topical 1 applic topical TID PRN UNDER 02/27/25 02/27/25 History powder (Klayesta) BREASTS NEEDED omeprazole 20 mg tablet,delayed 20 mg PO DAILY 02/27/25 02/27/25 History release polyethylene glycol 3350 17 17 g PO DAILY PRN Constipation 02/27/25 02/27/25 History gram/dose oral powder (Miralax) potassium citrate 10 mEq (1,080 10 meq PO QAM 02/27/25 02/27/25 History mg) tablet,extended release Patient History Medical History Herniated intervertebral disc of lumbar spine Fracture of left ankle, lateral malleolus mechanical fall 07/2016 resulting in left ankle/foot and right shoulder inj uries, non-displaced left lateral malleous fracture per 08/01/20 x-ray- ortho monitoring/recommend boot x 3-4 weeks/no surgical intervention planned at this time History of kidney stones Osteoarthritis Chronic kidney disease stage III GERD (gastroesophageal reflux disease) + breakthrough symptoms History of melanoma right calf and foot Macular degeneration Anxiety and depression Tremor of both hands occasional Surgical History History of lumbar laminectomy L4 -L5 History of cardiac cath 2017- no stents (attempts to obtain official report unsuccesful) History of cataract surgery [place]OL[place]13[place] [facility] [place]: [place]29[place] [facility] [place] of repair of rotator cuff RT History of lithotripsy MULTIPLE History of cystoscopy MULTIPLE History of esophagogastroduodenoscopy (EGD) History of colonoscopy H/O total hysterectomy History of tonsillectomy Family History Other No significant family history Social History Smoking Status: Former smoker Tobacco Type: Cigarettes Cigarettes Per Day: 2-4 Cigarettes a day.; Second Hand Exposure: No; Do You Dip or Chew Tobacco: No; Hx Alcohol Use: Yes Alcohol type: wine Hx Substance Use: No Preferred Language: [place]i Communication Ability: Effective 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 Beliefs That Will Affect Care: None marital status: / Current Living Situation: Alone Feels Safe at Home: Yes Assistive Devices: Walker Review of Systems Gen NO fevers HEENT NO CAMPUZANO or sore throat Resp No SOB or cough CV No chest pain GI no N/V or diarrhea, but endorses loss of appetite No dysuria Ext No LE edema MSK nO joint pains Derm No rash Physical Exam Gen- Chronically ill appearing HEENT- NC AT Resp- Normal respirations on room air Derm- No rash Ext- No LE edema Neuro- Alert, but not oriented at all Results & Data Vital Signs (Past 12 Hours) Vital Signs Temp Pulse Pulse Pulse Resp BP BP 03/02/25 10:52 36.5 C 75 20 155/87 H 03/02/25 08:31 162/70 H 03/02/25 07:43 36.6 C 75 16 03/02/25 07:00 114 H 03/02/25 03:45 36.9 C 67 18 159/77 H Pulse Ox O2 Del Method 03/02/25 10:52 97 Room Air 03/02/25 08:31 03/02/25 07:43 94 Room Air 03/02/25 07:00 03/02/25 03:45 91 Room Air Laboratory Results Na 139 Creatinine 0.94 BUN 17 WBC 8.53 -> 9.03 Hgb 12.5 Platelets 283 UA >50 WBC, 6-[address] abdomen/pelvis from 02/27/25 reviewed by me: right sided 5 x 8 cm sized ureteral stone with mild hydronephrosis Urine culture 02/28/25 with 30K Pseudomonas
--- NOTE | 2025-03-02 16:39 | CT Scan Report ---
INDICATION: Altered mental status. COMPARISON: CT from 02/28/2025 TECHNIQUE: Axial CT images of the head were obtained without IV contrast. Coronal and sagittal reformations were reviewed. FINDINGS: Borges-white differentiation is relatively preserved. No mass, mass effect or midline shift. Chronic ischemic white matter changes. No evidence of acute large territorial infarction or acute intracranial hemorrhage. Ventricles appear normal in size. Basal cisterns are patent. No depressed calvarial fracture. IMPRESSION: No acute intracranial process. Electronically signed by Mk Espinosa 03-02-2025 4:36 PM
--- NOTE | 2025-03-02 17:46 | Hospitalist Progress Note ---
Date of Service March 02, 2025 Assessment & Plan (1) Complicated UTI (urinary tract infection): Plan per previous hospitalist notes with addendum: Patient is a 84-year-old female with past medical history significant for hypertension, CKD, hyperparathyroidism, GERD, hyperlipidemia, MDD, B12 deficiency, kidney stones, OA, osteoporosis who was admitted for a drug- resistant UTI. Patient also noting that she has been having black stools, abdominal pain and nausea and vomiting. Complicated UTI Right ureteral stone With mild hydronephrosis Pt with outpt urine cx from 02/13/25 that grew pseudomonas resistant to the fluoroquinolones but susceptible to cefepime States that her pcp prescribed her the medication cefpodoxime proxetil which she states it took a week for her pharmacy to get, and had one dose INSTRUCTIONAL COACH Repeat UA pending IV Cefepime Follow repeat urine sample 02/28 outpatient urine culture: Pseudomonoas, R to fluoroquinolines repeat urine culture: pending Urologist consulted- for ureteral stent placement Sunday ID consulted continue IV Cefepime 03/01 Afebrile Repeat urine culture: Pending Currently on IV cefepime, awaiting ID recommendations for antibiotic regimen Status post right ureteral stent placement today by Dr. Reece Dietrich Strain urine Will need urology follow-up for stent removal in 1 to 2 weeks 03/02 Afebrile Urine culture growing Pseudomonas ID consulted, recommend to continue cefepime, and transition to p.o. Cipro belle ntually Might need to avoid Cipro as patient is currently having delirium, likely hospital related Patient to follow-up with urology for evaluation of ureteral stent and definitive management of ureteral stone Melena Possible GI Bleed Pt states she's been having abd pain with black stools, N/V KUB ordered in the ED FOBT pending CT abd/pelvis pending Hgb stable at 12.6 PRN antiemetics Follow H/H, consider GI consult in AM 02/28 Hg baseline 13, now 11 GI consulted, endoscopy this week after Urology procedures completed Protonix IV BID stop Meloxicam 03/01 No recurrence of melena while inpatient Hemoglobin remaining at 11 Continue Protonix IV twice daily Possible upper GI endoscopy this week per GI service 03/02 Hemoglobin remaining stable Continue Protonix IV twice daily Possible upper GI endoscopy tomorrow Recurrent falls CT head: No acute intracranial hemorrhage, midline shift, intracranial mass, hydrocephalus, territorial ischemia or abnormal extra-axial collection. Involutional changes with chronic microvascular ischemic disease. The calvarium is intact. The paranasal sinuses, mastoid air cells, and middle ear cavities are clear. IMPRESSION: No acute intracranial abnormality or calvarial fracture. Lumbar spine: No acute fracture or subluxation. check Ortho vital signs will need echo, Zio patch monitor in Tele 03/01 Orthostatic vital signs pending Telemetry: No arrhythmias so far PT OT evaluation 03/02 CT head negative for acute process surveillance system monitor no arrhythmia Check echocardiogram check orthostatic vital signs Continue telemetry monitoring Continue other home meds as ordered Diet: clears, NPO after midnight DVT prophylaxis: SCDs Dispo: pending, lives alone, PT/OT eval Admission and Anticipated Discharge Date Admission Date: February 27, 2025 Subjective Seen resting in bed, sitting up, awake and alert Seems to be confused today Not in distress, smiling States she feels okay overall still having some right flank discomfort, cannot tell if she is having hematuria Denies nausea or vomiting, chills Has some epigastric discomfort No other new symptoms Review of Systems Review of Systems: all noted and negative except for above Physical Exam Physical Exam: General- confused, not in distress, speaks in sentences with no effort or accessory muscle use Eyes- anicteric Neck- no JVD Lungs- clear breath sounds bilaterally, no rales/wheezes Heart- normal rate, regular rhythm; no murmurs Abdomen- normal bowel sounds, nondistended, soft, nontender Extremities- no pretibial edema, no calf tenderness Neuro- alert, oriented x 3; no gross focal neurologic deficits Skin- warm & dry Results & Data Results & Data Vital Signs (Past 12 Hours) Vital Signs Temp Pulse Pulse Resp BP BP Pulse Ox 03/02/25 16:07 84 03/02/25 10:52 36.5 C 75 20 155/87 H 97 03/02/25 08:31 162/70 H 03/02/25 07:43 36.6 C 75 16 94 03/02/25 07:00 114 H O2 Del Method 03/02/25 16:07 03/02/25 10:52 Room Air 03/02/25 08:31 03/02/25 07:43 Room Air 03/02/25 07:00 all noted and reviewed including below
[2025-03-02] MEDS ORDERED: PHA DELIRIUM CONSULT PRN (22:19)
[2025-03-03 06:20] LABS: Basophils # (auto) 0.08 K/uL (0.00-0.20); Basophils % (auto) 0.9 %; Eosinophils # (auto) 0.34 K/uL (0.00-0.50); Eosinophils % (auto) 3.8 %; Hematocrit (blood only) 35.3 % (37.0-47.0); Hemoglobin 11.9 g/dl (12.0-16.0); Immature Granulocytes # (auto) 0.07 K/uL (0.01-0.20); Immature Granulocytes % (auto) 0.8 %; Lymphocytes # (auto) 1.44 K/uL (1.20-3.40); Lymphocytes % (auto) 16.2 %; Mean Corpuscular Hemoglobin 31.6 pg (25.0-34.0); Mean Corpuscular Hgb Conc 33.7 g/dL (32.0-36.0); Mean Corpuscular Volume 93.6 fL (80.0-100.0); Mean Platelet Volume 9.4 fL (9.4-12.4); Monocytes # (auto) 0.63 K/uL (0.11-0.59); Monocytes % (auto) 7.1 %; Neutrophils # (auto) 6.34 K/uL (1.40-6.50); Neutrophils % (auto) 71.2 %; Platelet Count 277 K/uL (130-400); RDW Coefficient of Variation 12.5 % (11.5-14.5); RDW Standard Deviation 42.8 fL (36.4-46.3); Red Blood Count 3.77 M/uL (4.20-5.40)
[2025-03-03 06:53] LABS: BUN Creatinine Ratio 20.7 (10-20); Calcium 9.9 mg/dl (8.6-10.3); Creatinine Clr Calc Pharmacy 39.9 ml/min; Magnesium 2.1 mg/dl (1.7-2.4)
--- NOTE | 2025-03-03 11:10 | Gastroenterology Progress Note ---
Date of Service March 03, 2025 Assessment & Plan (1) Heme positive stool: Plan: - continue to follow hgb/hct. - continue with protonix 40mg IV bid. - In light of no current active GI bleeding and her current mentation, will hold off on EGD at this time. - further recommendations to follow, see Dr. Mcgarry's append. Admission and Anticipated Discharge Date Admission Date: February 27, 2025 Supervising Physician Co-Signing Physician Notes I saw and examined this patient with our nurse practitioner and agree with her assessment and plan. Still confused today unclear etiology workup in progress. Possible abdominal distention on exam today without rebound without guarding. Recommend an obstruction series today. Endoscopy until mental status improved. No overt bleeding and hemoglobin stable. Subjective patient still having confusion today. she is not answering questions appropriately. no signs of GI bleeding per nursing. 03/03 hgb 11.9 (previously 12.5). no new GI concerns per nursing. Physical Exam Gastrointestinal (Abdomen): normal bowel sounds, soft, nontender, no hepatosplenomegaly Results & Data Results & Data Vital Signs (Past 12 Hours) Vital Signs Temp Pulse Resp BP Pulse Ox O2 Del Method 03/03/25 09:15 Room Air 03/03/25 07:28 97.9 F 96 H 16 141/75 H 95 Room Air Coding Level of Care Code 11980 SUB INP/OBS CARE 12/20MIN Diagnoses Heme positive stool R19.5
--- NOTE | 2025-03-03 15:58 | XRay Report ---
KUB HISTORY: abdominal distention COMPARISON STUDY: 02/27/2025 FINDINGS: Interval right ureteral stent appears well positioned. Stable right upper quadrant surgical clips and lower lumbar metallic fusion. There is moderate retained stool. No bowel obstruction seen. Stable small splenic artery aneurysm. IMPRESSION: No acute findings. ACT 112: Negative or not required by law. The above report was generated using voice recognition software. It may contain grammatical, syntax o r spelling errors. Electronically signed by: Fuad Trujillo M.D. 03/03/2025 3:57 PM
[2025-03-03] MEDS: POLYETHYLENE (MIRALAX) 17 GM PACK PO PRN (17:26)
--- NOTE | 2025-03-03 18:43 | Hospitalist Progress Note ---
Date of Service March 03, 2025 Assessment & Plan (1) Complicated UTI (urinary tract infection): Plan per previous hospitalist notes with addendum: Patient is a 84-year-old female with past medical history significant for hypertension, CKD, hyperparathyroidism, GERD, hyperlipidemia, MDD, B12 deficiency, kidney stones, OA, osteoporosis who was admitted for a drug- resistant UTI. Patient also noting that she has been having black stools, abdominal pain and nausea and vomiting. Complicated UTI Right ureteral stone With mild hydronephrosis Pt with outpt urine cx from 02/13/25 that grew pseudomonas resistant to the fluoroquinolones but susceptible to cefepime States that her pcp prescribed her the medication cefpodoxime proxetil which she states it took a week for her pharmacy to get, and had one dose CABLEMAN Repeat UA pending IV Cefepime Follow repeat urine sample outpatient urine culture: Pseudomonoas, R to fluoroquinolines repeat urine culture: Pseudomonas blood cultures: Pending 03/01 Status post right ureteral stent placement today by Dr. Reece Dietrich ID consulted, recommend to continue cefepime, and transition to p.o. Cipro eventually Might need to avoid Cipro as patient is currently having delirium, likely hospital related Patient to follow-up with urology for evaluation of ureteral stent and definitive management of ureteral stone -- remains afebrile Continue IV cefepime Melena Possible GI Bleed Pt states she's been having abd pain with black stools, N/V 03/03 Hemoglobin remaining stable Continue Protonix IV twice daily Possible upper GI endoscopy once delirium resolves Delirium patient started to have confusion yesterday repeat CT head: No acute process Usual amitriptyline, escitalopram, cetirizine held for now Not receiving narcotics or benzodiazepines today, patient seems to be less confused, trying to answer more questions appropriately In the evening started to be more confused again continue delirium prevention strategies Blood cultures ordered Recurrent falls CT head: No acute intracranial hemorrhage, midline shift, intracranial mass, hydrocephalus, territorial ischemia or abnormal extra-axial collection. Involutional changes with chronic microvascular ischemic disease. The calvarium is intact. The paranasal sinuses, mastoid air cells, and middle ear cavities are clear. IMPRESSION: No acute intracranial abnormality or calvarial fracture. Lumbar spine: No acute fracture or subluxation. CT head negative for acute process residential monitor no arrhythmia Echocardiogram: Moderate concentric LVH, left ventricular motion is normal, EF more than 70%, grade 1 Dysfunction, no significant valvular disease, intra-atrial septum is intact, no intra-atrial shunt check orthostatic vital signs Continue telemetry monitoring patient's family reports she also has history of vertigo which could be contributing to the falls PT OT evaluation Continue other home meds as ordered DVT prophylaxis: SCDs, In light of possible GI bleed Dispo: pending, lives alone, PT/OT eval Will likely need longterm facility Admission and Anticipated Discharge Date Admission Date: February 27, 2025 Subjective follow-up for UTI, right ureteral stone, etc seen resting in bed, sitting up, having lunch, awake and alert in good spirits, smiling Oriented to person and place States she feels okay overall Mild right flank discomfort No problems with urination, no report of hematuria No report of overt melena or hematochezia Denies fevers or chills Review of Systems Review of Systems: all noted and negative except for above Physical Exam Physical Exam: General- oriented x to person and place, not in distress, speaks in sentences with no effort or accessory muscle use Eyes- anicteric Neck- no JVD Lungs- clear breath sounds bilaterally, no rales/wheezes Heart- normal rate, regular rhythm; no murmurs Abdomen- normal bowel sounds, nondistended, soft, nontender Extremities- no pretibial edema, no calf tenderness Neuro- alert, oriented x 2; no gross focal neurologic deficits Skin- warm & dry Results & Data Results & Data Vital Signs (Past 12 Hours) Vital Signs Temp Pulse Pulse Resp BP BP Pulse Ox 03/03/25 15:41 36.6 C 87 20 148/70 H 94 03/03/25 15:01 116 H 129/73 03/03/25 15:00 102 H 117/68 03/03/25 14:59 101 H 157/81 H 03/03/25 11:13 36.5 C 80 16 154/87 H 96 03/03/25 09:15 03/03/25 07:28 36.6 C 96 H 16 141/75 H 95 O2 Del Method 03/03/25 15:41 Room Air 03/03/25 15:01 03/03/25 15:00 03/03/25 14:59 03/03/25 11:13 Room Air 03/03/25 09:15 Room Air 03/03/25 07:28 Room Air all noted and reviewed including below
[2025-03-03] MEDS ORDERED: OLANZapine 10 MG/2.1 ML SDV IM PRN (19:44)
[2025-03-04 07:24] LABS: Basophils # (auto) 0.09 K/uL (0.00-0.20); Eosinophils # (auto) 0.44 K/uL (0.00-0.50); Eosinophils % (auto) 4.7 %; Hematocrit (blood only) 36.1 % (37.0-47.0); Hemoglobin 12.6 g/dl (12.0-16.0); Immature Granulocytes # (auto) 0.07 K/uL (0.01-0.20); Immature Granulocytes % (auto) 0.7 %; Mean Corpuscular Hemoglobin 32.1 pg (25.0-34.0); Mean Corpuscular Hgb Conc 34.9 g/dL (32.0-36.0); Mean Corpuscular Volume 91.9 fL (80.0-100.0); Mean Platelet Volume 9.3 fL (9.4-12.4); Monocytes # (auto) 0.73 K/uL (0.11-0.59); Monocytes % (auto) 7.8 %; Neutrophils # (auto) 6.63 K/uL (1.40-6.50); Neutrophils % (auto) 70.8 %; Platelet Count 281 K/uL (130-400); RDW Coefficient of Variation 12.4 % (11.5-14.5); RDW Standard Deviation 41.6 fL (36.4-46.3); Red Blood Count 3.93 M/uL (4.20-5.40); White Blood Count 9.36 K/ul (4.8-10.8)
[2025-03-04 07:54] LABS: BUN Creatinine Ratio 26.7 (10-20); Calcium 10.2 mg/dl (8.6-10.3); Creatinine Clr Calc Pharmacy 40.4 ml/min; Magnesium 2.1 mg/dl (1.7-2.4); Potassium 3.9 mmol/L (3.5-5.1)
--- NOTE | 2025-03-04 08:45 | Hospitalist Progress Note ---
Date of Service March 04, 2025 Assessment & Plan (1) Complicated UTI (urinary tract infection): Plan per previous hospitalist notes with addendum: Patient is a 84-year-old female with past medical history significant for hypertension, CKD, hyperparathyroidism, GERD, hyperlipidemia, MDD, B12 deficiency, kidney stones, OA, osteoporosis who was admitted for a drug- resistant UTI. Patient also noting that she has been having black stools, abdominal pain and nausea and vomiting. Complicated UTI Right ureteral stone With mild hydronephrosis Pt with outpt urine cx from 02/13/25 that grew pseudomonas resistant to the fluoroquinolones but susceptible to cefepime States that her pcp prescribed her the medication cefpodoxime proxetil which she states it took a week for her pharmacy to get, and had one dose [employer] Repeat UA pending IV Cefepime Follow repeat urine sample outpatient urine culture: Pseudomonoas, R to fluoroquinolines repeat urine culture: Pseudomonas, as above blood cultures: Pending 03/01 Status post right ureteral stent placement by Dr. Reece Dietrich (urology) Patient to follow-up with urology for evaluation of ureteral stent and definitive management of ureteral stone ID consulted, recommend to continue cefepime, and transition to p.o. Cipro eventually if not resistant to currently having delirium, likely hospital related -- remains afebrile Continued IV cefepime blood cultures ordered 03/03 by previous hospitalist - pending 03/04 Contacted ID to see if should switch abx from cefepime given changed mental status (per previous hospitalist pt has been confused/ delirious since stent placed) - ID recommends to stop abx Melena Possible GI Bleed Pt states she's been having abd pain with black stools, N/V 03/03 Hemoglobin remaining stable Continue Protonix IV twice daily Possible upper GI endoscopy once delirium resolves Delirium patient started to have confusion (after stent placed) repeat CT head: No acute process Usual amitriptyline, escitalopram, cetirizine held for now Not receiving narcotics or benzodiazepines 03/03 patient seems to be less confused, trying to answer more questions appropriately In the evening started to be more confused again continue delirium prevention strategies Blood cultures ordered, sitter, zyprexa 03/04 Overnight pt did well per nursing staff currently answers appropriately yes, no, asks for help to sit up Recurrent falls CT head: No acute intracranial hemorrhage, midline shift, intracranial mass, hydrocephalus, territorial ischemia or abnormal extra-axial collection. Involutional changes with chronic microvascular ischemic disease. The calvarium is intact. The paranasal sinuses, mastoid air cells, and middle ear cavities are clear. IMPRESSION: No acute intracranial abnormality or calvarial fracture. Lumbar spine: No acute fracture or subluxation. 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 no arrhythmia Echocardiogram: Moderate concentric LVH, left ventricular motion is normal, EF more than 70%, grade 1 Dysfunction, no significant valvular disease, intra-atrial septum is intact, no intra-atrial shunt check orthostatic vital signs Continue telemetry monitoring patient's family reports she also has history of vertigo which could be contributing to the falls PT OT evaluation Continue other home meds as ordered DVT prophylaxis: SCDs, In light of possible GI bleed Dispo: pending, lives alone, PT/OT eval Will likely need custodial facility Admission and Anticipated Discharge Date Admission Date: February 27, 2025 Subjective Pt seen in follow-up for UTI, right ureteral stone, etc Per previous provider - pt has been confused since she had ureteral stent placed, 1:1 sitter ordered last evening, eflicia Discussed w/ RN at the bedside Pt reportedly confused agitated last evening but then overnight did well This AM pt is awake, able to answer some simple questions. Answers yes, no , does not say any longer sentences denies chest pain, shortness of breath, + suprapubic tenderness Discussed w/ ID mental status change and cefepime - if to switch abx -> recommend to stop abx No report of overt melena or hematochezia Denies fevers or chills Review of Systems Review of Systems: All systems reviewed & are unremarkable except as noted in Subjective Physical Exam Physical Exam: General- WD/WN F in NAD, only answers some simple questions Eyes- anicteric Neck- no JVD Lungs- clear breath sounds bilaterally, no rales/wheezes Heart- normal rate, regular rhythm; no murmurs Abdomen- normal bowel sounds, nondistended, soft, + suprapubic tenderness Extremities- no pretibial edema, moves extremities Neuro- alert, oriented x 2; no facial asymmetry, moves extremities Skin- warm & dry Results & Data Results & Data Vital Signs (Past 12 Hours) Vital Signs Temp Pulse Pulse Resp BP Pulse Ox O2 Del Method 03/04/25 07:41 36.6 C 74 17 126/70 91 Room Air 03/03/25 23:04 Room Air 03/03/25 22:01 105 H Laboratory Results 03/04/25 Range/Units 06:50 WBC 9.36 (4.8-10.8) K/ul RBC 3.93 L (4.20-5.40) M/uL Hgb 12.6 (12.0-16.0) g/dl Hct 36.1 L (37.0-47.0) % MCV 91.9 (80.0-100.0) fL MCH 32.1 (25.0-34.0) pg MCHC 34.9 (32.0-36.0) g/dL RDW Std Deviation 41.6 (36.4-46.3) fL RDW Coeff of Katrin 12.4 (11.5-14.5) % Plt Count 281 (130-400) K/uL MPV 9.3 L (9.4-12.4) fL Immature Gran % (Auto) 0.7 % Neut % (Auto) 70.8 % Lymph % (Auto) 15.0 % Lincoln % (Auto) 7.8 % Eos % (Auto) 4.7 % Baso % (Auto) 1.0 % Neut # (Auto) 6.63 H (1.40-6.50) K/uL Lymph # (Auto) 1.40 (1.20-3.40) K/uL Lincoln # (Auto) 0.73 H (0.11-0.59) K/uL Eos # (Auto) 0.44 (0.00-0.50) K/uL Baso # (Auto) 0.09 (0.00-0.20) K/uL Immature Gran # (Auto) 0.07 (0.01-0.20) K/uL Sodium 137 (136-145) mmol/L Potassium 3.9 (3.5-5.1) mmol/L Chloride 105 (98-107) mmol/L Carbon Dioxide 27 (21-32) mmol/L Anion Gap 5 (3-11) BUN 23 (6-23) mg/dl Creatinine 0.86 (0.6-1.2) mg/dl Est Cr Clr Drug Dosing 40.4 ml/min eGFR 66.99 BUN/Creatinine Ratio 26.7 H (10-20) Glucose 91 (70-99(Fasting)) mg/dl Calcium 10.2 (8.6-10.3) mg/dl Magnesium 2.1 (1.7-2.4) mg/dl Medications Administered Current Inpatient Medications Acetaminophen (Acetaminophen 325 Mg Tab) 650 mg PO TID PRN PRN Reason: Pain Stop: 03/29/25 21:24 Last Admin: 03/03/25 20:43 Dose: 650 mg Amitriptyline HCl (Amitriptyline Hcl 10 Mg Tab) 10 mg PO HS BENNY Stop: 03/29/25 21:29 Last Admin: 03/01/25 21:09 Dose: 10 mg Amlodipine Besylate (Amlodipine Besylate 5 Mg Tab) 5 mg PO QAM BENNY Stop: 03/30/25 08:59 Last Admin: 03/03/25 09:02 Dose: 5 mg Cetirizine HCl (Cetirizine Hcl 10 Mg Tablet) 10 mg PO DAILY BENNY Stop: 03/30/25 08:59 Last Admin: 03/02/25 08:31 Dose: 10 mg Cyanocobalamin (Cyanocobalamin (B-12) 500 Mcg Tablet) 1,000 mcg PO DAILY BENNY Stop: 03/30/25 08:59 Last Admin: 03/03/25 09:02 Dose: 1,000 mcg Escitalopram Oxalate (Escitalopram Oxalate 10 Mg Tab) 10 mg PO QAM BENNY Stop: 03/30/25 08:59 Last Admin: 03/02/25 08:30 Dose: 10 mg Fluticasone Propionate (Fluticasone Propionate Na Spr 16 Gm Btl) 2 sprays NA DAILY BENNY Stop: 03/30/25 08:59 Last Admin: 03/03/25 09:02 Dose: 2 sprays Hydralazine HCl (Hydralazine Hcl 20 Mg/Ml Vial) 5 mg IV Q6H PRN PRN Reason: systolic bp > 160 Stop: 03/30/25 11:46 Last Admin: 03/01/25 05:05 Dose: 5 mg Pantoprazole Sodium (Protonix) 40 mg in 10 mls @ 5 mls/min IV BID BENNY Stop: 03/30/25 08:59 Last Admin: 03/03/25 20:37 Dose: 5 mls/min Lactobacillus Acidophilus (Advanced Probiotic 625 Mg Capsule) 1,250 mg PO DAILY [facility] Stop: 03/30/25 08:59 Last Admin: 03/03/25 09:02 Dose: 1,250 mg Lidocaine (L[facility]ocaine 5% 1 Patch) [facility] Stop: 03/29/25 16:59 Last Admin: 03/03/25 09:03 Dose: 1 patch Melatonin (Melatonin 3 Mg Tab) 9 mg PO HS PRN PRN Reason: Sleep Stop: 03/29/25 21:24 Last Admin: 03/03/25 20:37 Dose: 9 mg Metoprolol Succinate (Metoprolol Succ 25mg Ext Rel Tab) [facility] Stop: 03/30/25 08:59 Last Admin: 03/03/25 09:03 Dose: 25 mg Miscellaneous (Remove Lidoderm Patch) 1 each N/A DAILY@2100 [facility] Stop: 03/29/25 20:59 Last Admin: 03/03/25 20:37 Dose: 1 each Nystatin (Nystatin Powder 15gm Btl) 1 appln EXT TID PRN PRN Reason: UNDER BREASTS NEEDED Stop: 03/29/25 21:14 Olanzapine (Olanzapine 10 Mg/2.1 Ml Sdv) 2.5 mg IM Q8H PRN PRN Reason: agitation Stop: 04/02/25 19:44 Ondansetron HCl (Ondansetron Inj 2 Mg/Ml 2 Ml Vial) 4 mg IV Q6H PRN PRN Reason: Nausea And Vomiting Stop: 03/29/25 16:50 Last Admin: 03/01/25 06:09 Dose: 4 mg Polyethylene Glycol (Polyethylene (Miralax) 17 Gm Pack) 17 gm PO DAILY PRN PRN Reason: Constipation Stop: 03/29/25 21:14 Last Admin: 03/03/25 17:26 Dose: 17 gm Potassium Citrate (Potassium Citrate 10 Meq Tab) 10 meq [facility] Stop: 03/30/25 08:59 Last Admin: 03/03/25 09:03 Dose: 10 meq Psyllium Hydrophilic Mucilloid (Psyllium Or Guar Gum Fiber 4gm Packet) 4 gm PO DAILY PRN PRN Reason: Constipation Stop: 03/29/25 21:27 Rosuvastatin Calcium (Rosuvastatin Calcium 20 Mg Tab) [facility] Stop: 03/30/25 08:59 Last Admin: 03/03/25 09:02 Dose: 20 mg
--- NOTE | 2025-03-04 10:51 | Gastroenterology Progress Note ---
Date of Service March 04, 2025 Assessment & Plan (1) Heme positive stool: Plan Still no signs of active GI bleeding. No plans for endoscopic work up until mental status has improved. Admission and Anticipated Discharge Date Admission Date: February 27, 2025 Supervising Physician Co-Signing Physician Notes I saw and examined this patient with our nurse practitioner and agree with her assessment and plan. Since of overt or active GI bleeding hemoglobin stable. We have delayed endoscopic intervention due to recent mental status changes of unclear etiology. Need more clarity as to what the changes are related to. We suggest a neurologic consultation prior to sedation and endoscopy. Subjective patient still has confusion today. she cannot tell me where she is or her name. Only answering "yes" and "okay". spoke with nursing, there has not been any signs of active GI bleeding. KUB 03/03 No acute findings. Physical Exam Gastrointestinal (Abdomen): normal bowel sounds, soft, nontender. Psychiatric: Alert, not oriented. Results & Data Results & Data Vital Signs (Past 12 Hours) Vital Signs Temp Pulse Resp BP Pulse Ox O2 Del Method 03/04/25 07:41 97.9 F 74 17 126/70 91 Room Air 03/03/25 23:04 Room Air Coding Level of Care Code 54100 SUB INP/OBS CARE 12/20MIN Diagnoses Heme positive stool R19.5
[2025-03-04] MEDS ORDERED: PHA DELIRIUM CONSULT PRN (22:50)
[2025-03-05 06:50] LABS: A calco-baum cmplx NotReported Not Detected (NotDetected); Bact fragilis Not Reported Not Detected (NotDetected); Blood Culture Id Panel PCR Panel Negative (NotDetected); C auris Not Reported Not Detected (NotDetected); Calbicans Not Reported Not Detected (NotDetected); Candida glabrata Not Reported Not Detected (NotDetected); Candida krusei Not Reported Not Detected (NotDetected); Cneoformans/gatti Not Reported Not Detected (NotDetected); Cparapsilosis Not Reported Not Detected (NotDetected); E cloacae compx Not Reported Not Detected (NotDetected); Efaecalis Not Reported Not Detected (NotDetected); Efaecium Not Reported Not Detected (NotDetected); Enterobacterales Not Reported Not Detected (NotDetected); Escherichia coli Not Reported Not Detected (NotDetected); H influenzae Not Reported Not Detected (NotDetected); K aerogenes Not Reported Not Detected (NotDetected); Koxytoca Not Reported Not Detected (NotDetected); Kpneumoniae grp Not Reported Not Detected (NotDetected); Lmonocyt Not Reported Not Detected (NotDetected); N meningitidis Not Reported Not Detected (NotDetected); P aeruginosa Not Reported Not Detected (NotDetected); Proteus spp Not Reported Not Detected (NotDetected); Salmonella spp Not Reported Not Detected (NotDetected); Staph lugdunensis Not Reported Not Detected (NotDetected); Staph spp. Not Reported Not Detected (NotDetected); Staphaureus Not Reported Not Detected (NotDetected); Staphepi Not Reported Not Detected (NotDetected); Stenmaltophilia Not Reported Not Detected (NotDetected); Strep agal(GrpB) Not Reported Not Detected (NotDetected); Strep pneum Not Reported Not Detected (NotDetected); Strep pyog (GrpA) Not Reported Not Detected (NotDetected); Strep spp Not Reported Not Detected (NotDetected)
[2025-03-05 07:46] LABS: Basophils # (auto) 0.07 K/uL (0.00-0.20); Basophils % (auto) 0.8 %; Eosinophils # (auto) 0.33 K/uL (0.00-0.50); Eosinophils % (auto) 3.8 %; Hematocrit (blood only) 35.4 % (37.0-47.0); Hemoglobin 12.1 g/dl (12.0-16.0); Immature Granulocytes # (auto) 0.11 K/uL (0.01-0.20); Immature Granulocytes % (auto) 1.3 %; Lymphocytes # (auto) 2.06 K/uL (1.20-3.40); Lymphocytes % (auto) 23.6 %; Mean Corpuscular Hemoglobin 31.9 pg (25.0-34.0); Mean Corpuscular Hgb Conc 34.2 g/dL (32.0-36.0); Mean Corpuscular Volume 93.4 fL (80.0-100.0); Mean Platelet Volume 9.5 fL (9.4-12.4); Neutrophils # (auto) 5.45 K/uL (1.40-6.50); Neutrophils % (auto) 62.5 %; Platelet Count 294 K/uL (130-400); RDW Coefficient of Variation 12.5 % (11.5-14.5); RDW Standard Deviation 42.7 fL (36.4-46.3); Red Blood Count 3.79 M/uL (4.20-5.40); White Blood Count 8.72 K/ul (4.8-10.8)
[2025-03-05 08:30] LABS: BUN Creatinine Ratio 29.1 (10-20); Calcium 10.2 mg/dl (8.6-10.3); Magnesium 2.1 mg/dl (1.7-2.4); Phosphorus 2.6 mg/dl (2.5-4.9); Potassium 4.2 mmol/L (3.5-5.1)
--- NOTE | 2025-03-05 09:53 | Hospitalist Progress Note ---
Date of Service March 05, 2025 Assessment & Plan (1) Complicated UTI (urinary tract infection): Plan per previous hospitalist notes with addendum: Patient is a 84-year-old female with past medical history significant for hypertension, CKD, hyperparathyroidism, GERD, hyperlipidemia, MDD, B12 deficiency, kidney stones, OA, osteoporosis who was admitted for a drug- resistant UTI. Patient also noting that she has been having black stools, abdominal pain and nausea and vomiting. 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 Reece Dietrich (urology) Patient to follow-up with urology for evaluation of ureteral stent and definitive management of ureteral stone ID consulted, recommend to continue cefepime, and transition to p.o. Cipro eventually if not resistant to currently having delirium, likely hospital related -- remains afebrile Continued IV cefepime blood cultures ordered 03/03 by previous hospitalist - grows GPB 03/04 Contacted ID to see if should switch abx from cefepime given changed mental status (per previous hospitalist pt has been confused/ delirious since stent placed) - ID recommends to stop abx 03/05 discussed w/ ID posit blood cultx, however pcr negat. - given no leukocytosis and afebrile - cont. to monitor off abx Melena Possible GI Bleed Pt states she's been having abd pain with black stools, N/V 03/03 Hemoglobin remaining stable Continue Protonix IV twice daily Possible upper GI endoscopy once delirium resolves Delirium patient started to have confusion (after stent placed) repeat CT head: No acute process Usual amitriptyline, escitalopram, cetirizine held for now Not receiving narcotics or benzodiazepines 03/03 patient seems to be less confused, trying to answer more questions appropriately In the evening started to be more confused again continue delirium prevention strategies Blood cultures ordered, felicia dickinson 03/04 Overnight pt did well per nursing staff currently answers appropriately yes, no, asks for help to sit up 03/05 She can tell where she is and what year it is. Tells me the names of her sons and where they live. Does not recall that son David was visiting her yesterday. She is upset that he drove far to see her. Recurrent falls CT head: No acute intracranial hemorrhage, midline shift, intracranial mass, hydrocephalus, territorial ischemia or abnormal extra-axial collection. Involutional changes with chronic microvascular ischemic disease. The calvarium is intact. The paranasal sinuses, mastoid air cells, and middle ear cavities are clear. IMPRESSION: No acute intracranial abnormality or calvarial fracture. Lumbar spine: No acute fracture or subluxation. 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 no arrhythmia Echocardiogram: Moderate concentric LVH, left ventricular motion is normal, EF more than 70%, grade 1 Dysfunction, no significant valvular disease, intra-atrial septum is intact, no intra-atrial shunt check orthostatic vital signs Continue telemetry monitoring patient's family reports she also has history of vertigo which could be contributing to the falls PT OT evaluation Continue other home meds as ordered DVT prophylaxis: SCDs, In light of possible GI bleed Dispo: pending, lives alone, PT/OT eval Will likely need assisted facility Admission and Anticipated Discharge Date Admission Date: February 27, 2025 Subjective Pt seen in follow-up for UTI, right ureteral stone, etc Per previous provider - pt has been confused since she had ureteral stent placed Discussed w/ RN at the bedside This AM pt is awake, able to answer where she is and what year it is. Tells me the names of her sons. Son David was visiting her last evening and she does not remember that. denies chest pain, shortness of breath, denies any abd. pain Yesterday discussed w/ ID mental status change and cefepime - if to switch abx - > recommended to stop abx No report of overt melena or hematochezia no fevers blood cultx posit. for GPB, pcer negative - discussed w/ ID - given no leukocytosis and afebrile - cont. to monitor off abx Review of Systems Review of Systems: All systems reviewed & are unremarkable except as noted in Subjective Physical Exam Physical Exam: General- WD/WN F in NAD, only answers some simple questions Eyes- anicteric Neck- no JVD Lungs- clear breath sounds bilaterally, no rales/wheezes Heart- normal rate, regular rhythm; no murmurs Abdomen- normal bowel sounds, nondistended, soft, nontender Extremities- no pretibial edema, moves extremities Neuro- alert, oriented x 2; no facial asymmetry, moves extremities Skin- warm & dry Results & Data Results & Data Vital Signs (Past 12 Hours) Vital Signs Temp Pulse Resp BP Pulse Ox O2 Del Method 03/05/25 07:28 36.7 C 61 18 135/76 95 Room Air 03/04/25 23:35 36.5 C 70 16 122/74 94 Room Air 03/04/25 22:35 Room Air Laboratory Results 03/05/25 03/03/25 Range/Units 07:18 19:05 WBC 8.72 (4.8-10.8) K/ul RBC 3.79 L (4.20-5.40) M/uL Hgb 12.1 (12.0-16.0) g/dl Hct 35.4 L (37.0-47.0) % MCV 93.4 (80.0-100.0) fL MCH 31.9 (25.0-34.0) pg MCHC 34.2 (32.0-36.0) g/dL RDW Std Deviation 42.7 (36.4-46.3) fL RDW Coeff of Katrin 12.5 (11.5-14.5) % Plt Count 294 (130-400) K/uL MPV 9.5 (9.4-12.4) fL Immature Gran % (Auto) 1.3 % Neut % (Auto) 62.5 % Lymph % (Auto) 23.6 % [place] % (Auto) 8.0 % Eos % (Auto) 3.8 % Baso % (Auto) 0.8 % Neut # (Auto) 5.45 (1.40-6.50) K/uL Lymph # (Auto) 2.06 (1.20-3.40) K/uL [place]age # (Auto) 0.70 H (0.11-0.59) K/uL Eos # (Auto) 0.33 (0.00-0.50) K/uL Baso # (Auto) 0.07 (0.00-0.20) K/uL Immature Gran # (Auto) 0.11 (0.01-0.20) K/uL Sodium 137 (136-145) mmol/L Potassium 4.2 (3.5-5.1) mmol/L Chloride 105 (98-107) mmol/L Carbon Dioxide 27 (21-32) mmol/L Anion Gap 5 (3-11) BUN 23 (6-23) mg/dl Creatinine 0.79 (0.6-1.2) mg/dl Est Cr Clr Drug Dosing 44.0 ml/min eGFR 74.17 BUN/Creatinine Ratio 29.1 H (10-20) Glucose 91 (70-99(Fasting)) mg/dl Calcium 10.2 (8.6-10.3) mg/dl Phosphorus 2.6 (2.5-4.9) mg/dl Magnesium 2.1 (1.7-2.4) mg/dl Bld Cult ID Panel PCR PCR Panel Negative (NotDetected) Medications Administered Current Inpatient Medications Acetaminophen (Acetaminophen 325 Mg Tab) 650 mg PO TID PRN PRN Reason: Pain Stop: 03/29/25 21:24 Last Admin: 03/04/25 23:03 Dose: 650 mg Amitriptyline HCl (Amitriptyline Hcl 10 Mg Tab) 10 mg PO HS BENNY Stop: 03/29/25 21:29 Last Admin: 03/01/25 21:09 Dose: 10 mg Amlodipine Besylate (Amlodipine Besylate 5 Mg Tab) 5 mg PO QAM BENNY Stop: 03/30/25 08:59 Last Admin: 03/05/25 09:02 Dose: 5 mg Cetirizine HCl (Cetirizine Hcl 10 Mg Tablet) 10 mg PO DAILY BENNY Stop: 03/30/25 08:59 Last Admin: 03/02/25 08:31 Dose: 10 mg Cyanocobalamin (Cyanocobalamin (B-12) 500 Mcg Tablet) 1,000 mcg PO DAILY BENNY Stop: 03/30/25 08:59 Last Admin: 03/05/25 09:02 Dose: 1,000 mcg Escitalopram Oxalate (Escitalopram Oxalate 10 Mg Tab) 10 mg PO QAM [facility]ENNY Stop: 03/30/25 08:59 Last Admin: 03/02/25 08:30 Dose: 10 mg Fluticasone Propionate (Fluticasone Propionate Na Spr 16 Gm Btl) [address] [facility] Stop: 03/30/25 08:59 Last Admin: 03/05/25 09:02 Dose: Not Given Hydralazine HCl (Hydralazine Hcl 20 Mg/Ml Vial) 5 mg IV Q6H PRN PRN Reason: systolic bp > 160 Stop: 03/30/25 11:46 Last Admin: 03/01/25 05:05 Dose: 5 mg Pantoprazole Sodium (Protonix) 40 mg in 10 mls @ 5 mls/min IV BID [facility] Stop: 03/30/25 08:59 Last Admin: 03/05/25 09:41 Dose: 5 mls/min Lactobacillus Acidophilus (Advanced Probiotic 625 Mg Capsule) 1,[address] [facility] Stop: 03/30/25 08:59 Last Admin: 03/05/25 09:01 Dose: 1,250 mg Lidocaine (Lidocaine 5% 1 Patch) [address] [facility] Stop: 03/29/25 16:59 Last Admin: 03/05/25 09:02 Dose: 1 patch Melatonin (Melatonin 3 Mg Tab) 9 mg PO HS PRN PRN Reason: Sleep Stop: 03/29/25 21:24 Last Admin: 03/04/25 20:28 Dose: 9 mg Metoprolol Succinate (Metoprolol Succ 25mg Ext Rel Tab) [address] [facility] Stop: 03/30/25 08:59 Last Admin: 03/05/25 09:02 Dose: 25 mg Miscellaneous (Remove Lidoderm Patch) 1 each N/A DAILY@2100 [facility] Stop: 03/29/25 20:59 Last Admin: 03/04/25 20:28 Dose: 1 each Nystatin (Nystatin Powder 15gm Btl) 1 appln EXT TID PRN PRN Reason: UNDER BREASTS NEEDED Stop: 03/29/25 21:14 Olanzapine (Olanzapine 10 Mg/2.1 Ml Sdv) 2.5 mg IM Q8H PRN PRN Reason: agitation Stop: 04/02/25 19:44 Ondansetron HCl (Ondansetron Inj 2 Mg/Ml 2 Ml Vial) 4 mg IV Q6H PRN PRN Reason: Nausea And Vomiting Stop: 03/29/25 16:50 Last Admin: 03/01/25 06:09 Dose: 4 mg Polyethylene Glycol (Polyethylene (Miralax) 17 Gm Pack) 17 gm PO DAILY PRN PRN Reason: Constipation Stop: 03/29/25 21:14 Last Admin: 03/03/25 17:26 Dose: 17 gm Potassium Citrate (Potassium Citrate 10 Meq Tab) [facility] [place]: 03/30/25 08:59 Last Admin: 03/05/25 09:01 Dose: 10 meq Psyllium Hydrophilic Mucilloid (Psyllium Or Guar Gum Fiber 4gm Packet) 4 gm PO DAILY PRN PRN Reason: Constipation Stop: 03/29/25 21:27 Rosuvastatin Calcium (Rosuvastatin Calcium 20 Mg Tab) 20 mg PO [facility] Stop: 03/30/25 08:59 Last Admin: 03/05/25 09:02 Dose: 20 mg
[2025-03-05] MEDS: SODIUM CHLORIDE 0.9% 1,000 ML IV ONE (16:53)
[2025-03-05] MEDS: THIAMINE HCL 200 MG in SODIUM CHLORIDE 0.9% 50 ML IV ONE (16:58)
[2025-03-06 07:51] LABS: Basophils # (auto) 0.06 K/uL (0.00-0.20); Basophils % (auto) 0.6 %; Eosinophils # (auto) 0.26 K/uL (0.00-0.50); Eosinophils % (auto) 2.8 %; Hematocrit (blood only) 34.7 % (37.0-47.0); Hemoglobin 11.6 g/dl (12.0-16.0); Immature Granulocytes % (auto) 1.1 %; Lymphocytes # (auto) 2.02 K/uL (1.20-3.40); Lymphocytes % (auto) 21.8 %; Mean Corpuscular Hemoglobin 31.9 pg (25.0-34.0); Mean Corpuscular Hgb Conc 33.4 g/dL (32.0-36.0); Mean Corpuscular Volume 95.3 fL (80.0-100.0); Mean Platelet Volume 9.7 fL (9.4-12.4); Monocytes # (auto) 0.59 K/uL (0.11-0.59); Monocytes % (auto) 6.4 %; Neutrophils # (auto) 6.22 K/uL (1.40-6.50); Neutrophils % (auto) 67.3 %; Platelet Count 285 K/uL (130-400); RDW Coefficient of Variation 12.3 % (11.5-14.5); RDW Standard Deviation 43.2 fL (36.4-46.3); Red Blood Count 3.64 M/uL (4.20-5.40); White Blood Count 9.25 K/ul (4.8-10.8)
[2025-03-06 08:16] LABS: BUN Creatinine Ratio 25.6 (10-20); Calcium 9.8 mg/dl (8.6-10.3); Creatinine Clr Calc Pharmacy 39.2 ml/min; Phosphorus 2.5 mg/dl (2.5-4.9); Potassium 4.3 mmol/L (3.5-5.1)
[2025-03-06] MEDS: PNEUMOCOCCAL VACCINE (PCV20) 20-VAL CONJ-DIP CRM/PF 0.5 ML SYR IM ONE (08:20)
[2025-03-06] MEDS: THIAMINE HCL 100 MG TAB PO SCH (08:22)
[2025-03-06] MEDS: SODIUM CHLORIDE 0.9% 500 ML IV ONE (15:28)
--- NOTE | 2025-03-06 18:19 | Hospitalist Progress Note ---
Date of Service March 06, 2025 Assessment & Plan (1) Complicated UTI (urinary tract infection): Plan per previous hospitalist notes with addendum: Patient is a 84-year-old female with past medical history significant for hypertension, CKD, hyperparathyroidism, GERD, hyperlipidemia, MDD, B12 deficiency, kidney stones, OA, osteoporosis who was admitted for a drug- resistant UTI. Patient also noting that she has been having black stools, abdominal pain and nausea and vomiting. 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 Reece Dietrich (urology) Patient to follow-up with urology for evaluation of ureteral stent and definitive management of ureteral stone ID consulted, recommend to continue cefepime, and transition to p.o. Cipro eventually if not resistant to currently having delirium, likely hospital related -- remains afebrile Continued IV cefepime blood cultures ordered 03/03 by previous hospitalist - grows GPB 03/04 Contacted ID to see if should switch abx from cefepime given changed mental status (per previous hospitalist pt has been confused/ delirious since stent placed) - ID recommends to stop abx 03/05 discussed w/ ID posit blood cultx, however pcr negat. - given no leukocytosis and afebrile - cont. to monitor off abx 03/06 blood cultx Paenibacillus sp. - discussed w/ ID no change in management Pt much improved, mental status back to baseline, remains afebrile, no leukocytosis, she wants to be discharged home. Family and CM involved in DC planning. Melena Possible GI Bleed Pt states she's been having abd pain with black stools, N/V 03/03 Hemoglobin remaining stable Continue Protonix IV twice daily Possible upper GI endoscopy once delirium resolves Delirium patient started to have confusion (after stent placed) repeat CT head: No acute process Usual amitriptyline, escitalopram, cetirizine held for now Not receiving narcotics or benzodiazepines 03/03 patient seems to be less confused, trying to answer more questions appropriately In the evening started to be more confused again continue delirium prevention strategies Blood cultures ordered, alok, aleishayprexa 03/04 Overnight pt did well per nursing staff currently answers appropriately yes, no, asks for help to sit up 03/05 She can tell where she is and what year it is. Tells me the names of her sons and where they live. Does not recall that son David was visiting her yesterday. She is upset that he drove far to see her. Recurrent falls CT head: No acute intracranial hemorrhage, midline shift, intracranial mass, hydrocephalus, territorial ischemia or abnormal extra-axial collection. Involutional changes with chronic microvascular ischemic disease. The calvarium is intact. The paranasal sinuses, mastoid air cells, and middle ear cavities are clear. IMPRESSION: No acute intracranial abnormality or calvarial fracture. Lumbar spine: No acute fracture or subluxation. 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 Echocardiogram: Moderate concentric LVH, left ventricular motion is normal, EF more than 70%, grade 1 Dysfunction, no significant valvular disease, intra-atrial septum is intact, no intra-atrial shunt check orthostatic vital signs Continue telemetry monitoring patient's family reports she also has history of vertigo which could be contributing to the falls PT OT evaluation Continue other home meds as ordered DVT prophylaxis: SCDs, In light of possible GI bleed Dispo: plan to DC home w/ family -> then to [facility] Admission and Anticipated Discharge Date Admission Date: February 27, 2025 Subjective Pt seen in follow-up for UTI, right ureteral stone, etc Per previous provider - pt has been confused since she had ureteral stent placed Discussed w/ RN at the bedside This AM pt is awake, and hold conversation, she can answer questions appropriately. She wishes to be discharged home. Discussed w/ family yesterday and they plan to take her home with them , then to rehab - [facility], confirmed by CM today. Discussed w/ urology (Dr. Dietrich) last evening - plan for close follow up and concrete plan for the family (as they live in [place]) Pt denies chest pain, shortness of breath, denies any abd. pain No report of overt melena or hematochezia no fevers blood cultx posit. for GPB, pcr negative - Paenibacillus sp - discussed w/ ID - no change in management. Pt overall much improved, answers appropriately, afebrile, no leukocytosis. Review of Systems Review of Systems: All systems reviewed & are unremarkable except as noted in Subjective Physical Exam Physical Exam: General- WD/WN F in NAD Eyes- anicteric Neck- no JVD Lungs- clear breath sounds bilaterally, no rales/wheezes Heart- normal rate, regular rhythm; no murmurs Abdomen- normal bowel sounds, nondistended, soft, nontender Extremities- no pretibial edema, moves extremities Neuro- awake, alert, oriented, answers no facial asymmetry, moves extremities Skin- warm & dry Results & Data Results & Data Vital Signs (Past 12 Hours) Vital Signs Temp Pulse Resp BP Pulse Ox O2 Del Method 03/06/25 15:35 36.9 C 66 20 111/69 95 Room Air 03/06/25 07:44 36.6 C 63 20 146/82 H 95 Room Air Laboratory Results 03/06/25 Range/Units 07:36 WBC 9.25 (4.8-10.8) K/ul RBC 3.64 L (4.20-5.40) M/uL Hgb 11.6 L (12.0-16.0) g/dl Hct 34.7 L (37.0-47.0) % MCV 95.3 (80.0-100.0) fL MCH 31.9 (25.0-34.0) pg MCHC 33.4 (32.0-36.0) g/dL RDW Std Deviation 43.2 (36.4-46.3) fL RDW Coeff of Katrin 12.3 (11.5-14.5) % Plt Count 285 (130-400) K/uL MPV 9.7 (9.4-12.4) fL Immature Gran % (Auto) 1.1 % Neut % (Auto) 67.3 % Lymph % (Auto) 21.8 % Douglas % (Auto) 6.4 % Eos % (Auto) 2.8 % Baso % (Auto) 0.6 % Neut # (Auto) 6.22 (1.40-6.50) K/uL Lymph # (Auto) 2.02 (1.20-3.40) K/uL Douglas # (Auto) 0.59 (0.11-0.59) K/uL Eos # (Auto) 0.26 (0.00-0.50) K/uL Baso # (Auto) 0.06 (0.00-0.20) K/uL Immature Gran # (Auto) 0.10 (0.01-0.20) K/uL Sodium 138 (136-145) mmol/L Potassium 4.3 (3.5-5.1) mmol/L Chloride 107 (98-107) mmol/L Carbon Dioxide 27 (21-32) mmol/L Anion Gap 4 (3-11) BUN 21 (6-23) mg/dl Creatinine 0.82 (0.6-1.2) mg/dl Est Cr Clr Drug Dosing 39.2 ml/min eGFR 70.93 BUN/Creatinine Ratio 25.6 H (10-20) Glucose 92 (70-99(Fasting)) mg/dl Calcium 9.8 (8.6-10.3) mg/dl Phosphorus 2.5 (2.5-4.9) mg/dl Magnesium 2.0 (1.7-2.4) mg/dl Medications Administered Current Inpatient Medications Acetaminophen (Acetaminophen 325 Mg Tab) 650 mg PO TID PRN PRN Reason: Pain Stop: 03/29/25 21:24 Last Admin: 03/06/25 08:21 Dose: 650 mg Amitriptyline HCl (Amitriptyline Hcl 10 Mg Tab) 10 mg PO [facility] Stop: 03/29/25 21:29 Last Admin: 03/01/25 21:09 Dose: 10 mg Amlodipine Besylate (Amlodipine Besylate 5 Mg Tab) [facility] [place] [facility] [place]: 03/30/25 08:59 Last Admin: 03/06/25 08:22 Dose: 5 mg Cetirizine HCl (Cetirizine Hcl 10 Mg Tablet) 10 mg PO DAILY [facility] Stop: 03/30/25 08:59 Last Admin: 03/02/25 08:31 Dose: 10 mg Cyanocobalamin (Cyanocobalamin (B-12) 500 Mcg Tablet) 1,000 mcg PO DAILY [facility] Stop: 03/30/25 08:59 Last Admin: 03/06/25 08:22 Dose: 1,000 mcg Escitalopram Oxalate (Escitalopram Oxalate 10 Mg Tab) 10 mg PO QAM [facility] Stop: 03/30/25 08:59 Last Admin: 03/02/25 08:30 Dose: 10 mg Fluticasone Propionate (Fluticasone Propionate Na Spr 16 Gm Btl) 2 sprays NA DAILY [facility] Stop: 03/30/25 08:59 Last Admin: 03/06/25 08:17 Dose: 2 sprays Hydralazine HCl (Hydralazine Hcl 20 Mg/Ml Vial) 5 mg IV Q6H PRN PRN Reason: systolic bp > 160 Stop: 03/30/25 11:46 Last Admin: 03/01/25 05:05 Dose: 5 mg Pantoprazole Sodium (Protonix) 40 mg in 10 mls @ 5 mls/min IV BID [facility] Stop: 03/30/25 08:59 Last Admin: 03/06/25 08:24 Dose: 5 mls/min Sodium Chloride (Nss) 500 mls @ 80 mls/hr IV .[id number] ONE Stop: 03/06/25 20:48 Last Admin: 03/06/25 15:28 Dose: 80 mls/hr Lactobacillus Acidophilus (Advanced Probiotic 625 Mg Capsule) 1,250 mg PO DAILY [facility] Stop: 03/30/25 08:59 Last Admin: 03/06/25 08:21 Dose: 1,250 mg Lidocaine (Lidocaine 5% 1 Patch) 1 patch [facility] [place] [facility] [place]: 03/29/25 16:59 Last Admin: 03/06/25 08:18 Dose: Not Given Melatonin (Melatonin 3 Mg Tab) 9 mg PO HS PRN PRN Reason: Sleep Stop: 03/29/25 21:24 Last Admin: 03/05/25 23:09 Dose: 9 mg Metoprolol Succinate (Metoprolol Succ 25mg Ext Rel Tab) 25 mg PO QAM [facility] Stop: 03/30/25 08:59 Last Admin: 03/06/25 08:22 Dose: 25 mg Miscellaneous (Remove Lidoderm Patch) 1 each N/A DAILY@2100 [facility] Stop: 03/29/25 20:59 Last Admin: 03/05/25 20:46 Dose: 1 each Nystatin (Nystatin Powder 15gm Btl) 1 appln EXT TID PRN PRN Reason: UNDER BREASTS NEEDED Stop: 03/29/25 21:14 Olanzapine (Olanzapine 10 Mg/2.1 Ml Sdv) 2.5 mg IM Q8H PRN PRN Reason: agitation Stop: 04/02/25 19:44 Ondansetron HCl (Ondansetron Inj 2 Mg/Ml 2 Ml Vial) 4 mg IV Q6H PRN PRN Reason: Nausea And Vomiting Stop: 03/29/25 16:50 Last Admin: 03/05/25 20:45 Dose: 4 mg Polyethylene Glycol (Polyethylene (Miralax) 17 Gm Pack) 17 gm PO DAILY PRN PRN Reason: Constipation Stop: 03/29/25 21:14 Last Admin: 03/03/25 17:26 Dose: 17 gm Potassium Citrate (Potassium Citrate 10 Meq Tab) 10 meq PO QAM [facility] Stop: 03/30/25 08:59 Last Admin: 03/06/25 08:22 Dose: 10 meq Psyllium Hydrophilic Mucilloid (Psyllium Or Guar Gum Fiber 4gm Packet) 4 gm PO DAILY PRN PRN Reason: Constipation Stop: 03/29/25 21:27 Rosuvastatin Calcium (Rosuvastatin Calcium 20 Mg Tab) 20 [facility] [place]: 03/30/25 08:59 Last Admin: 03/06/25 08:22 Dose: 20 mg Thiamine HCl (Thiamine Hcl 100 Mg Tab) 100 mg [facility] [place] [facility] [place]: 04/05/25 08:59 Last Admin: 03/06/25 08:22 Dose: 100 mg
[2025-03-06] MEDS: HEPARIN SOD 5,000 UNIT/0.5 ML VIAL SQ SCH (21:18)
[2025-03-06 22:36] VITALS: O2SAT 96
[2025-03-07 07:40] LABS: BUN Creatinine Ratio 19.3 (10-20); Calcium 9.8 mg/dl (8.6-10.3); Creatinine Clr Calc Pharmacy 36.6 ml/min; Magnesium 1.9 mg/dl (1.7-2.4); Phosphorus 2.9 mg/dl (2.5-4.9)
[2025-03-07 08:07] VITALS: RESP 16; TEMP 98.4
--- NOTE | 2025-03-07 09:56 | Discharge Summary ---
Date of Service March 07, 2025 Admission HPI Per Admitting Provider Patient is a 84-year-old female with past medical history significant for hypertension, CKD, hyperparathyroidism, GERD, hyperlipidemia, MDD, B12 deficiency, kidney stones, OA, osteoporosis who was admitted for a drug- resistant UTI. Patient also noting that she has been having black stools, abdominal pain and nausea and vomiting. patient states that for the past 2 weeks she has been having black tarry stools. States she went to her primary care provider 2 weeks ago and had a urine culture done which subsequently came back positive for bacteria that was resistant to certain antibiotics. States that her primary care provider prescribed her a medication to help with her pharmacy could not obtain that medication for some time. States that it took 6 days for her to get the medication. States that she took the first dose last night and is wondering whether that was causing her nausea and vomiting. States that her abdominal pain has been persistent. Has been having some burning with urination as well as abdominal pain. Denies any fevers but does note that she is freezing at night. Denies any urinary incontinence. Per [facility] chart review, patient called into her primary care's office concerned about her black tarry stool as well as the nausea and vomiting and abdominal pain and was advised to present to the emergency room. In the emergency room her labs were stable as well as her vitals. ED asking for admission based on outpatient urine culture noting Pseudomonas resistant to the oral fluoroquinolones and requiring admission for IV antibiotics. Admission Exam Per Admitting Provider General: Alert. No acute distress HEENT: NC/AT CV: RRR Resp: Breath sounds clear bilaterally, no increased effort of breathing Abdomen: Soft, nontender back: tender to palpation over right scapula area Extremities: No edema in lower extremities bilaterally. Principal Diagnosis Right ureteral stone Discharge Exam General- WD/WN F in NAD Eyes- anicteric Neck- no JVD Lungs- clear breath sounds bilaterally, no rales/wheezes Heart- normal rate, regular rhythm; no murmurs Abdomen- normal bowel sounds, nondistended, soft, nontender Extremities- no pretibial edema, moves extremities Neuro- awake, alert, oriented, answers no facial asymmetry, moves extremities Skin- warm & dry Discharge Data Allergies Allergy/AdvReac Type Severity Reaction Status Date / Time pollen extracts Allergy Mild RUNNY NOSE Verified 02/27/25 16:48 Penicillins Allergy Unknown HAPPENED A Verified 02/27/25 16:44 LONG TIME AGO. lisinopril AdvReac Intermediate Cough Verified 02/27/25 16:48 oxycodone AdvReac Intermediate nausea, Verified 02/27/25 16:44 constipation, "didn't feel right" Consultations 02/27/25 15:51 ED Decision to Admit Stat 02/28/25 08:02 Consult Urology Routine 02/28/25 08:03 Consult Infectious Diseases Routine 02/28/25 08:04 Consult Gastroenterology Routine Procedures Performed Operation Date: 03/01/25 09:00 Actual Procedures p Cystoscopy, Right Retrograde Pyleogram and Insertion of Right Ureteral Stent(Right) - Reece Dietrich MD Ordered Studies 02/27/25 20:56 CT Abd and Pelvis [CT abd pelvis IV con only] Urgent FINDINGS: Lung bases: Unremarkable. No mass. No consolidation. ABDOMEN: Liver: Unremarkable. No mass. Gallbladder and bile ducts: Cholecystectomy. No ductal dilation. Pancreas: Unremarkable. No mass. No ductal dilation. Spleen: Unremarkable. No splenomegaly. Adrenals: Unremarkable. No mass. Kidneys and ureters: 5 x 8 mm proximal right ureteral stone approximately 1 cm beyond the UPJ with mild right hydronephrosis. No pyelonephritis noted bilaterally. No left-sided obstructive stones. Stomach and bowel: Stomach is mildly distended with retained fluid and oral contents. No gastric mucosal thickening. No focal high-grade bowel obstruction. Scattered nonspecific gas distended small bowel loops in the abdomen. No dilation. Mild stool burden. Scattered diverticulosis of the descending and sigmoid colon without definitive diverticulitis. PELVIS: Appendix: A normal retrocecal appendix is noted. Bladder: Unremarkable. No mass. Reproductive: Status post hysterectomy. ABDOMEN and PELVIS: Intraperitoneal space: Unremarkable. No free air. No significant fluid collection. Bones/joints: Posterior fusion at L4-5 level. Grade 1 anterolisthesis of L3 on L4 and L5 on S1. No acute fracture. No dislocation. Soft tissues: Unremarkable. 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 No acute prevascular abnormality identified. No abdominal aortic aneurysm. Lymph nodes: Unremarkable. No enlarged lymph nodes. IMPRESSION: 1. 5 x 8 mm proximal right ureteral stone approximately 1 cm beyond the UPJ with mild right hydronephrosis. 2. No focal high-grade bowel obstruction. Scattered nonspecific gas distended small bowel loops in the abdomen. Suspect normal variation. No dilation. Mild stool burden. Scattered diverticulosis of the descending and sigmoid colon without definitive diverticulitis. No free intraperitoneal fluid or pneumoperitoneum. 02/28/25 12:06 CT head/brain wo con Routine FINDINGS: No acute intracranial hemorrhage, midline shift, intracranial mass, hydrocephalus, territorial ischemia or abnormal extra-axial collection. Involutional changes with chronic microvascular ischemic disease. The calvarium is intact. The paranasal sinuses, mastoid air cells, and middle ear cavities are clear. IMPRESSION: No acute intracranial abnormality or calvarial fracture. 03/01/25 08:57 FL retrograde includes kub Routine 03/02/25 16:07 CT head/brain wo con Stat FINDINGS: Borges-white differentiation is relatively preserved. No mass, mass effect or midline shift. Chronic ischemic white matter changes. No evidence of acute large territorial infarction or acute intracranial hemorrhage. Ventricles appear normal in size. Basal cisterns are patent. No depressed calvarial fracture. IMPRESSION: No acute intracranial process. Hospital Course (1) Complicated UTI (urinary tract infection): Plan Patient is a 84-year-old female with past medical history significant for hypertension, CKD, hyperparathyroidism, GERD, hyperlipidemia, MDD, B12 deficiency, kidney stones, OA, osteoporosis who was admitted for a drug- resistant UTI. Patient also noting that she has been having black stools, abdominal pain and nausea and vomiting. Right ureteral stone With mild hydronephrosis poss. UTI Pt with outpt urine cx from 02/13/25 that grew pseudomonas resistant to the fluoroquinolones but susceptible to cefepime States that her pcp prescribed her the medication cefpodoxime proxetil which she states it took a week for her pharmacy to get, and had one dose [employer] Repeat UA IV Cefepime Follow repeat urine sample outpatient urine culture: Pseudomonoas, R to fluoroquinolines repeat urine culture in the hospital: Pseudomonas, R to fluoroquinolines (30,000 cfu/ml) 03/01 Status post right ureteral stent placement by Dr. Reece Dietrich (urology) Patient to follow-up with urology for evaluation of ureteral stent and definitive management of ureteral stone ID consulted, recommend to continue cefepime, and transition to p.o. Cipro eventually if not resistant to currently having delirium, likely hospital related -- remains afebrile Continued IV cefepime blood cultures ordered 03/03 by previous hospitalist - grows GPB 03/04 Contacted ID to see if should switch abx from cefepime given changed mental status (per previous hospitalist pt has been confused/ delirious since stent placed) - ID recommends to stop abx 03/05 discussed w/ ID posit blood cultx, however pcr negat. - given no leukocytosis and afebrile - cont. to monitor off abx 03/06 blood cultx Paenibacillus sp. - discussed w/ ID no change in management Pt much improved, mental status back to baseline, remains afebrile, no leukocytosis, she wants to be discharged home. Family and CM involved in DC planning. Plan to DC w/ family today (03/07) and then plan for [facility]. Melena Possible GI Bleed Pt states she's been having abd pain with black stools, N/V 03/03 Hemoglobin remaining stable Continue Protonix IV twice daily Possible upper GI endoscopy once delirium resolves Will DC on PO protonix, outpt follow up Delirium patient started to have confusion (after stent placed) repeat CT head: No acute process Usual amitriptyline, escitalopram, cetirizine held for now Not receiving narcotics or benzodiazepines 03/03 patient seems to be less confused, trying to answer more questions appropriately In the evening started to be more confused again continue delirium prevention strategies Blood cultures ordered, felicia dickinson 03/04 Overnight pt did well per nursing staff currently answers appropriately yes, no, asks for help to sit up 03/05 She can tell where she is and what year it is. Tells me the names of her sons and where they live. Does not recall that son David was visiting her yesterday. She is upset that he drove far to see her. 03/06 Mental status back to baseline Recurrent falls CT head: No acute intracranial hemorrhage, midline shift, intracranial mass, hydrocephalus, territorial ischemia or abnormal extra-axial collection. Involutional changes with chronic microvascular ischemic disease. The calvarium is intact. The paranasal sinuses, mastoid air cells, and middle ear cavities are clear. IMPRESSION: No acute intracranial abnormality or calvarial fracture. Lumbar spine: No acute fracture or subluxation. CT head negative for acute process residential monitor no arrhythmia Echocardiogram: Moderate concentric LVH, left ventricular motion is normal, EF more than 70%, grade 1 Dysfunction, no significant valvular disease, intra-atrial septum is intact, no intra-atrial shunt check orthostatic vital signs Continue telemetry monitoring patient's family reports she also has history of vertigo which could be contributing to the falls PT OT evaluation Continue other home meds as ordered Dispo: plan to DC home w/ family -> then to [facility] Total Time Total Time Spent Total Time Spent (In Minutes): 60 Discharge Plan Discharge Items Patient Disposition: Home - Self-Care Reason For Visit: COMPLICATED UTI Discharge Diagnosis: Right ureteral stone Activity: Per Instructions section Non-emergency contact: Primary Care Provider, Specialist and Urologist Call non-emergency contact if: you have any medication questions and your symptoms worsen Follow-up/Referrals: Von Hernandez, [Primary Care Provider] - Diet: Regular Addtl Attending Provider Instructions: Follow up with primary care doctor, and urologist. Make sure to stay well hydrated. You can take miralax (over the counter) to prevent constipation. Take pantoprazole twice a day, discuss with your primary care doctor if /when to decrease to daily or stop the medication altogether. You may need referral to gastroenterology. Pending Studies at Discharge: Yes Studies:: final results of blood cultx Stand-Alone Forms: My [facility] [employer], Smoking Cessation Medications and DC Order Prescriptions: New thiamine HCl (vitamin B1) 100 mg Tablet 100 mg PO QAM Qty: 20 0RF pantoprazole 40 mg Tablet,Delayed Release (Dr/Ec) 40 mg PO BID Qty: 60 0RF Continued tramadol 50 mg tablet 50 mg PO Q6H PRN (Reason: pain) Qty: 30 0RF meloxicam 15 mg tablet 15 mg PO DAILY Qty: 30 3RF metoprolol succinate [Toprol XL] 25 mg tablet extended release 24 hr 25 mg PO QAM rosuvastatin [Crestor] 20 mg tablet 20 mg PO QAM psyllium husk [Metamucil] 0.4 gram Capsule 0.4 g PO DAILY PRN (Reason: Constipation) acetaminophen 650 mg Tablet Extended Release 650 mg PO TID PRN (Reason: Pain) amlodipine 5 mg tablet 2.5 mg PO QAM escitalopram oxalate 10 mg tablet 10 mg PO QAM cetirizine [Zyrtec] 10 mg Tablet 10 mg PO DAILY famotidine 20 mg Tablet 20 mg PO BID amitriptyline 10 mg tablet 10 mg PO HS potassium citrate 10 mEq (1,080 mg) tablet extended release 10 meq PO QAM cyanocobalamin (vitamin B-12) 1,000 mcg Tablet, Sublingual 1,000 mcg SUBLINGUAL DAILY nystatin [Klayesta] 100,000 unit/gram powder 1 applic TOPICAL TID PRN (Reason: UNDER BREASTS NEEDED) polyethylene glycol 3350 [Miralax] 17 gram/dose Powder 17 g PO DAILY PRN (Reason: Constipation) fluticasone propionate 50 mcg/actuation [place],Suspension 2 spray INTRANASAL DAILY Rx Instructions: administer into each nostril omeprazole 20 mg Tablet,Delayed Release (Dr/Ec) 20 mg PO DAILY melatonin 10 mg Tablet,Chewable 20 mg PO HS Discontinued cefpodoxime 100 mg tablet 100 mg PO BID Rx Instructions: STARTED 02/24/25 FOR 7 DAYS. Discharge Orders: Discharge Order (Routine); Ordered 03/07/25 Ordered By: Robson Fu/Other Patient Handouts: Vitamin B1 (thiamine) Oral Tablet, Polyethylene Glycol 3350 Powder For Oral Solution, Having a Ureteral Stent, Understanding Kidney Stones, Preventing Kidney Stones Admission Data Admit Date/Time: 02/27/25 16:51 Attending Provider: [place] Admit Provider: Shannan Ni Primary Care Provider: Von Hernandez Other Providers: Shannan Ni; Henri Rivera; Nohemy Kulkarni; Reji Friend; Anay Miguel; Deisi Ayala; Reece Dietrich; Bibi Staton; James Solo; David Smiley; Chriss Orellana; Pau Prajapati; Chris Freeman I.; Cabrera Nava II; Merari Leonard; Kevin Sosa; Ryan Rea; Jaime Carter; Edin Fallon; Huong Rivero; Leander Milligan; Cristal Lewis; Satinder Fernandez; Ariana Reeves; Marylu Martino; Danielle Cervantes; Candida Lopez; Willie Corey; Gopi Gallegos; Adwoa Ron; Zeeshan Roy; Rashida Stratton; Valentina Corona; Sherlyn May; Ginger Flores; Bere Marie; Da Garcia; Dandy Silva; Nasreen Reyna; Humberto Carreno Jr; Mk Collins.; Tr Dunlap; Skinny Valenzuela; William Payan; Melissa Post; Cecilio Mcgarry I; Edwina Elmore; Ananth Perez; Juancarlos Hernández; [facility]; Darren Ritchie.
[2025-03-07 09:57] VITALS: BP 132/65; PULSE 62
[2025-03-07] MEDS: PANTOprazole 40 MG TAB PO SCH (10:15)
== END 2025-03-07 19:39 | disposition home or self-care (01) | DRG 660 ==
LOC: ED 11:57 → SUATTDRO 16:51 → EDINP 16:51 → 3N 21:16 → 2W 02-28 18:45